=== PATIENT | female | born 1985 | race Caucasian/White ===

== ENCOUNTER 2017-10-03 18:03 | Emergency (ER) | payer MEDICAID, OTHER ==
[~2017-10-03] VITALS: Ht 167.6 cm; Wt 61.2 kg
[2017-10-03] MEDS ORDERED: MEDR150V IM (18:34)
--- NOTE | 2017-10-03 18:38 | ED Abdominal Pain ---
General Chief Complaint: Abdominal/GI Problems Stated Complaint: LOWER ABD PAIN/BLOOD IN URINE Nursing Triage Note: Pt claims her son jumped on her low abdomen with his knees yesterday evening. c/o abd pain and low back pain. States she went to [facility] yesterday and "they didn't do anything for her". Sepsis Screen: No Definite Risk Source of Information: Patient Exam Limitations: No Limitations History of Present Illness Time Seen By Provider: 18:28 Initial Comments Patient has ER by private conveyance with a chief complaint that last night while wrestling with HER-2 stepsons 5 and 7 years old the 7-year-old who is approximately 50 pounds jumped on her abdomen while she was laying on her back and landed with both knees just suprapubically. She started having a lot of pain so she did not go to work at night. She also is expressing pain in her back that runs up her spine and about her thoracic T8 level. She has no history of back pain. She says she also has experienced painful urination since then. She has used ibuprofen which gives her marginal relief. Heating pad worked very well to relieve her pain. She's had a history of 2 sections in the past. No other surgeries on her abdomen. She says she went to [facility] and that took urine but did no further evaluation. She denies any nausea or vomiting , fevers, chills, shortness of breath, chest pain, cough. She has not had a bowel movement since the accident. Allergies and Home Medications Allergies Coded Allergies: Penicillins (Verified Allergy, Unknown, 10/03/17) morphine (Verified Allergy, Unknown, 10/03/17) Home Medications Medroxyprogesterone Acetate 150 Mg/1 Ml Vial, 150 MG IM UD, (Reported) Review of Systems Constitutional: No chills, No fever Respiratory: Denies Cough, Denies Shortness of Air Cardiovascular: Denies Chest Pain, Denies Lightheadedness Gastrointestinal: See HPI, Denies Abdomen Distended, Abdominal Pain, Denies Blood Streaked Stools Genitourinary: See HPI, Burning, Denies Discharge, Denies Drainage, Pain Musculoskeletal: see HPI, back pain, No joint pain Skin: No pruritus, No rash Psychiatric/Neurological: Denies Headache, Denies Numbness, Denies Paresthesia Past Iipvjje-Cmeloa-Tuzyob Hx Patient Social History Alcohol Use: Denies Use Recreational Drug Use: No Smoking Status: Current Everyday Smoker Recent Foreign Travel: No Contact w/Someone Who Travel: No Recent Infectious Disease Expo: No Surgeries History of Surgeries: Yes Surgeries: Section Respiratory History of Respiratory Disorde: Yes Respiratory Disorders: Asthma Cardiovascular History of Cardiac Disorders: No Neurological History of Neurological Disord: No Reproductive System : No Genitourinary History of Genitourinary Disor: No Gastrointestinal History of Gastrointestinal Di: No Musculoskeletal History of Musculoskeletal Dis: No Endocrine History of Endocrine Disorders: No HEENT History of HEENT Disorders: No Cancer History of Cancer: No Psychosocial History of Psychiatric Problem: No Integumentary History of Skin or Integumenta: No Blood Transfusions History of Blood Disorders: No Physical Exam Vital Signs VS - Last 72 Hours, by Label 10/03/17 18:19 Temp 98.2 Pulse 70 Resp 18 B/P (MAP) 139/91 Pulse Ox 98 O2 Delivery Room Air Capillary Refill : Less Than 3 Seconds General Appearance: WD/WN, mild distress HEENT: PERRL/EOMI, pharynx normal Neck: non-tender, normal inspection Respiratory: chest non-tender, lungs clear, normal breath sounds Cardiovascular: normal peripheral pulses, regular rate, rhythm, no edema Gastrointestinal: normal bowel sounds, soft, No rebound, tenderness (suprapubic ), No mass Extremities: non-tender, normal capillary refill Neurologic/Psychiatric: alert, oriented x 3 Skin: normal color, warm/dry Progress/Results/Core Measures Results/Orders Lab Results Laboratory Tests Test 10/03/17 18:20 Range/Units Urine Color YELLOW Urine Clarity CLEAR Urine pH 7 5-9 Urine Specific [place] 1.015 L 1.016-1.022 Urine Protein NEGATIVE NEGATIVE Urine Glucose (UA) NEGATIVE NEGATIVE Urine Ketones NEGATIVE NEGATIVE Urine Nitrite NEGATIVE NEGATIVE Urine Bilirubin NEGATIVE NEGATIVE Urine Urobilinogen 1 NORMAL MG/DL Urine Leukocyte Esterase 1+ H NEGATIVE Urine RBC (Auto) 3+ H NEGATIVE Urine RBC 0-2 /HPF Urine WBC 2-5 /HPF Urine Squamous Epithelial Cells 5-10 /HPF Urine Crystals NONE /LPF Urine Bacteria LARGE H /HPF Urine Casts NONE /LPF Urine Mucus LARGE H /LPF Urine Culture Indicated YES My Orders Orders - NANCY PRADO Ua Culture If Indicated (10/03/17 18:35) Ketorolac Injection (Toradol Injection) (10/03/17 19:00) Urine Culture (10/03/17 18:20) Medications Given in ED Current Medications Medications Dose Ordered Sig/Klever Route Start Time Stop Time Status Last Admin Dose Admin Ketorolac Tromethamine 15 mg ONCE ONCE IVP 10/03/17 19:00 10/03/17 19:01 DC 10/03/17 19:06 15 MG Vital Signs/I&O Vital Sign - Last 12Hours 10/03/17 18:19 Temp 98.2 Pulse 70 Resp 18 B/P (MAP) 139/91 Pulse Ox 98 O2 Delivery Room Air Blood Pressure Mean: 107 Progress Note #1: Time: 18:37 Progress Note We will obtain a UA. If there is no blood or concerning features and will just x -ray early thoracic and lumbar spine. If there is any blood in it we'll get a CT of the abdomen with contrast looking for contusion, rupture, ureter laceration etc. This seems unlikely given the history that this would result in severe injury. However she is describing quite a bit of pain and has now missed 2 shifts of work. Progress Note #2: Time: 19:46 Progress Note UA shows just a few red blood cells in it. Discussed a CT scan with contrast to look for possible damage to urinary system versus observation and follow up outpatient with primary care physician in repeating UA in a few days. Patient feels that she would like to continue the pain medicines and follow up outpatient with her primary care physician for further management. We discussed the risk benefits and alternatives to observation versus further invasive testing to include radiation, incidental illness, falsely negative findings. Departure Impression Impression: Primary Impression: Abdominal wall pain Disposition: 01 HOME, SELF-CARE Condition: Stable Departure-Patient Inst. Decision time for Depature: 19:48 Referrals: NO,LOCAL PHYSICIAN (PCP/Family) Primary Care Physician Patient Instructions: Acute Abdomen (Belly Pain), Adult (DC) Add. Discharge Instructions: Drink plenty of fluids to flush her bladder out. Take Tylenol 1000 mg every 8 hours along with ibuprofen 800 mg every 8 hours or you may use Aleve instead of ibuprofen 2 capsules twice a day. Heating pad is reasonable. Follow up with your primary care physician this week to recheck her urine. All discharge instructions reviewed with patient and/or family. Voiced understanding. Work/School Note: Work Release Form Date Seen in the Emergency Department: Oct 03, 2017 Return to Work: Oct 04, 2017 Restrictions: No Restrictions NANCY PRADO Oct 03, 2017 18:38
[2017-10-03 18:44] LABS: BILIRUBIN,URINE NEGATIVE (NEGATIVE); KETONES,URINE NEGATIVE (NEGATIVE); LEUKOCYTE ESTERASE ,URINE 1+ (NEGATIVE); NITRITE,URINE NEGATIVE (NEGATIVE); PH,URINE 7 (5-9); PROTEIN,URINE NEGATIVE (NEGATIVE); UROBILINOGEN,URINE 1 MG/DL (NORMAL)
[2017-10-03] MEDS ORDERED: KETOROLAC 30 MG/ML VIAL IVP ONE (19:00)
[2017-10-03 19:57] VITALS: BP 120/93
== END 2017-10-03 19:55 | disposition home or self-care (01) ==
LOC: ER 18:06
DX: R10.30 Lower abdominal pain, unspecified (principal); J45.909 Unspecified asthma, uncomplicated; F17.200 Nicotine dependence, unspecified, uncomplicated; Z87.59 Personal history of other complications of pregnancy, childbirth and the puerperium
CPT/HCPCS: 81000; 87088; 96374; 99284

== ENCOUNTER 2017-10-07 22:20 | Emergency (ER) | payer MEDICAID ==
[~2017-10-07] VITALS: Ht 167.6 cm; Wt 59.0 kg
[~2017-10-07 22:20] MED LIST: MEDR150V IM
[2017-10-07] MEDS ORDERED: NS IV 1000 ML 1,000 ML IV ONE (23:23)
[2017-10-07 23:29] LABS: KETONES,URINE 1+ (NEGATIVE); LEUKOCYTE ESTERASE ,URINE 2+ (NEGATIVE); NITRITE,URINE NEGATIVE (NEGATIVE); PH,URINE 6.5 (5-9); PROTEIN,URINE 1+ (NEGATIVE); UROBILINOGEN,URINE 4 MG/DL (NORMAL)
--- NOTE | 2017-10-07 23:29 | ED Abdominal Pain ---
General Chief Complaint: Abdominal/GI Problems Stated Complaint: R SIDE STOMACH PAIN Source of Information: Patient, Old Records Exam Limitations: No Limitations History of Present Illness Time Seen By Provider: 23:22 Initial Comments Patient re-presents to the ER after having a episode of roughhousing with her children in getting kneed in the right side Tuesday, 5 days ago. She was seen that day and examined by this provider and after NSAIDs her pain got better so we elected not to do any further imaging and just do an observation period. Patient says she went home and her pain has came back despite using Tylenol Motrin with no relief. Her pain is now worse than it was before. She is having a hard time stretching out her left leg to full extension because it makes the pain on her right lower quadrant and right upper quadrant worse. She's had no surgeries on her belly except for 2 C-sections. She is having no problems with her bowels and had a bowel movement today. She is been urinating okay without this area or discharge. She's had some nausea and vomited after she ate pizza today. She says she's not to keep anything down after she eats or drinks. She has not seen any blood in the stool or vomit. She has not followed up with her primary care physician yet. Allergies and Home Medications Allergies Coded Allergies: Penicillins (Verified Allergy, Unknown, 10/07/17) morphine (Verified Allergy, Unknown, 10/07/17) Home Medications Albuterol Sulfate 1 Puff Puff, 2 PUFF IH Q4H, (Reported) 1 PUFF = 90 MCG Ibuprofen 200 Mg Tablet, 200 MG PO, (Reported) Medroxyprogesterone Acetate 150 Mg/1 Ml Vial, 150 MG IM UD, (Reported) Review of Systems Constitutional: No chills, No diaphoresis EENTM: No Symptoms Reported Respiratory: Denies Cough, Denies Shortness of Air Cardiovascular: Denies Chest Pain, Denies Lightheadedness Gastrointestinal: See HPI, Denies Abdomen Distended, Abdominal Pain, Nausea, Vomiting, Other Genitourinary: Denies Burning, Denies Discharge, Denies Drainage Musculoskeletal: No back pain, No joint pain Skin: No pruritus, No rash Psychiatric/Neurological: Denies Headache, Denies Numbness, Denies Paresthesia Past Lfgxuwz-Ynadde-Pjidgw Hx Patient Social History Recent Foreign Travel: No Contact w/Someone Who Travel: No Surgeries History of Surgeries: Yes Surgeries: Section Respiratory History of Respiratory Disorde: Yes Respiratory Disorders: Asthma Cardiovascular History of Cardiac Disorders: No Neurological History of Neurological Disord: No Genitourinary History of Genitourinary Disor: No Gastrointestinal History of Gastrointestinal Di: No Musculoskeletal History of Musculoskeletal Dis: No Endocrine History of Endocrine Disorders: No HEENT History of HEENT Disorders: No Cancer History of Cancer: No Psychosocial History of Psychiatric Problem: No Integumentary History of Skin or Integumenta: No Blood Transfusions History of Blood Disorders: No Physical Exam Vital Signs VS - Last 72 Hours, by Label 10/07/17 23:43 Temp 97.8 Pulse 76 Resp 14 B/P (MAP) 130/85 (100) Pulse Ox 98 O2 Delivery Room Air Capillary Refill : General Appearance: WD/WN, moderate distress HEENT: PERRL/EOMI, pharynx normal Neck: non-tender, normal inspection Respiratory: chest non-tender, lungs clear, normal breath sounds, no respiratory distress, no accessory muscle use Cardiovascular: normal peripheral pulses, regular rate, rhythm, no edema Gastrointestinal: normal bowel sounds, soft, no organomegaly, No distended, rebound, tenderness (right lower quadrant also some pain in the right upper quadrant without Martines's positive sign), other (pain to percussion to her heel located to her right lower quadrant. Pain in her right lower quadrant with shaking of her abdomen.) Extremities: normal inspection, no pedal edema, normal capillary refill Back: normal inspection, no CVA tenderness Neurologic/Psychiatric: alert, normal mood/affect, oriented x 3 Skin: normal color, warm/dry Progress/Results/Core Measures Results/Orders Lab Results Laboratory Tests Test 10/07/17 23:15 10/07/17 23:25 Range/Units Urine Color YELLOW Urine Clarity SLIGHTLY CLOUDY Urine pH 6.5 5-9 Urine Specific [place] 1.020 1.016-1.022 Urine Protein 1+ H NEGATIVE Urine Glucose (UA) NEGATIVE NEGATIVE Urine Ketones 1+ H NEGATIVE Urine Nitrite NEGATIVE NEGATIVE Urine Bilirubin 1+ H NEGATIVE Urine Urobilinogen 4 H NORMAL MG/DL Urine Leukocyte Esterase 2+ H NEGATIVE Urine RBC (Auto) 4+ H NEGATIVE Urine RBC 5-10 H /HPF Urine WBC 2-5 /HPF Urine Squamous Epithelial Cells 10-25 H /HPF Urine Crystals NONE /LPF Urine Bacteria LARGE H /HPF Urine Casts NONE /LPF Urine Mucus LARGE H /LPF Urine Culture Indicated YES Urine Test NEGATIVE NEGATIVE Urine Opiates Screen NEGATIVE NEGATIVE Urine Oxycodone Screen NEGATIVE NEGATIVE Urine Methadone Screen NEGATIVE NEGATIVE Urine Propoxyphene Screen NEGATIVE NEGATIVE Urine Barbiturates Screen NEGATIVE NEGATIVE Ur Tricyclic Antidepressants Screen NEGATIVE NEGATIVE Urine Phencyclidine Screen NEGATIVE NEGATIVE Urine Amphetamines Screen NEGATIVE NEGATIVE Urine Methamphetamines Screen NEGATIVE NEGATIVE Urine Benzodiazepines Screen NEGATIVE NEGATIVE Urine Cocaine Screen NEGATIVE NEGATIVE Urine Cannabinoids Screen NEGATIVE NEGATIVE White Blood Count 10.8 4.3-11.0 10^3/uL Red Blood Count 4.86 4.35-5.85 10^6/uL Hemoglobin 14.8 11.5-16.0 G/DL Hematocrit 43 35-52 % Mean Corpuscular Volume 88 80-99 FL Mean Corpuscular Hemoglobin 31 25-34 PG Mean Corpuscular Hemoglobin Concent 35 32-36 G/DL Red Cell Distribution Width 12.5 10.0-14.5 % Platelet Count 223 130-400 10^3/uL Mean Platelet Volume 12.0 H 7.4-10.4 FL Neutrophils (%) (Auto) 66 42-75 % Lymphocytes (%) (Auto) 25 12-44 % Monocytes (%) (Auto) 8 0-12 % Eosinophils (%) (Auto) 1 0-10 % Basophils (%) (Auto) 0 0-10 % Neutrophils # (Auto) 7.1 1.8-7.8 X 10^3 Lymphocytes # (Auto) 2.7 1.0-4.0 X 10^3 Monocytes # (Auto) 0.9 0.0-1.0 X 10^3 Eosinophils # (Auto) 0.1 0.0-0.3 10^3/uL Basophils # (Auto) 0.0 0.0-0.1 10^3/uL Sodium Level 141 135-145 MMOL/L Potassium Level 3.7 3.6-5.0 MMOL/L Chloride Level 108 H 98-107 MMOL/L Carbon Dioxide Level 24 21-32 MMOL/L Anion Gap 9 5-14 MMOL/L Blood Urea Nitrogen 9 7-18 MG/DL Creatinine 0.82 0.60-1.30 MG/DL Estimat Glomerular Filtration Rate > 60 BUN/Creatinine Ratio 11 Glucose Level 91 70-105 MG/DL Calcium Level 9.8 8.5-10.1 MG/DL Magnesium Level 2.3 1.8-2.4 MG/DL Total Bilirubin 0.6 0.1-1.0 MG/DL Aspartate Amino Transf (AST/SGOT) 12 5-34 U/L Alanine Aminotransferase (ALT/SGPT) 13 0-55 U/L Alkaline Phosphatase 54 40-136 U/L Total Protein 7.8 6.4-8.2 GM/DL Albumin 4.5 3.2-4.5 GM/DL Lipase 22 8-78 U/L My Orders Orders - NANCY PRADO Cbc With Automated Diff (10/07/17 23:23) Comprehensive Metabolic Panel (10/07/17 23:23) Drug Screen Stat (Urine) (10/07/17 23:23) Hcg,Qualitative Urine (10/07/17 23:23) Lipase (10/07/17 23:23) Magnesium (10/07/17 23:23) Ua Culture If Indicated (10/07/17 23:23) Saline Lock/Iv-Start (10/07/17 23:23) Ns Iv 1000 Ml (Sodium Chloride 0.9%) (10/07/17 23:23) Ketorolac Injection (Toradol Injection) (10/07/17 23:30) Urine Culture (10/07/17 23:15) Ct Abdomen/Pelvis W (10/08/17 00:01) Iohexol Injection (Omnipaque 350 Mg/Ml 1 (10/08/17 00:45) Ns (Ivpb) (Sodium Chloride 0.9% Ivpb Bag (10/08/17 00:45) Medications Given in ED Current Medications Medications Dose Ordered Sig/Klever Route Start Time Stop Time Status Last Admin Dose Admin Iohexol 100 ml ONCE ONCE IV 10/08/17 00:45 10/08/17 00:46 UNV 10/08/17 00:36 100 ML Ketorolac Tromethamine 15 mg ONCE ONCE IVP 10/07/17 23:30 12 23:31 DC 10/07/17 23:34 15 MG Sodium Chloride 80 ml ONCE ONCE IV 10/08/17 00:45 10/08/17 00:46 UNV 10/08/17 00:36 80 ML Sodium Chloride 1,000 ml @ 0 mls/hr Q0M ONCE IV 10/07/17 23:23 10/07/17 23:25 DC 10/07/17 23:33 0 MLS/HR Vital Signs/I&O Vital Sign - Last 12Hours 10/07/17 23:43 Temp 97.8 Pulse 76 Resp 14 B/P (MAP) 130/85 (100) Pulse Ox 98 O2 Delivery Room Air Progress Note #1: Time: 00:50 Progress Note She had 0-2 red blood cells earlier in the week and now she has 5-10 per high- power field. CT of her abdomen and if we don't see anything over and she may need referral to urology. Progress Note #2: Time: 02:09 Progress Note Pain and nausea has improved. She says that earlier this week she went to follow -up with a nurse practitioner that she seen in the past in [place] after being seen at the ER and they took a urinalysis and told her she had a urinary tract infection. The put her on Bactrim but her symptoms have not gotten any better on the Bactrim. She is still having nausea and pain all week. She says she has one day left of Bactrim. This lends credence to the patient's symptoms not being due to a urinary tract infection. The patient has not had a period in several months because she has been on Depo-Provera most year. Diagnostic Imaging Diagonstic Imaging: CT Plain Films/CT/US/NM/MRI: abdomen, pelvis Comments Stat read impression: No acute intra-abdominal abnormality. Reviewed: Reviewed by Me (with contrast) Consults Consults : Consulting Physician: CHENCHO AREVALO MD Consults Notes Discussed the case imaging and findings and he agrees the patient should be seen in his clinic and she'll probably need cystoscopy. Departure Impression Impression: Primary Impression: Abdominal wall pain Additional Impression: Hematuria Qualified Codes: R31.29 - Other microscopic hematuria Disposition: HOME, SELF-CARE Condition: Improved Departure-Patient Inst. Decision time for Depature: 02:10 Referrals: NO,LOCAL PHYSICIAN (PCP/Family) Primary Care Physician Patient Instructions: Blood in the Urine (Hematuria), Adult (DC) Add. Discharge Instructions: If you're having pain you can use heating pads, icy hot, Biofreeze. You can also use Tylenol 1000 mg every 8 hours mixed with ibuprofen 800 mg every 8 hours. If this does not control your pain then you may also use the hydrocodone one tablet every 6 hours. If you're using hydrocodone you should use the MiraLAX 1 capful in a glass of water, juice, coffee etc. daily. Tuesday morning please call Dr. Arevalo, urologist at his office at [phone] and get an appointment to be followed up for your blood in the urine. All discharge instructions reviewed with patient and/or family. Voiced understanding. Scripts Ondansetron (Ondansetron Odt) 4 Mg Tab.rapdis 4 MG PO Q6H Y for NAUSEA/VOMITING, #12 TAB 0 Refills Prov: NANCY PRADO 10/08/17 Hydrocodone/Acetaminophen (Hydrocodon -Acetaminophen 5-325) 1 Each Tablet 1 EACH PO Q6H Y for BREAKTHROUGH PAIN, #16 TAB 0 Refills Prov: NANCY PRADO 10/08/17 Copy Copies To 1: CHENCHO AREVALO MD, TITUS J Oct 07, 2017 23:29
[2017-10-07] MEDS ORDERED: KETOROLAC 30 MG/ML VIAL IVP ONE (23:30)
[2017-10-07 23:33] LABS: BASOPHILS % (AUTO) 0 % (0-10); EOSINOPHILS # (AUTO) 0.1 10^3/uL (0.0-0.3); EOSINOPHILS % (AUTO) 1 % (0-10); LYMPHOCYTES # (AUTO) 2.7 X 10^3 (1.0-4.0); LYMPHOCYTES % (AUTO) 25 % (12-44); MEAN CORPUSCULAR HEMOGLOBIN 31 PG (25-34); MEAN CORPUSCULAR HGB CONC 35 G/DL (32-36); MEAN CORPUSCULAR VOLUME 88 FL (80-99); MONOCYTES # (AUTO) 0.9 X 10^3 (0.0-1.0); MONOCYTES % (AUTO) 8 % (0-12); NEUTROPHILS # (AUTO) 7.1 X 10^3 (1.8-7.8); NEUTROPHILS % (AUTO) 66 % (42-75); PLATELET COUNT 223 10^3/uL (130-400); RED BLOOD COUNT 4.86 10^6/uL (4.35-5.85); RED CELL DISTRIBUTION WIDTH 12.5 % (10.0-14.5); WHITE BLOOD COUNT 10.8 10^3/uL (4.3-11.0)
[2017-10-07 23:39] LABS: BILIRUBIN,URINE 1+ (NEGATIVE)
[2017-10-07] MEDS ORDERED: RT-ALBUINH IH (23:53)
[2017-10-07] MEDS ORDERED: IBUP-2055 PO (23:53)
[2017-10-07 23:54] LABS: ALANINE AMINOTRANSFERASE 13 U/L (0-55); ALBUMIN 4.5 GM/DL (3.2-4.5); ANION GAP 9 MMOL/L (5-14); ASPARTATE AMINO TRANSFERASE 12 U/L (5-34); BILIRUBIN,TOTAL 0.6 MG/DL (0.1-1.0); BLOOD UREA NITROGEN 9 MG/DL (7-18); BUN/CREATININE RATIO 11; CALCIUM 9.8 MG/DL (8.5-10.1); CARBON DIOXIDE 24 MMOL/L (21-32); CHLORIDE 108 MMOL/L (98-107); CREATININE SERUM 0.82 MG/DL (0.60-1.30); GFR ESTIMATED > 60; GLUCOSE 91 MG/DL (70-105); LIPASE 22 U/L (8-78); MAGNESIUM 2.3 MG/DL (1.8-2.4); POTASSIUM 3.7 MMOL/L (3.6-5.0); SODIUM 141 MMOL/L (135-145); TOTAL PROTEIN 7.8 GM/DL (6.4-8.2)
[2017-10-08] MEDS ORDERED: NS 100 ML (IVPB) BAG IV ONE (00:45)
[2017-10-08] MEDS ORDERED: IOHEXOL 350 MG/ML 100 ML (OMNIPAQUE 350) VIAL IV ONE (00:45)
[2017-10-08] MEDS ORDERED: ONDA4TAB11 PO (02:13)
[2017-10-08] MEDS ORDERED: HYDR-3812 PO (02:13)
[2017-10-08 02:25] VITALS: BP 130/85
--- NOTE | 2017-10-08 09:26 | Diagnostic Imaging Report ---
PROCEDURE: CT abdomen and pelvis with contrast. TECHNIQUE: Multiple contiguous axial images were obtained through the abdomen and pelvis after administration of intravenous contrast. INDICATION: Abdominal pain. COMPARISON: None available FINDINGS: Mild bibasilar atelectasis. The liver, spleen, adrenal glands, and pancreas are unremarkable. The gallbladder is predominantly decompressed, though otherwise unremarkable. The kidneys are unremarkable. No aneurysmal dilatation of abdominal aorta. The uterus and adnexal regions are unremarkable for age. The urinary bladder is predominantly decompressed, though otherwise unremarkable. The appendix is unremarkable. No bowel obstruction or pneumatosis. No significant adenopathy, free air, or free fluid within the abdomen or pelvis. No acute osseous abnormality. IMPRESSION: No acute abnormality identified within abdomen or pelvis. Agree with preliminary interpretation. Dictated by: Dictated on workstation # [id number]
== END 2017-10-08 02:20 | disposition home or self-care (01) ==
LOC: EDUNIT# 22:20 → ER 22:21
DX: R10.31 Right lower quadrant pain (principal); R31.9 Hematuria, unspecified; J45.909 Unspecified asthma, uncomplicated; Z87.59 Personal history of other complications of pregnancy, childbirth and the puerperium
CPT/HCPCS: 36415; 74177; 80053; 80306; 81000; 83690; 83735; 84703; 85025; 87088

== ENCOUNTER 2017-11-28 18:45 | Emergency (ER) | payer MEDICAID ==
[~2017-11-28] VITALS: Ht 167.6 cm; Wt 74.4 kg
[~2017-11-28 18:45] MED LIST changes: +ACHD5005 PO; +IBUP-2055 PO; +ONDA4TAB11 PO; +RT-ALBUINH IH
--- NOTE | 2017-11-28 19:20 | ED Abdominal Pain ---
General Stated Complaint: LUMP ON STOMACH, COUGH Source of Information: Patient Exam Limitations: No Limitations History of Present Illness Date Seen by Provider: Nov 28, 2017 Time Seen by Provider: 19:18 Initial Comments LUQ abdominal wall lump since last night came about after episodes of coughing, fevers x1 week. Nasuea. Normal bowels. Timing/Duration: 1-2 Days Severity/Quality: Moderate Location: LUQ Radiation: No Radiation Activities at Onset: None Allergies and Home Medications Allergies Coded Allergies: Penicillins (Verified Allergy, Unknown, 10/07/17) morphine (Verified Allergy, Unknown, 10/07/17) Home Medications Albuterol Sulfate 1 Puff Puff, 2 PUFF IH Q4H, (Reported) 1 PUFF = 90 MCG Hydrocodone Bit/Acetaminophen 1 Each Tablet, 1 EACH PO Q6H PRN for BREAKTHROUGH PAIN, #16 Ref 0 Prescribed by: NANCY PRADO on 10/08/173 Ibuprofen 200 Mg Tablet, 200 MG PO, (Reported) Medroxyprogesterone Acetate 150 Mg/1 Ml Vial, 150 MG IM UD, (Reported) Ondansetron 4 Mg Tab.rapdis, 4 MG PO Q6H PRN for NAUSEA/VOMITING, #12 Ref 0 Prescribed by: NANCY PRADO on 10/08/17212 Review of Systems Constitutional: see HPI EENTM: No Symptoms Reported Respiratory: No Symptoms Reported Cardiovascular: No Symptoms Reported Gastrointestinal: See HPI, Abdominal Pain Genitourinary: No Symptoms Reported Musculoskeletal: no symptoms reported Skin: no symptoms reported Psychiatric/Neurological: No Symptoms Reported Past Iayxyie-Iwzrgv-Mgfxrg Hx Patient Social History Recent Foreign Travel: No Contact w/Someone Who Travel: No Recent Hopitalizations: No Surgeries History of Surgeries: Yes Surgeries: Section Respiratory History of Respiratory Disorde: Yes Respiratory Disorders: Asthma Cardiovascular History of Cardiac Disorders: No Neurological History of Neurological Disord: No Genitourinary History of Genitourinary Disor: No Gastrointestinal History of Gastrointestinal Di: No Musculoskeletal History of Musculoskeletal Dis: No Endocrine History of Endocrine Disorders: No HEENT History of HEENT Disorders: No Cancer History of Cancer: No Psychosocial History of Psychiatric Problem: No Integumentary History of Skin or Integumenta: No Blood Transfusions History of Blood Disorders: No Physical Exam Vital Signs Capillary Refill : General Appearance: WD/WN, no apparent distress HEENT: PERRL/EOMI, normal ENT inspection Neck: non-tender, full range of motion Respiratory: normal breath sounds, no respiratory distress, no accessory muscle use Gastrointestinal: normal bowel sounds, soft, other (palpable lump Left upper abdominal wall, tender to palpation. bowel sounds normal) Extremities: normal range of motion, non-tender Neurologic/Psychiatric: alert, normal mood/affect, oriented x 3 Progress/Results/Core Measures Results/Orders My Orders Orders - IFEANYI SZYMANSKI APRN Ct Abdomen/Pelvis Wo (11/28/17 19:17) Departure Impression Impression: Primary Impression: Abdominal wall muscle spasm Disposition: HOME, SELF-CARE Condition: Stable Departure-Patient Inst. Decision time for Depature: 19:41 Referrals: NO,LOCAL PHYSICIAN (PCP/Family) Primary Care Physician Patient Instructions: NO INSTRUCTIONS GIVEN Add. Discharge Instructions: Follow up with your doctor next week for recheck. nausea medication as needed. Scripts Ondansetron (Zofran Odt) 8 Mg Tab.rapdis 8 MG PO Q6H Y for NAUSEA/VOMITING-1ST LINE, #10 TAB Prov: IFEANYI SZYMANSKI APRN 11/28/17 IFEANYI SZYMANSKI APRN Nov 28, 2017 19:20
[2017-11-28] MEDS ORDERED: ONDA8TAB9 PO (19:42)
--- NOTE | 2017-11-28 19:43 | Diagnostic Imaging Report ---
Clinical indication: Patient states a lump came out last night on her left upper quadrant with no pain. Patient has had the flu for a week. Exam: CT exam of the abdomen and pelvis is performed without IV or oral contrast using stone protocol. Coronal and sagittal reformatted images were created. Comparisons: CT scan of the abdomen and pelvis with contrast dated 10/08/2017. Findings: Visualized lung bases: There is minimal dependent atelectasis in both lung bases posteriorly. Liver: Unremarkable as visualized. Gallbladder: Unremarkable. Pancreas: Unremarkable as visualized. Spleen: Unremarkable as visualized. Adrenal glands: Unremarkable. Kidneys/ ureters: There is a 1 mm nonobstructive stone involving the upper pole of the right kidney. This was not seen on the prior CT scan. Otherwise, both kidneys are unremarkable. There is no hydronephrosis. Aorta: Unremarkable as visualized. Intraabdominal/ retroperitoneal contents: Unremarkable. Intestines: Unremarkable as visualized. Appendix: Unremarkable. Small amount of high density material seen within the appendix. Bladder: Unremarkable as visualized. Pelvic organs: Unremarkable as visualized. Extra abdominal/ pelvis regions: Unremarkable. Abdominal wall: Stable appearance with no abdominal or inguinal hernia seen. Bones: Unremarkable. Impression: 1: There is a nonobstructive 1 mm stone involving the upper pole of the right kidney. This was seen on the comparison CT scan. 2: Otherwise, stable and unremarkable CT scan of the abdomen and pelvis. There is no abdominal wall abnormality seen. Dictated by: Dictated on workstation # [id number]
[2017-11-28 19:45] VITALS: BP 128/87
== END 2017-11-28 19:45 | disposition home or self-care (01) ==
LOC: EDUNIT# 18:45 → ER 18:47
DX: M62.838 Other muscle spasm (principal); J45.909 Unspecified asthma, uncomplicated; Z87.59 Personal history of other complications of pregnancy, childbirth and the puerperium
CPT/HCPCS: 74176; 99282

== ENCOUNTER 2018-03-26 21:36 | Emergency (ER) | payer MEDICAID ==
[~2018-03-26] VITALS: Ht 167.6 cm; Wt 74.4 kg
[~2018-03-26 21:36] MED LIST changes: +ONDA8TAB9 PO
--- NOTE | 2018-03-26 22:33 | ED Lower Extremity ---
General Chief Complaint: Lower Extremity Stated Complaint: L FOOT TOE INJ Nursing Triage Note: stated that a table fell on left great toe- bruised, swollen pain with movement yesterday Nursing Sepsis Screen: No Definite Risk Source: patient Exam Limitations: no limitations History of Present Illness Date Seen by Provider: March 26, 2018 Time Seen by Provider: 22:33 Initial Comments 33-year-old female patient presents to the emergency department with complaints of left great toe pain after dropping the edge of a table onto the toe yesterday. Now complains of swelling, bruising, and pain. Patient is able to ambulate, but does report increased pain in the toe. Location Injury Occurred: home Onset: yesterday Pain/Injury Location: left 1st toe Method of Injury: direct blow Modifying Factors: Improves With Immobilization; Worse With Movement Allergies and Home Medications Allergies Coded Allergies: Penicillins (Verified Allergy, Unknown, 10/07/17) morphine (Verified Allergy, Unknown, 10/07/17) sertraline (Unverified Allergy, Unknown, 03/26/18) Home Medications Albuterol Sulfate 1 Puff Puff, 2 PUFF IH Q4H, (Reported) 1 PUFF = 90 MCG Hydrocodone Bit/Acetaminophen 1 Each Tablet, 1 EACH PO Q6H PRN for BREAKTHROUGH PAIN Prescribed by: NANCY PRADO on 10/08/17212 Hydrocodone/Acetaminophen 1 Each Tablet, 1 EACH PO Q6H PRN for pain Prescribed by: SERENA MARQUEZ on 03/26/18 9236 Medroxyprogesterone Acetate 150 Mg/1 Ml Vial, 150 MG IM UD, (Reported) Ondansetron 4 Mg Tab.rapdis, 4 MG PO Q6H PRN for NAUSEA/VOMITING Prescribed by: NANCY PRADO on 10/08/17212 Ondansetron 8 Mg Tab.rapdis, 8 MG PO Q6H PRN for NAUSEA/VOMITING-1ST LINE Prescribed by: IFEANYI SZYMANSKI on 11/28/17 194 Patient Home Medication List Home Medication List Reviewed: Yes Constitutional: no symptoms reported Musculoskeletal: see HPI, joint pain (left first toe pain), joint swelling ( left first toe swelling) Skin: change in color (left first toe ecchymosis) Psychiatric/Neurological: Denies Numbness, Denies Paresthesia, Denies Tingling , Denies Weakness All Other Systems Reviewed Negative Unless Noted: Yes (Negative excepted noted.) Past Sximfgm-Ucsfgv-Qtbmhk Hx Past Med/Social Hx: Reviewed Nursing Past Med/Soc Hx Patient Social History Alcohol Use: Denies Use Recreational Drug Use: No Smoking Status: Current Everyday Smoker Type Used: Electronic/Vapor Recent Foreign Travel: No Contact w/Someone Who Travel: No Recent Infectious Disease Expo: No Recent Hopitalizations: No Physical Abuse: No Sexual Abuse: No Mistreated: No Fear: No Immunizations Up To Date Tetanus Booster (TDap): Less than 5yrs Past Medical History Surgeries: Yes Section Respiratory: Yes Asthma Cardiac: No Neurological: No Genitourinary: No Gastrointestinal: No Musculoskeletal: No Endocrine: No HEENT: No Cancer: No Psychosocial: No Nursing Suicide Risk Score: 0 Integumentary: No Blood Disorders: No Family Medical History Reviewed Nursing Family Hx Physical Exam Vital Signs Capillary Refill : Less Than 3 Seconds General Appearance: WD/WN, no apparent distress Cardiovascular: normal peripheral pulses, regular rate, rhythm, no murmur Respiratory: lungs clear, normal breath sounds, no respiratory distress, no accessory muscle use Legs: bilateral leg non-tender, bilateral leg normal inspection, bilateral leg normal range of motion, bilateral leg no evidence of injury Knees: bilateral knee non-tender, bilateral knee normal inspection, bilateral knee normal range of motion, bilateral knee no evidence of injury Ankles: bilateral ankle non-tender, bilateral ankle normal inspection, bilateral ankle normal range of motion, bilateral ankle no evidence of injury Feet: right foot non-tender, right foot normal inspection, right foot normal range of motion, right foot no evidence of injury; left foot bone tenderness ( left 1st toe TTP), left foot ecchymosis (left 1st toe), left foot limited range of motion (left 1st toe), left foot pain (left 1st toe), left foot soft tissue tenderness (left 1st toe), left foot swelling (left 1st toe) Neurologic/Tendon: normal sensation, normal motor functions, normal tendon functions, responds to pain, no evidence tendon injury Neurologic/Psychiatric: no motor/sensory deficits, alert, normal mood/affect, oriented x 3 Skin: normal color, warm/dry, ecchymosis (left 1st toe) Progress/Results/Core Measures Results/Orders My Orders Orders - SERENA MARQUEZ Foot, Left, 3 Views (03/26/18 21:56) Rx-Hydrocodone/Apap 5-325 Mg (Rx-Vicodin (03/27/18 00:00) Vital Signs/I&O Blood Pressure Mean: 92 Diagnostic Imaging Diagonstic Imaging: Xray Plain Films/CT/US/NM/MRI: other (foot) Comments nondisplaced fracture of the distal left 1st phalanx. Reviewed: Reviewed/Discussed Departure Communication (Admissions) Diagnostic findings discussed with the patient. Patient was placed in a rehabilitation shoe. Plan for discharge to home. Impression Primary Impression: Fracture of toe Qualified Codes: S92.425A - Nondisplaced fracture of distal phalanx of left great toe, initial encounter for closed fracture Disposition: HOME, SELF-CARE Condition: Improved Departure-Patient Inst. Decision time for Depature: 23:58 Referrals: NO,LOCAL PHYSICIAN (PCP) Primary Care Physician VALENTINA MILES MD Patient Instructions: Toe Fracture (DC) Add. Discharge Instructions: All discharge instructions reviewed with patient and/or family. Voiced understanding. Medications as instructed. Elevate the left foot on pillows. Ice pack for 20 minute intervals as needed. Follow-up with your primary care provider or Dr Miles for recheck as an outpatient within the next 7 days. Call for appointment time. Return to the emergency department for worsened symptoms or any other concerns. 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
[2018-03-26] MEDS ORDERED: HYDR-3812 PO (23:59)
[2018-03-27] MEDS ORDERED: RX-HYDROCODONE/APAP 5/325 MG #4 TAB PK PO PRN
[2018-03-27 00:12] VITALS: BP 110/83
--- NOTE | 2018-03-27 07:16 | Diagnostic Imaging Report ---
Indication: Pain and swelling. Comparison: None. Findings: Three views of the left foot are obtained. No acute fracture, malalignment or osseous destructive process is seen. There is very minimal plantar calcaneal spurring. Impression: Minimal plantar calcaneal spurring. No additional abnormality is demonstrated. Dictated by: Dictated on workstation # [id number]
== END 2018-03-27 00:13 | disposition home or self-care (01) ==
LOC: EDUNIT# 21:36 → ER 21:37
DX: S92.402A Displaced unspecified fracture of left great toe, initial encounter for closed fracture (principal); J45.909 Unspecified asthma, uncomplicated; F17.290 Nicotine dependence, other tobacco product, uncomplicated; Z87.59 Personal history of other complications of pregnancy, childbirth and the puerperium; Z88.0 Allergy status to penicillin; Z88.5 Allergy status to narcotic agent; Z88.8 Allergy status to other drugs, medicaments and biological substances; Z79.51 Long term (current) use of inhaled steroids; W20.8XXA Other cause of strike by thrown, projected or falling object, initial encounter
CPT/HCPCS: 73630

== ENCOUNTER → 2018-05-26 | Outpatient (CLI) | payer MEDICAID ==
[~2018-05-26] MED LIST changes: +HYDR-3812 PO
--- NOTE | 2018-05-26 14:54 | Diagnostic Imaging Report ---
PROCEDURE: US abdomen complete. TECHNIQUE: Multiple real-time grayscale images were obtained over the abdomen in various projections. INDICATION: Right upper quadrant pain. FINDINGS: Liver is normal in size and without focal lesions. There is no biliary ductal dilatation. Common bile duct measures less than 3 mm. There is a 4 mm polyp in the gallbladder. There is no cholelithiasis, gallbladder wall thickening or pericholecystic fluid. Visualized portions of the pancreas are unremarkable. The spleen is normal in size. Aorta is nonaneurysmal. The IVC is patent. Both kidneys are normal. There is no ascites. IMPRESSION: 4 mm gallbladder polyp; otherwise, unremarkable right upper quadrant ultrasound. Dictated by: Dictated on workstation # [id number]
--- NOTE | 2018-05-26 15:11 | Diagnostic Imaging Report ---
PROCEDURE: US Non-ob pelvis comp/trans. TECHNIQUE: Multiple realtime grayscale images were obtained of the pelvis in various projections endovaginally. Transabdominal imaging was also performed. INDICATION: Right lower quadrant pain. Uterus measures 6.9 x 4.5 x 4.0 cm. The endometrium is 8 mm in thickness. No myometrial mass is seen. The right ovary measures 3.7 x 2.9 x 2.1 cm. Left ovary measures 2.9 x 2.2 x 2.0 cm. There is blood flow to both ovaries. No adnexal mass or free fluid is seen. IMPRESSION: Unremarkable transabdominal and transvaginal pelvic ultrasound. Dictated by: Dictated on workstation # [id number]
== END ==
LOC: RAD 13:44
PROVIDERS: ATTEND Nurse Practitioner Family
DX: K82.4 Cholesterolosis of gallbladder (principal)
CPT/HCPCS: 76700; 76830; 76856

== ENCOUNTER → 2018-06-09 | Outpatient (CLI) | payer MEDICAID ==
[~2018-06-09] MED LIST changes: +IOHEXOL 350 MG/ML 100 ML (OMNIPAQUE 350) VIAL IV ONE; +NS 250 ML (IVPB) BAG IV ONE
--- NOTE | 2018-06-09 14:43 | Diagnostic Imaging Report ---
PROCEDURE: CT abdomen and pelvis with contrast. TECHNIQUE: Multiple contiguous axial images were obtained through the abdomen and pelvis after administration of intravenous contrast. INDICATION: Right-sided abdominal pain. Comparison is made with prior CT from 11/28/2017. The lung bases are clear. No discrete liver mass is identified. The gallbladder is unremarkable. No biliary ductal dilatation is seen. The pancreas and spleen are unremarkable. No adrenal mass is identified. The kidneys are unremarkable. The aorta is non-aneurysmal. The small and large bowel loops are normal caliber. No obstruction is seen. There is no ascites. The uterus, ovaries and bladder are unremarkable. No abdominal or pelvic lymphadenopathy is seen. IMPRESSION: Unremarkable CT of the abdomen and pelvis. No acute abnormality is detected. Dictated by: Dictated on workstation # [id number]
== END ==
LOC: RAD 14:00
PROVIDERS: ATTEND Surgery
DX: R10.9 Unspecified abdominal pain (principal)
CPT/HCPCS: 74177

== ENCOUNTER 2018-06-26 05:47 | Outpatient (CLI) | payer MEDICAID ==
[~2018-06-26] VITALS: Ht 167.6 cm; Wt 74.4 kg
[~2018-06-26 05:47] MED LIST changes: -IOHEXOL 350 MG/ML 100 ML (OMNIPAQUE 350) VIAL IV ONE; -NS 250 ML (IVPB) BAG IV ONE
== END 2018-06-26 14:18 | disposition home or self-care (01) ==
LOC: PREOP 05:47
PROVIDERS: ATTEND Surgery
DX: Z01.818 Encounter for other preprocedural examination (principal)

== ENCOUNTER 2018-09-15 15:43 | Emergency (ER) | payer MEDICAID ==
[~2018-09-15] VITALS: Ht 165.1 cm; Wt 77.6 kg
--- OUTSIDE RECORDS SUMMARY | 2018-09-15 15:49 | XMS REPORT ---
Author Author AMELIA ANTONIO Organization [facility] Address [address] [place] [address] Care Team Providers Care Heart Specialist Name Role Phone AMELIA ANTONIO Unavailable PROBLEMS Type Condition ICD9-CM Code WZH27-TN Code Onset Dates Condition Status SNOMED Code Problem Gallbladder polyp K82.4 Active 241483281 Problem Muscle strain T14.8XXA Active 01388688 Problem History of asthma Z87.09 Active 536671391 Problem Pain, unspecified R52 Active 97125565 Problem Current mild episode of major depressive disorder without prior episode F32.0 Active 88569463 ALLERGIES No Information ENCOUNTERS Encounter Location Date Diagnosis [facility] [address] [address] Jul, [facility] [address] [address] Jun, [facility] [address] [address] Jun, [facility] [id number] [place] [address] May, [facility] [id number] [place] [address] May, Gallbladder polyp K82.4 and Right upper quadrant abdominal pain R10.11 [facility] [address] [address] May, Right lower quadrant abdominal pain R10.31 [facility] [address] [address] May, [facility] [address] [address] May, [facility] [address] [address] May, [facility] [id number] [place] [address] May, History of asthma Z87.09 [facility] [address], [place] [address] March, Other complications following infusion, transfusion and therapeutic injection, initial encounter T80.89XA ; Pain, unspecified R52 and Muscle strain T14.8XXA [facility] [facility] [id number] [place] [address] Feb, 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 [facility] [id number] [place] [address] Feb, [facility] [id number] [place] [address] Feb, 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 [facility] [id number] [place] [address] 09 Feb, 2018 Hospital discharge follow-up Z09 and 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 [facility] [address] [place] [address] Feb, [facility] [id number] [place] [address] 04 Feb, 2018 Encounter to establish care Z76.89 ; Reactive depression F32.9 and History of asthma Z87.09 IMMUNIZATIONS No Known Immunizations SOCIAL HISTORY Never Assessed REASON FOR VISIT PLAN OF CARE VITAL SIGNS MEDICATIONS Medication Instructions Dosage Frequency Start Date End Date Duration Status Dicyclomine HCl 20 mg Orally Four times a day 1 tablet 6h Jun, Jun, 10 days Active RESULTS No Results PROCEDURES No Known procedures INSTRUCTIONS MEDICATIONS ADMINISTERED No Known Medications MEDICAL (GENERAL) HISTORY Type Description Date Medical History Extrapyramidal and movement disorder Medical History Extrapyramidal and movement disorder Surgical History C-Sections x2 2007, 2011 Hospitalization History Childbirth
--- OUTSIDE RECORDS SUMMARY | 2018-09-15 15:49 | XMS REPORT ---
Author Author AMELIA ANTONIO Organization [facility] Address [address] [place] [address] Care Team Providers Care Vocational Ed Instructor Name Role Phone AMELIA ANTONIO Unavailable PROBLEMS Type Condition ICD9-CM Code [id number] Code Onset Dates Condition Status SNOMED Code Problem Gallbladder polyp K82.4 Active 263274170 Problem Muscle strain T14.8XXA Active 86270452 Problem History of asthma Z87.09 Active 672998853 Problem Pain, unspecified R52 Active 84875423 Problem Current mild episode of major depressive disorder without prior episode F32.0 Active 19181145 ALLERGIES No Information ENCOUNTERS Encounter Location Date Diagnosis [facility] [address] [address] Jul, [facility] [address] [address] Jun, [facility] [address] [address] Jun, [facility] [id number] [place] [address] May, [facility] [id number] [place] [address] May, Gallbladder polyp K82.4 and Right upper quadrant abdominal pain R10.11 [facility] [address] [address] May, Right lower quadrant abdominal pain R10.31 [facility] [address] [address] May, [facility] [address] [address] May, [facility] [address] [address] May, [facility] [id number] [address] May, History of asthma Z87.09 [facility] [address] [address] March, Other complications following infusion, transfusion and therapeutic injection, initial encounter T80.89XA ; Pain, unspecified R52 and Muscle strain T14.8XXA [facility] [id number] [place] [address] Feb, 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 [facility] [id number] [place] [address] Feb, [facility] [id number] [place] [address] Feb, 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 [facility] [id number] [place] [address] Feb, Hospital discharge follow-up Z09 and 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 [facility] [address] [place] [address] Feb, [facility] [place] [address] [place] [address] Feb, Encounter to establish care Z76.89 ; Reactive depression F32.9 and History of asthma Z87.09 IMMUNIZATIONS No Known Immunizations SOCIAL HISTORY Never Assessed REASON FOR VISIT Requests return call PLAN OF CARE VITAL SIGNS MEDICATIONS Unknown Medications RESULTS No Results PROCEDURES No Known procedures INSTRUCTIONS MEDICATIONS ADMINISTERED No Known Medications MEDICAL (GENERAL) HISTORY Type Description Date Medical History Extrapyramidal and movement disorder Medical History Extrapyramidal and movement disorder Surgical History C-Sections x2 2007, 2011 Hospitalization History Childbirth
--- OUTSIDE RECORDS SUMMARY | 2018-09-15 15:49 | XMS REPORT ---
Author Author AMELIA ANTONIO Organization [facility] Address [address] [place] [address] Care Team Providers Care Manager Employee Benefits Name Role Phone AMELIA ANTONIO Unavailable PROBLEMS Type Condition ICD9-CM Code IIL41-ZU Code Onset Dates Condition Status SNOMED Code Problem Gallbladder polyp K82.4 Active 876872340 Problem Muscle strain T14.8XXA Active 40260649 Problem History of asthma Z87.09 Active 754348865 Problem Pain, unspecified R52 Active 32652456 Problem Current mild episode of major depressive disorder without prior episode F32.0 Active 51503956 ALLERGIES No Information ENCOUNTERS Encounter Location Date Diagnosis [facility] [address] [address] Jul, [facility] [address] [address] Jun, [facility] [address] [address] Jun, [facility] [id number] [place] [address] May, [facility] [id number] [place] [address] May, Gallbladder polyp K82.4 and Right upper quadrant abdominal pain R10.11 [facility] [address] [address] May, Right lower quadrant abdominal pain R10.31 [facility] [address] [address] May, [facility] [address] [address] May, [facility] [address], [place] [address] May, [facility] [id number] [place] [address] May, History of asthma Z87.09 [facility] [id number], [place] [address] March, Other complications following infusion, transfusion and therapeutic injection, initial encounter T80.89XA ; Pain, unspecified R52 and Muscle strain T14.8XXA [place] [facility] [id number] [place] [address] Feb, 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 [place] [id number] [place] [address] Feb, [facility] [id number] [place] [address] Feb, 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 [facility] [id number] [place] [address] Feb, Hospital discharge follow-up Z09 and 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
--- OUTSIDE RECORDS SUMMARY | 2018-09-15 15:49 | XMS REPORT ---
Author Author AMELIA ANTONIO Organization [facility] Address [address] [place] [address] Care Team Providers Care Manufacturing Development Engineer Name Role Phone AMELIA ANTONIO Unavailable PROBLEMS Type Condition ICD9-CM Code TGK09-LL Code Onset Dates Condition Status SNOMED Code Problem History of asthma Z87.09 Active 337642231 Problem Migraine without aura and without status migrainosus, not intractable G43.009 Active 645263656 Problem History of cholecystectomy Z90.49 Active 658509182 Problem Muscle strain T14.8XXA Active 31365137 Problem Current mild episode of major depressive disorder without prior episode F32.0 Active 91505968 Problem Gallbladder polyp K82.4 Active 449441302 Problem Pain, unspecified R52 Active 20377435 ALLERGIES Substance Reaction Event Type Date Status Zoloft extrapyramidal symptoms Drug Allergy Jul, Active Propranolol HCl vomiting Drug Allergy Jul, Active Penicillin V Potassium hives Drug Allergy Jul, Active Morphine Sulfate Metal Poisoning Drug Allergy Jul, Active ENCOUNTERS Encounter Location Date Diagnosis [place] [id number] [place] [address] Aug, [facility] [id number] [place] [address] Aug, [facility] [id number] [place] [address] Jul, Migraine without aura and without status migrainosus, not intractable G43.009 ; Enlarged uterus N85.2 and Ovarian enlargement, right N83.8 [facility] [id number] [place] [address] Jun, [facility] [id number] [place] [address] Jun, [facility] [address], [place] [address] May, [facility] [id number] [place] [address] May, Gallbladder polyp K82.4 and Right upper quadrant abdominal pain R10.11 [facility] [id number] [address] May, Right lower quadrant abdominal pain R10.31 [facility] [id number] [address] May, [place] [id number] [place] [address] May, [facility] [id number] [place] [address] May, [place] [id number] [place] [address] May, History of asthma Z87.09 [facility] [facility] [address], [place] [address] March, Other complications following infusion, transfusion and therapeutic injection, initial encounter T80.89XA ; Pain, unspecified R52 and Muscle strain T14.8XXA [place] [address], [place] [address] Feb, 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 [place] [facility] [address], [place] [address] Feb, [place] [facility] [id number] [address] Feb, 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 [place] [facility] [address], [place] [address] Feb, Hospital discharge follow-up Z09 and 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 Booth Reason:enlarged uterus & rt ovary VITAL SIGNS Height 66 in 2018-07-26 Weight 177.8 lbs 2018-07-26 Temperature 97.9 degrees Fahrenheit 2018-07-26 Heart Rate 75 bpm 2018-07-26 Respiratory Rate 18 2018-07-26 BMI 28.69 kg/m2 2018-07-26 Blood pressure systolic 108 mmHg 2018-07-26 Blood pressure diastolic 60 mmHg 2018-07-26 MEDICATIONS Medication Instructions Dosage Frequency Start Date End Date Duration Status Sumatriptan Succinate 50 mg Orally Twice a day maximum Take 1 tablet when feel migraine beginning. Wait 2 hours to take second tablet if headache persists. Jul, 30 days Active Albuterol Sulfate HFA 108 (90 Base) MCG/ACT Inhalation every 6 hrs 2 puffs as needed 6h 30 days Active Ibuprofen 800 MG Orally Three times a day 1 tablet with food or milk as needed 8h Active Nexplanon 68 MG as directed Active RESULTS No Results PROCEDURES No Known procedures INSTRUCTIONS MEDICATIONS ADMINISTERED No Known Medications MEDICAL (GENERAL) HISTORY Type Description Date Medical History Extrapyramidal and movement disorder - after beginning Zoloft 02/2018 Surgical History C-Sections x2 2007, 2011 Surgical History Cholecystectomy 06/29/2018 Hospitalization History Childbirth
--- OUTSIDE RECORDS SUMMARY | 2018-09-15 15:49 | XMS REPORT ---
Author Author AMELIA ANTONIO Organization [facility] Address [address] [place] [address] Care Team Providers Care Hypnotherapist Name Role Phone AMELIA ANTONIO Unavailable PROBLEMS Type Condition ICD9-CM Code [id number] Code Onset Dates Condition Status SNOMED Code Problem Gallbladder polyp K82.4 Active 865847273 Problem Muscle strain T14.8XXA Active 09235453 Problem History of asthma Z87.09 Active 681680786 Problem Pain, unspecified R52 Active 09251815 Problem Current mild episode of major depressive disorder without prior episode F32.0 Active 98310823 ALLERGIES Substance Reaction Event Type Date Status Zoloft extrapyramidal symptoms Drug Allergy May, Active Propranolol HCl vomiting Drug Allergy May, Active Penicillin V Potassium hives Drug Allergy May, Active Morphine Sulfate Metal Poisoning Drug Allergy May, Active ENCOUNTERS Encounter Location Date Diagnosis [facility] [id number] [place] [address] 29277- 7310 Jul, [facility] [id number] [place] [address] 74491- 8151 Jun, [facility] [id number] [place] [address] 43427- 0188 Jun, [facility] [id number] [place] [address] 46000- 3495 May, [facility] [id number] [place] [address] 13517 -6284 May, Gallbladder polyp K82.4 and Right upper quadrant abdominal pain R10.11 [facility] [address] [place] [address] 10177 -9037 May, Right lower quadrant abdominal pain R10.31 [facility] [id number], [place] [address] May, [place] [id number] [place] [address] 59358- 8539 May, [facility] [id number] [place] [address] 66981 -9356 May, [place] [id number] [place] [address] 50501- 5207 May, History of asthma Z87.09 [place] [id number] [place] [address] 90202- 6808 March, Other complications following infusion, transfusion and therapeutic injection, initial encounter T80.89XA ; Pain, unspecified R52 and Muscle strain T14.8XXA [place] [id number] [place] [address] 71422- 1572 Feb, 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 [place] [id number] [place] [address] 99878- 8089 Feb, [place] [id number] [place] [address] 24532- 5453 Feb, 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 reports it is a constant pain. hurst worse with movement. denies dysuria, denies pain with intercourse, last BM was last noc et normal for her, last menstural period-doesnt have them has an implant for control. [email or web address] PLAN OF CARE Activity Details Follow Up w/ PCP pending US results Reason:RLQ abdominal pain VITAL SIGNS Height 66 in 2018-05-26 Weight 171.8 lbs 2018-05-26 Temperature 98.0 degrees Fahrenheit 2018-05-26 Heart Rate 80 bpm 2018-05-26 Respiratory Rate 2018-05-26 BMI 27.73 kg/m2 2018-05-26 Blood pressure systolic 122 mmHg 2018-05-26 Blood pressure diastolic 72 mmHg 2018-05-26 MEDICATIONS Medication Instructions Dosage Frequency Start Date End Date Duration Status Ibuprofen 800 MG Orally Three times a day 1 tablet with food or milk as needed 8h Active Albuterol Sulfate HFA 108 (90 Base) MCG/ACT Inhalation every 6 hrs 2 puffs as needed 6h 30 days Active RESULTS Name Result Date Reference Range Ultrasound : Abdominal, COMPLETE Ultrasound : Pelvic, COMPLETE (REFLEX [id number]) 2018-05-26 PROCEDURES No Known procedures INSTRUCTIONS MEDICATIONS ADMINISTERED No Known Medications MEDICAL (GENERAL) HISTORY Type Description Date Medical History Extrapyramidal and movement disorder Medical History Extrapyramidal and movement disorder Surgical History C-Sections x2 2007, 2011 Hospitalization History Childbirth
--- OUTSIDE RECORDS SUMMARY | 2018-09-15 15:49 | XMS REPORT ---
Author Author AMELIA ANTONIO Organization [facility] Address [address] [place] [address] Care Team Providers Care Smoke Inspector Name Role Phone AMELIA ANTONIO Unavailable PROBLEMS Type Condition ICD9-CM Code ADW22-BF Code Onset Dates Condition Status SNOMED Code Problem History of asthma Z87.09 Active 315220531 Problem Migraine without aura and without status migrainosus, not intractable G43.009 Active 054269934 Problem History of cholecystectomy Z90.49 Active 762264588 Problem Muscle strain T14.8XXA Active 00388571 Problem Current mild episode of major depressive disorder without prior episode F32.0 Active 00625678 Problem Gallbladder polyp K82.4 Active 466042010 Problem Pain, unspecified R52 Active 65764169 ALLERGIES No Information ENCOUNTERS Encounter Location Date Diagnosis [facility] [address] [address]- [address]309 Aug, [facility] [address] 21461- 2501 Jul, Migraine without aura and without status migrainosus, not intractable G43.009 ; Enlarged uterus N85.2 and Ovarian enlargement, right N83.8 [facility] [id number] [place] [address] 00933- 9933 Jun, [facility] [id number] [place] [address] 64409- 6799 Jun, [facility] [address] 93691- 7697 May, [facility] [id number] [place] [address] 28767 -8422 May, Gallbladder polyp K82.4 and Right upper quadrant abdominal pain R10.11 [facility] [address] [place] [address] 98977 -6610 May, Right lower quadrant abdominal pain R10.31 [place] [id number] [place] [address] 29114- 0340 May, [place] [id number] [place] [address] 34575- 3084 May, [facility] [id number] [place] [address] 19399 -4700 May, [place] [id number] [place] [address] 69059- 4195 May, History of asthma Z87.09 [place] [id number] [place] [address] 93537- 2600 March, Other complications following infusion, transfusion and therapeutic injection, initial encounter T80.89XA ; Pain, unspecified R52 and Muscle strain T14.8XXA [place] [id number] [place] [address] 85309- 5842 Feb, 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 [place] [id number] [place] [address] 47893- 9136 Feb, [place] [id number] [place] [address] 10189- 9503 Feb, 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
--- OUTSIDE RECORDS SUMMARY | 2018-09-15 15:49 | XMS REPORT ---
Author Author AMELIA ANTONIO Organization [facility] Address [address] [place] [address] Care Team Providers Care Director Of Marketing Communications Name Role Phone AMELIA ANTONIO Unavailable PROBLEMS Type Condition ICD9-CM Code UUS60-FA Code Onset Dates Condition Status SNOMED Code Problem Gallbladder polyp K82.4 Active 122452257 Problem Muscle strain T14.8XXA Active 29550790 Problem History of asthma Z87.09 Active 993080496 Problem Pain, unspecified R52 Active 97453658 Problem Current mild episode of major depressive disorder without prior episode F32.0 Active 37119695 ALLERGIES No Information ENCOUNTERS Encounter Location Date Diagnosis [facility] [address] 70952- 2836 Jun, [facility] [address] 84148- 4235 Jun, [facility] [address] 17863- 5232 May, [facility] [id number] [place] [address] 94085 -7410 May, Gallbladder polyp K82.4 and Right upper quadrant abdominal pain R10.11 [facility] [id number] [place] [address] 92613 -4530 May, Right lower quadrant abdominal pain R10.31 [facility] [address] 51803- 0949 17 May, 2018 [facility] [address] 55089- 8989 May, [facility] [address] 12153 -9892 May, [place] [address] [place] [address] 56993- 9082 May, History of asthma Z87.09 [place] [id number] [place] [address] 57428- 6976 March, Other complications following infusion, transfusion and therapeutic injection, initial encounter T80.89XA ; Pain, unspecified R52 and Muscle strain T14.8XXA [place] [id number] [place] [address] 64454- 6210 Feb, 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 [place] [address] 91014- 9430 Feb, [place] [address] 13053- 6121 Feb, 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 [place] [id number] [place] [address] 46863- 7201 Feb, Hospital discharge follow-up Z09 and 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 [place] [id number] [place] [address] 26810- 1173 Feb, [place] [id number] [place] [address] 22676- 7463 Feb, Encounter to establish care Z76.89 ; Reactive depression F32.9 and History of asthma Z87.09 IMMUNIZATIONS No Known Immunizations SOCIAL HISTORY Never Assessed REASON FOR VISIT PLAN OF CARE VITAL SIGNS MEDICATIONS Unknown Medications RESULTS No Results PROCEDURES No Known procedures INSTRUCTIONS MEDICATIONS ADMINISTERED No Known Medications MEDICAL (GENERAL) HISTORY Type Description Date Medical History Extrapyramidal and movement disorder Medical History Extrapyramidal and movement disorder Surgical History C-Sections x2 2007, 2011 Hospitalization History Childbirth
--- OUTSIDE RECORDS SUMMARY | 2018-09-15 15:49 | XMS REPORT ---
Author Author AMELIA ANTONIO Organization [facility] Address [address] [place] [address] Care Team Providers Care Statistics Professor Name Role Phone AMELIA ANTONIO Unavailable PROBLEMS Type Condition ICD9-CM Code SNK36-BJ Code Onset Dates Condition Status SNOMED Code Problem Gallbladder polyp K82.4 Active 642464834 Problem Muscle strain T14.8XXA Active 52687360 Problem History of asthma Z87.09 Active 664519306 Problem Pain, unspecified R52 Active 41160249 Problem Current mild episode of major depressive disorder without prior episode F32.0 Active 84336605 ALLERGIES Substance Reaction Event Type Date Status Zoloft extrapyramidal symptoms Drug Allergy May, Active Propranolol HCl vomiting Drug Allergy May, Active Penicillin V Potassium hives Drug Allergy May, Active Morphine Sulfate Metal Poisoning Drug Allergy May, Active ENCOUNTERS Encounter Location Date Diagnosis [facility] [id number] [place] [address] 98002- 3566 Jul, [facility] [id number] [place] [address] 75100- 6826 Jun, [facility] [id number] [place] [address] 23868- 1630 Jun, [facility] [id number] [place] [address] 76212- 0793 May, [facility] [id number] [place] [address] 74174 -6641 May, Gallbladder polyp K82.4 and Right upper quadrant abdominal pain R10.11 [facility] [address] [place] [address] 92790 -7450 May, Right lower quadrant abdominal pain R10.31 [facility] [id number] [address]- 2191 May, [facility] [address] [place] [address] 09096- 4116 May, [facility] [address] [place] [address] 84972 -7232 May, [facility] [id number] [place] [address] 51504- 5487 May, History of asthma Z87.09 [place] [address] [place] [address] 92447- 0520 March, Other complications following infusion, transfusion and therapeutic injection, initial encounter T80.89XA ; Pain, unspecified R52 and Muscle strain T14.8XXA [place] [id number] [place] [address] 79904- 9326 Feb, 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 [place] [id number] [place] [address] 02374- 3362 Feb, [place] [id number] [place] [address] 83473- 6670 Feb, 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 [place] [address] [place] [address] 07746- 7961 Feb, Hospital discharge follow-up Z09 and 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 Cedillo Reason:gallbladder polyp removal VITAL SIGNS Height 66 in 2018-05-31 Weight 173.6 lbs 2018-05-31 Temperature 98.3 degrees Fahrenheit 2018-05-31 Heart Rate 72 bpm 2018-05-31 Respiratory Rate 20 2018-05-31 BMI 28.02 kg/m2 2018-05-31 Blood pressure systolic 112 mmHg 2018-05-31 Blood pressure diastolic 74 mmHg 2018-05-31 MEDICATIONS Medication Instructions Dosage Frequency Start Date End Date Duration Status Ibuprofen 800 MG Orally Three times a day 1 tablet with food or milk as needed 8h Active Bentyl 10 mg Orally Four times a day 2 capsules 6h May, May, 03 days Active Albuterol Sulfate HFA 108 (90 Base) MCG/ACT Inhalation every 6 hrs 2 puffs as needed 6h 30 days Active RESULTS No Results PROCEDURES No Known procedures INSTRUCTIONS MEDICATIONS ADMINISTERED No Known Medications MEDICAL (GENERAL) HISTORY Type Description Date Medical History Extrapyramidal and movement disorder Medical History Extrapyramidal and movement disorder Surgical History C-Sections x2 2007, 2011 Hospitalization History Childbirth
--- OUTSIDE RECORDS SUMMARY | 2018-09-15 15:49 | XMS REPORT ---
Author Author AMELIA ANTONIO Organization [facility] Address [address] [place] [address] Care Team Providers Care Cardiology Associate Name Role Phone AMELIA ANTONIO Unavailable PROBLEMS Type Condition ICD9-CM Code RFL06-TV Code Onset Dates Condition Status SNOMED Code Problem History of asthma Z87.09 Active 851223251 Problem Migraine without aura and without status migrainosus, not intractable G43.009 Active 948111667 Problem History of cholecystectomy Z90.49 Active 421799904 Problem Muscle strain T14.8XXA Active 98860876 Problem Current mild episode of major depressive disorder without prior episode F32.0 Active 28337489 Problem Gallbladder polyp K82.4 Active 930180724 Problem Pain, unspecified R52 Active 67887055 ALLERGIES No Information ENCOUNTERS Encounter Location Date Diagnosis [place] [address] [address]91 Aug, Enlarged uterus N85.2 [place] [address] 65385- 0418 Aug, [place] [id number] [place] [address] 76407- 6166 Aug, Encounter for immunization Z23 [place] [address] 45122- 9257 Jul, Migraine without aura and without status migrainosus, not intractable G43.009 ; Enlarged uterus N85.2 and Ovarian enlargement, right N83.8 [place] [address] 63075- 7007 Jun, [place] [id number] [place] [address] 74642- 2938 Jun, [place] [id number] [address] 2824 May, [facility] [id number] [place] [address] 98927 -1018 May, Gallbladder polyp K82.4 and Right upper quadrant abdominal pain R10.11 [facility] [id number] [place] [address] 29902 -7666 May, Right lower quadrant abdominal pain R10.31 [place] [id number] [place] [address] 31166- 5100 May, [place] [id number] [place] [address] 51197- 3200 May, [facility] [id number] [place] [address] 91015 -6142 May, [place] [id number] [place] [address] 01000- 3025 May, History of asthma Z87.09 [place] [address] [place] [address] 16147- 9063 March, Other complications following infusion, transfusion and therapeutic injection, initial encounter T80.89XA ; Pain, unspecified R52 and Muscle strain T14.8XXA [place] [address] [place] [address] 29033- 9388 Feb, 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 [place] [address] [place] [address] 88677- 8424 Feb, [place] [id number] [place] [address] 20005- 7906 Feb, 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 [place] [id number] [place] [address] 51776- 6752 Feb, Hospital discharge follow-up Z09 and 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 [place] [id number] [place] [address] 73894- 3436 Feb, [facility] [address] [facility] [id number] [place] [address] Feb, Encounter to establish care Z76.89 ; Reactive depression F32.9 and History of asthma Z87.09 IMMUNIZATIONS No Known Immunizations SOCIAL HISTORY Never Assessed REASON FOR VISIT Eye Exam PLAN OF CARE VITAL SIGNS MEDICATIONS Unknown Medications RESULTS No Results PROCEDURES No Known procedures INSTRUCTIONS MEDICATIONS ADMINISTERED No Known Medications MEDICAL (GENERAL) HISTORY Type Description Date Medical History Extrapyramidal and movement disorder - after beginning Zoloft 02/2018 Surgical History C-Sections x2 2007, 2011 Surgical History Cholecystectomy 06/29/2018 Hospitalization History Childbirth
--- OUTSIDE RECORDS SUMMARY | 2018-09-15 15:50 | XMS REPORT ---
Author Author AMELIA ANTONIO Organization [facility] Address [address] [place] [address] Care Team Providers Care Leather Stamper Name Role Phone AMELIA ANTONIO Unavailable PROBLEMS Type Condition ICD9-CM Code XJU99-OY Code Onset Dates Condition Status SNOMED Code Problem Gallbladder polyp K82.4 Active 699155681 Problem Muscle strain T14.8XXA Active 11319349 Problem History of asthma Z87.09 Active 797444679 Problem Pain, unspecified R52 Active 18819494 Problem Current mild episode of major depressive disorder without prior episode F32.0 Active 43544257 ALLERGIES No Information ENCOUNTERS Encounter Location Date Diagnosis [facility] [address] [address]- [address]88 Jun, [facility] [address] 23835- 3411 Jun, [facility] [address] 90100- 4786 May, [facility] [id number] [place] [address] 83980 -2380 May, Gallbladder polyp K82.4 and Right upper quadrant abdominal pain R10.11 [facility] [id number] [place] [address] 91160 -1107 May, Right lower quadrant abdominal pain R10.31 [facility] [address] [address]56- 7577 17 May, 2018 [facility] [address] 54685- 1788 May, [facility] [address] 18805 -4581 May, [place] [address] [place] [address] 38014- 9905 May, History of asthma Z87.09 [place] [id number] [place] [address] 84319- 3467 March, Other complications following infusion, transfusion and therapeutic injection, initial encounter T80.89XA ; Pain, unspecified R52 and Muscle strain T14.8XXA [place] [id number] [place] [address] 43646- 0699 Feb, 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
--- OUTSIDE RECORDS SUMMARY | 2018-09-15 15:50 | XMS REPORT ---
Author Author AMELIA ANTONIO Organization [facility] Address [address] [place] [address] Care Team Providers Care Birth Attendant Name Role Phone AMELIA ANTONIO Unavailable PROBLEMS Type Condition ICD9-CM Code IPG02-OZ Code Onset Dates Condition Status SNOMED Code Problem Gallbladder polyp K82.4 Active 167692976 Problem Muscle strain T14.8XXA Active 70277998 Problem History of asthma Z87.09 Active 406206396 Problem Pain, unspecified R52 Active 65293970 Problem Current mild episode of major depressive disorder without prior episode F32.0 Active [id number] ALLERGIES No Information ENCOUNTERS Encounter Location Date Diagnosis [facility] [address] [phone] Jun, [facility] [address] [address] Jun, [facility] [address] [address] May, [facility] [id number] [place] [phone] May, Gallbladder polyp K82.4 and Right upper quadrant abdominal pain R10.11 [facility] [id number] [place] [phone] May, Right lower quadrant abdominal pain R10.31 [facility] [address] [address] 17 May, 2018 [facility] [address] [address] May, [facility] [address] [phone] May, [facility] [id number] [place] [address] 10 May, 2018 History of asthma Z87.09 [facility] [id number] [place] [phone] March, Other complications following infusion, transfusion and therapeutic injection, initial encounter T80.89XA ; Pain, unspecified R52 and Muscle strain T14.8XXA [facility] [id number] [place] [address] Feb, 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 [facility] [address] [address] Feb, [facility] [address] [address] Feb, 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 [facility] [id number] [place] [phone] Feb, Hospital discharge follow-up Z09 and 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
--- NOTE | 2018-09-15 16:18 | ED GU-Female ---
General Chief Complaint: Abdominal/GI Problems Stated Complaint: ABDOMEN PAIN Nursing Triage Note: pt presents to ed with complaints of lower pelvic pain and abdominal pain below umbilicus. pt reports pain x 2 days but worse today. pt deniess n/v/d. pt denies any vaginal discharge or urinary s/s. Nursing Sepsis Screen: No Definite Risk Source: patient Exam Limitations: no limitations History of Present Illness Date Seen by Provider: Sep 15, 2018 Time Seen by Provider: 16:18 Initial Comments 33 yo female patient presents to the ED with c/o lower abdominal pain x 2 days, but worse today. denies n/v/d, dysuria, vaginal dsch, vaginal bleeding, or frequency. She has "a bar in my arm so I don't have periods." Nexplanon placed approx 6 mo ago. She is scheduled to see Dr. Whitley in 2 wks for a pap smear. Timing/Duration: other (2 day onset. waxes and wanes.) Severity/Quality: aching, cramping Location: suprapubic Radiation: none Activities at Onset: none Prior Genitourinary Problems: none Allergies and Home Medications Allergies Coded Allergies: Penicillins (Verified Allergy, Mild, HIVES, 06/26/18) morphine (Verified Allergy, Mild, RED LINES, 06/26/18) sertraline (Unverified Allergy, Mild, STUTTERING, 06/26/18) Home Medications Albuterol Sulfate 1 Puff Puff, 2 PUFF IH Q4H, (Reported) 1 PUFF = 90 MCG Hydrocodone Bit/Acetaminophen 1 Tab Tab, 1 TAB PO Q6H PRN Prescribed by: GIANLUCA PARRA on 06/29/18 1157 Patient Home Medication List Home Medication List Reviewed: Yes Review of Systems Review of Systems Constitutional: No chills, No fever, No malaise EENTM: no symptoms reported Respiratory: No cough, No short of breath Cardiovascular: No chest pain, No palpitations Gastrointestinal: see HPI, abdominal pain; No diarrhea, No hematemesis, No loss of appetite, No melena, No nausea, No vomiting Genitourinary: see HPI; denies burning, denies discharge, denies dysuria, denies frequency, denies flank pain, denies hematuria; pain : No Musculoskeletal: no symptoms reported Skin: no symptoms reported Psychiatric/Neurological: No Symptoms Reported All Other Systemes Reviewed Negative Unless Noted: Yes (Negative excepted noted.) Past Mwxlktt-Qqxadp-Tpsbcz Hx Past Med/Social Hx: Reviewed Nursing Past Med/Soc Hx Patient Social History Alcohol Use: Denies Use Recreational Drug Use: No Smoking Status: Former Smoker Type Used: Cigarettes Former Smoker, Quit: Jun 26, 2007 Recent Foreign Travel: No Contact w/Someone Who Travel: No Recent Infectious Disease Expo: No Recent Hopitalizations: No Physical Abuse: No Sexual Abuse: No Fear: No Immunizations Up To Date Tetanus Booster (TDap): Less than 5yrs Date of Influenza Vaccine: Aug 22, 2017 Seasonal Allergies Seasonal Allergies: No Past Medical History Surgeries: Yes (CS X2) Section, Gallbladder Respiratory: Yes Asthma Cardiac: No Neurological: Yes Headaches /Migraines : No Hx : 7 Hx Para: 2 Hx Total # of Abortions (Sp): 5 Reproductive Disorders: No Female Reproductive Disorders: Ovarian Cyst Sexually Transmitted Disease: No HIV/AIDS: No Genitourinary: No Gastrointestinal: Yes Gall Bladder Disease Musculoskeletal: No Endocrine: Yes (sarcoidosis) HEENT: No Loss of Vision: Bilateral Cancer: No Psychosocial: No Integumentary: No Blood Disorders: No Adverse Reaction/Blood Tranf: No (N/A) Family Medical History Reviewed Nursing Family Hx No Pertinent Family Hx Physical Exam Vital Signs Vital Signs - First Documented 09/15/18 15:57 Temp 98.1 Pulse 85 Resp 20 B/P (MAP) 133/83 (100) Pulse Ox 96 Capillary Refill : Less Than 3 Seconds Height, Weight, BMI Height: 5'5.00" Weight: 171lbs. 0.0oz. 77.542264mr; 26.5 BMI Method:Stated General Appearance: WD/WN, no apparent distress HEENT: PERRL/EOMI, pharynx normal Neck: supple, normal inspection Cardiovascular: normal peripheral pulses, regular rate, rhythm, no edema, no murmur Respiratory: lungs clear, normal breath sounds, no respiratory distress, no accessory muscle use Gastrointestinal: normal bowel sounds, soft, no organomegaly; No distended, No guarding, No rebound; tenderness (suprapubic and BLQ TTP); No mass Back: normal inspection, no CVA tenderness Extremities: no pedal edema, normal capillary refill Neurologic/Psychiatric: alert, normal mood/affect, oriented x 3 Skin: normal color, warm/dry Progress/Results/Core Measures Suspected Sepsis Recent Fever Within 48 Hours: No Infection Criteria Present: None New/Unexplained Altered Menta: No Sepsis Screen: No Definite Risk SIRS Temperature:98.1 Pulse: 85 Respiratory Rate: 20 Laboratory Tests 09/15/18 17:16: White Blood Count 6.3 Blood Pressure 133 /83 Mean: 100 Laboratory Tests 09/15/18 17:16: Creatinine 0.72, Platelet Count 229, Total Bilirubin 0.4 Results/Orders Lab Results Laboratory Tests Test 09/15/18 16:30 09/15/18 17:16 Range/Units Urine Color YELLOW Urine Clarity SLIGHTLY CLOUDY Urine pH 8 5-9 Urine Specific [place] 1.010 L 1.016-1.022 Urine Protein NEGATIVE NEGATIVE Urine Glucose (UA) NEGATIVE NEGATIVE Urine Ketones NEGATIVE NEGATIVE Urine Nitrite NEGATIVE NEGATIVE Urine Bilirubin NEGATIVE NEGATIVE Urine Urobilinogen NORMAL NORMAL MG/DL Urine Leukocyte Esterase 1+ H NEGATIVE Urine RBC (Auto) NEGATIVE NEGATIVE Urine RBC NONE /HPF Urine WBC 0-2 /HPF Urine Squamous Epithelial Cells 10-25 H /HPF Urine Crystals NONE /LPF Urine Bacteria FEW H /HPF Urine Casts NONE /LPF Urine Mucus NEGATIVE /LPF Urine Culture Indicated NO White Blood Count 6.3 4.3-11.0 10^3/uL Red Blood Count 4.94 4.35-5.85 10^6/uL Hemoglobin 15.4 11.5-16.0 G/DL Hematocrit 44 35-52 % Mean Corpuscular Volume 90 80-99 FL Mean Corpuscular Hemoglobin 31 25-34 PG Mean Corpuscular Hemoglobin Concent 35 32-36 G/DL Red Cell Distribution Width 12.0 10.0-14.5 % Platelet Count 229 130-400 10^3/uL Mean Platelet Volume 11.5 H 7.4-10.4 FL Neutrophils (%) (Auto) 49 42-75 % Lymphocytes (%) (Auto) 40 12-44 % Monocytes (%) (Auto) 8 0-12 % Eosinophils (%) (Auto) 2 0-10 % Basophils (%) (Auto) 1 0-10 % Neutrophils # (Auto) 3.1 1.8-7.8 X 10^3 Lymphocytes # (Auto) 2.5 1.0-4.0 X 10^3 Monocytes # (Auto) 0.5 0.0-1.0 X 10^3 Eosinophils # (Auto) 0.1 0.0-0.3 10^3/uL Basophils # (Auto) 0.0 0.0-0.1 10^3/uL Sodium Level 138 135-145 MMOL/L Potassium Level 4.1 3.6-5.0 MMOL/L Chloride Level 109 H 98-107 MMOL/L Carbon Dioxide Level 21 21-32 MMOL/L Anion Gap 8 5-14 MMOL/L Blood Urea Nitrogen 8 7-18 MG/DL Creatinine 0.72 0.60-1.30 MG/DL Estimat Glomerular Filtration Rate > 60 BUN/Creatinine Ratio 11 Glucose Level 98 70-105 MG/DL Calcium Level 9.5 8.5-10.1 MG/DL Corrected Calcium 9.3 8.5-10.1 MG/DL Total Bilirubin 0.4 0.1-1.0 MG/DL Aspartate Amino Transf (AST/SGOT) 17 5-34 U/L Alanine Aminotransferase (ALT/SGPT) 13 0-55 U/L Alkaline Phosphatase 49 40-136 U/L C-Reactive Protein High Sensitivity 0.08 0.00-0.50 MG/DL Total Protein 6.9 6.4-8.2 GM/DL Albumin 4.2 3.2-4.5 GM/DL Lipase 27 8-78 U/L My Orders Orders - SERENA MARQUEZ Cbc With Automated Diff (09/15/18 16:40) Comprehensive Metabolic Panel (09/15/18 16:40) Hs C Reactive Protein (09/15/18 16:40) Lipase (09/15/18 16:40) Ua Culture If Indicated (09/15/18 16:40) Saline Lock/Iv-Start (09/15/18 16:40) Urine Bedside (09/15/18 16:40) Ct Abdomen/Pelvis W (09/15/18 16:40) Ns Iv 1000 Ml (Sodium Chloride 0.9%) (09/15/18 16:40) Ketorolac Injection (Toradol Injection) (09/15/18 16:40) Iohexol Injection (Omnipaque 350 Mg/Ml 1 (09/15/18 17:00) Contrast Received (Contrast Received) (09/15/18 17:00) Sodium Chloride Flush (Catheter Flush Sy (09/15/18 17:00) Ns (Ivpb) (Sodium Chloride 0.9%) (09/15/18 17:00) Medications Given in ED Current Medications Medications Dose Ordered Sig/Klever Route Start Time Stop Time Status Last Admin Dose Admin Iohexol 100 ml ONCE ONCE IV 09/15/18 17:00 09/15/18 17:01 DC 09/15/18 17:33 100 ML Sodium Chloride 250 ml ONCE ONCE IV 09/15/18 17:00 09/15/18 17:01 DC 09/15/18 17:33 80 ML Sodium Chloride 1,000 ml @ 0 mls/hr Q0M ONCE IV 09/15/18 16:40 09/15/18 16:44 DC 09/15/18 17:21 0 MLS/HR Vital Signs/I&O 09/15/18 09/15/18 15:57 18:58 Temp 98.1 Pulse 85 74 Resp 20 18 B/P (MAP) 133/83 (100) 118/76 (90) Pulse Ox 96 98 09/16/18 00:00 Intake Total 1000 ml Balance 1000 ml Capillary Refill : Less Than 3 Seconds Blood Pressure Mean: 100 Diagnostic Imaging Diagonstic Imaging: Xray Plain Films/CT/US/NM/MRI: chest Comments CT ABDOMEN/PELVIS W INDICATION: Sharp pains all over the abdomen since yesterday with no nausea, vomiting or diarrhea. Previous history of a cholecystectomy. COMPARISON STUDY: CT scan from 06/09/2018. FINDINGS: The lung bases are clear. The gallbladder is absent. No ductal dilatation is present. Liver, spleen, pancreas, adrenal glands and kidneys appear normal. There is a normal appearance of the appendix. The cervix appears a little prominent and has some increased enhancement. This could be due to timing of the bolus. Possible inflammation of the cervix. Recommend clinical correlation. There is no ascites, free air or abnormal adenopathy. No hernias are present. The osseous and vascular structures are normal. IMPRESSION: Cervix appears a little prominent with some increased enhancement which could be due to vascular timing. Recommend clinical correlation for inflammation of the cervix. Dictated on workstation # [id number] Reviewed: Reviewed by Me (radiol) Departure Communication (Admissions) Laboratory findings and diagnostic study findings discussed with the patient. I discussed recommendations for the pelvic exam in the emergency department today. Patient states she is supposed to have a Pap smear done by Dr. Whitley in approximately 2 weeks. Patient refuses pelvic exam on this visit. I discussed all risks, benefits, possible complications associated with not performing the pelvic exam in the emergency department. Patient verbalize understanding and continues to refuse pelvic exam in the emergency department. Patient is to call Dr. Whitley's office Tuesday to see about scheduling an earlier pelvic exam/Pap smear. Patient is to return immediately for worsened symptoms or any other concerns. Impression Primary Impression: Abdominal pain, lower Disposition: 01 HOME, SELF-CARE Condition: Improved Departure-Patient Inst. Decision time for Depature: 18:25 Ref[facility]: [facility] [place] Primary Care Physician AMELIA ANTONIO APRN (Family) Primary Care Physician VALENTINA WHITLEY DO Patient Instructions: Acute Pelvic Pain (DC) Add. Discharge Instructions: All discharge instructions reviewed with patient and/or family. Voiced understanding. Tylenol Extra Strength tvyc-bya-sniuvla as directed for pain. Ibuprofen 800 mg by mouth every 8 hours as needed for pain. Follow-up with Dr. Whitley next week for recheck and pelvic exam/Pap smear. Call Tuesday for appointment time. Return in the emergency department for worsened pain, fever, abdominal swelling, vomiting, diarrhea, or any other concerns. SERENA MARQUEZ Sep 15, 2018 16:18
[2018-09-15] MEDS ORDERED: KETOROLAC 30 MG/ML VIAL IVP STA (16:40)
[2018-09-15] MEDS ORDERED: NS IV 1000 ML 1,000 ML IV ONE (16:40)
[2018-09-15 16:48] LABS: BILIRUBIN,URINE NEGATIVE (NEGATIVE); CLARITY,URINE SLIGHTLY CLOUDY; COLOR,URINE YELLOW; GLUCOSE, URINE (UA) NEGATIVE (NEGATIVE); KETONES,URINE NEGATIVE (NEGATIVE); LEUKOCYTE ESTERASE ,URINE 1+ (NEGATIVE); NITRITE,URINE NEGATIVE (NEGATIVE); PH,URINE 8 (5-9); PROTEIN,URINE NEGATIVE (NEGATIVE); UROBILINOGEN,URINE NORMAL (NORMAL)
[2018-09-15 16:54] LABS: BACTERIA,URINE FEW /HPF; WBC,URINE 0-2 /HPF
[2018-09-15] MEDS ORDERED: NS 250 ML (IVPB) BAG IV ONE (17:00)
[2018-09-15] MEDS ORDERED: IOHEXOL 350 MG/ML 100 ML (OMNIPAQUE 350) VIAL IV ONE (17:00)
[2018-09-15] MEDS ORDERED: CATHETER FLUSH 10 ML SYR IV PRN (17:00)
[2018-09-15] MEDS ORDERED: RECEIVED CONTRAST (Hold Metformin) IV SCH (17:00)
[2018-09-15 17:24] LABS: BASOPHILS % (AUTO) 1 % (0-10); EOSINOPHILS # (AUTO) 0.1 10^3/uL (0.0-0.3); EOSINOPHILS % (AUTO) 2 % (0-10); HEMATOCRIT 44 % (35-52); HEMOGLOBIN 15.4 G/DL (11.5-16.0); LYMPHOCYTES # (AUTO) 2.5 X 10^3 (1.0-4.0); LYMPHOCYTES % (AUTO) 40 % (12-44); MEAN CORPUSCULAR HEMOGLOBIN 31 PG (25-34); MEAN CORPUSCULAR HGB CONC 35 G/DL (32-36); MEAN CORPUSCULAR VOLUME 90 FL (80-99); MEAN PLATELET VOLUME 11.5 FL (7.4-10.4); MONOCYTES # (AUTO) 0.5 X 10^3 (0.0-1.0); MONOCYTES % (AUTO) 8 % (0-12); NEUTROPHILS # (AUTO) 3.1 X 10^3 (1.8-7.8); NEUTROPHILS % (AUTO) 49 % (42-75); PLATELET COUNT 229 10^3/uL (130-400); RED BLOOD COUNT 4.94 10^6/uL (4.35-5.85); WHITE BLOOD COUNT 6.3 10^3/uL (4.3-11.0)
[2018-09-15 17:41] LABS: ALANINE AMINOTRANSFERASE 13 U/L (0-55); ALBUMIN 4.2 GM/DL (3.2-4.5); ALKALINE PHOSPHATASE 49 U/L (40-136); BILIRUBIN,TOTAL 0.4 MG/DL (0.1-1.0); BUN/CREATININE RATIO 11; CALCIUM 9.5 MG/DL (8.5-10.1); CARBON DIOXIDE 21 MMOL/L (21-32); CHLORIDE 109 MMOL/L (98-107); CREATININE SERUM 0.72 MG/DL (0.60-1.30); GFR ESTIMATED > 60; GLUCOSE 98 MG/DL (70-105); LIPASE 27 U/L (8-78); POTASSIUM 4.1 MMOL/L (3.6-5.0); SODIUM 138 MMOL/L (135-145); TOTAL PROTEIN 6.9 GM/DL (6.4-8.2)
--- NOTE | 2018-09-15 17:50 | Diagnostic Imaging Report ---
INDICATION: Sharp pains all over the abdomen since yesterday with no nausea, vomiting or diarrhea. Previous history of a cholecystectomy. COMPARISON STUDY: CT scan from 06/09/2018. FINDINGS: The lung bases are clear. The gallbladder is absent. No ductal dilatation is present. Liver, spleen, pancreas, adrenal glands and kidneys appear normal. There is a normal appearance of the appendix. The cervix appears a little prominent and has some increased enhancement. This could be due to timing of the bolus. Possible inflammation of the cervix. Recommend clinical correlation. There is no ascites, free air or abnormal adenopathy. No hernias are present. The osseous and vascular structures are normal. IMPRESSION: Cervix appears a little prominent with some increased enhancement which could be due to vascular timing. Recommend clinical correlation for inflammation of the cervix. Dictated by: Dictated on workstation # [id number]
[2018-09-15 18:58] VITALS: BP 118/76
== END 2018-09-15 19:00 | disposition home or self-care (01) ==
LOC: EDUNIT# 15:43 → ER 15:45
DX: R10.31 Right lower quadrant pain (principal); R10.32 Left lower quadrant pain; J45.909 Unspecified asthma, uncomplicated; G43.909 Migraine, unspecified, not intractable, without status migrainosus; Z87.448 Personal history of other diseases of urinary system; Z88.0 Allergy status to penicillin; Z88.5 Allergy status to narcotic agent; Z88.8 Allergy status to other drugs, medicaments and biological substances; Z79.51 Long term (current) use of inhaled steroids; Z87.891 Personal history of nicotine dependence; Z98.890 Other specified postprocedural states
CPT/HCPCS: 36415; 74177; 80053; 81000; 83690; 84703; 85025; 86141

== ENCOUNTER → 2018-10-11 | Outpatient (CLI) | payer MEDICAID ==
--- NOTE | 2018-10-11 12:30 | Diagnostic Imaging Report ---
PROCEDURE: US Non-ob pelvis comp/trans. TECHNIQUE: Multiple realtime grayscale images were obtained of the pelvis in various projections endovaginally. Transabdominal imaging was also performed. INDICATION: Pelvic pain. The uterus measures 7.5 x 4.5 x 3.9 cm. Endometrium is 4 mm in thickness. There is trace fluid within the endometrial canal. No myometrial mass is seen. The right ovary measures 2.7 x 3.7 x 3.1 cm and the left ovary measures 3.8 x 2.5 x 3.3 cm. Ovaries contain small follicles. There is blood flow present bilaterally. No adnexal mass or free fluid is seen. IMPRESSION: Unremarkable pelvic ultrasound. Dictated by: Dictated on workstation # [id number]
== END ==
LOC: RAD 10:19
PROVIDERS: ATTEND Obstetrics & Gynecology
DX: R10.2 Pelvic and perineal pain (principal)
CPT/HCPCS: 76830; 76856

== ENCOUNTER 2018-10-12 17:58 | Emergency (ER) | payer MEDICAID ==
[~2018-10-12] VITALS: Ht 172.7 cm; Wt 77.1 kg
[2018-10-12 19:30] LABS: BILIRUBIN,URINE NEGATIVE (NEGATIVE); CLARITY,URINE CLEAR; COLOR,URINE YELLOW; GLUCOSE, URINE (UA) NEGATIVE (NEGATIVE); KETONES,URINE NEGATIVE (NEGATIVE); LEUKOCYTE ESTERASE ,URINE 1+ (NEGATIVE); NITRITE,URINE NEGATIVE (NEGATIVE); PH,URINE 6 (5-9); PROTEIN,URINE NEGATIVE (NEGATIVE); UROBILINOGEN,URINE NORMAL (NORMAL)
--- NOTE | 2018-10-12 19:31 | ED Abdominal Pain ---
General Chief Complaint: Abdominal/GI Problems Stated Complaint: ABD PAIN Nursing Triage Note: Pt ambulated to rm 3 w/o difficulty. Pt reports lower abdominal pain that has persisted since July. Pt reports having an ultrasound at [facility] yesterday. Pt reports loose stool which is not normal for pt. Pt reports taking 800 mg ibuprophen and 500 mg tylenol daily. Sepsis Screen: No Definite Risk History of Present Illness Date Seen by Provider: Oct 12, 2018 Time Seen by Provider: 18:45 Initial Comments 33-year-old female presents for abdominal pain, right lower quadrant. In addition to the last 12 hours she's been having multiple episodes of diarrhea , she has not taken any antidiarrheal medication for this. She had an ultrasound done yesterday, she reports that Dr. Whitley's office called her with results and said there was a cyst on her right ovary. Patient last had ibuprofen at noon today. Timing/Duration: Intermittent Severity/Quality: Mild Location: RLQ, Epigastric Radiation: No Radiation Activities at Onset: None Associated Symptoms: Denies Symptoms Allergies and Home Medications Allergies Coded Allergies: Penicillins (Verified Allergy, Mild, HIVES, 06/26/18) morphine (Verified Allergy, Mild, RED LINES, 06/26/18) sertraline (Unverified Allergy, Mild, STUTTERING, 06/26/18) Home Medications Albuterol Sulfate 1 Puff Puff, 2 PUFF IH Q4H, (Reported) 1 PUFF = 90 MCG Hydrocodone Bit/Acetaminophen 1 Tab Tab, 1 TAB PO Q6H PRN Prescribed by: GIANLUCA PARRA on 06/29/18 1157 Patient Home Medication List Home Medication List Reviewed: Yes Review of Systems Review of Systems Constitutional: no symptoms reported, see HPI Gastrointestinal: See HPI, Abdominal Pain, Diarrhea All Other Systems Reviewed Negative Unless Noted: Yes Past Dhnafyl-Otrjpz-Kqxxjd Hx Past Med/Social Hx: Reviewed Nursing Past Med/Soc Hx Patient Social History Alcohol Use: Denies Use Recreational Drug Use: No Smoking Status: Former Smoker Type Used: Cigarettes Former Smoker, Quit: Jun 26, 2007 Recent Foreign Travel: No Contact w/Someone Who Travel: No Recent Infectious Disease Expo: No Recent Hopitalizations: No Immunizations Up To Date Tetanus Booster (TDap): Less than 5yrs Date of Influenza Vaccine: Aug 22, 2017 Seasonal Allergies Seasonal Allergies: No Past Medical History Surgeries: Yes (CS X2) Section, Gallbladder Respiratory: Yes Asthma Cardiac: No Neurological: Yes Headaches /Migraines : No (Pt denies; has implant) Reproductive Disorders: No Female Reproductive Disorders: Ovarian Cyst Sexually Transmitted Disease: No HIV/AIDS: No Genitourinary: No Gastrointestinal: Yes Gall Bladder Disease Musculoskeletal: No Endocrine: Yes (sarcoidosis) HEENT: No Loss of Vision: Bilateral Cancer: No Psychosocial: No Integumentary: No Blood Disorders: No Adverse Reaction/Blood Tranf: No (N/A) Family Medical History No Pertinent Family Hx Physical Exam Vital Signs Vital Signs - First Documented 10/12/18 18:03 Temp 98.6 Pulse 82 Resp 16 B/P (MAP) 120/73 (89) Pulse Ox 98 O2 Delivery Room Air Capillary Refill : Less Than 3 Seconds Height/Weight/BMI Height: 5'8.00" Weight: 170lbs. 0.0oz. 77.855142nk; 26.5 BMI Method:Stated General Appearance: WD/WN, no apparent distress Neck: non-tender, full range of motion, supple, normal inspection Respiratory: chest non-tender, lungs clear, normal breath sounds, no respiratory distress Cardiovascular: normal peripheral pulses Gastrointestinal: normal bowel sounds, soft; No distended, No guarding, No rebound; tenderness; No mass, No hepatomegaly, No spleenomegaly Back: normal inspection, no CVA tenderness, no vertebral tenderness Neurologic/Psychiatric: no motor/sensory deficits, alert, normal mood/affect, oriented x 3 Skin: normal color, warm/dry Progress/Results/Core Measures Results/Orders Lab Results Laboratory Tests Test 10/12/18 19:25 Range/Units Urine Color YELLOW Urine Clarity CLEAR Urine pH 6 5-9 Urine Specific [place] 1.020 1.016-1.022 Urine Protein NEGATIVE NEGATIVE Urine Glucose (UA) NEGATIVE NEGATIVE Urine Ketones NEGATIVE NEGATIVE Urine Nitrite NEGATIVE NEGATIVE Urine Bilirubin NEGATIVE NEGATIVE Urine Urobilinogen NORMAL NORMAL MG/DL Urine Leukocyte Esterase 1+ H NEGATIVE Urine RBC (Auto) NEGATIVE NEGATIVE Urine RBC NONE /HPF Urine WBC RARE /HPF Urine Squamous Epithelial Cells 5-10 /HPF Urine Crystals NONE /LPF Urine Bacteria FEW H /HPF Urine Casts NONE /LPF Urine Mucus NEGATIVE /LPF Urine Culture Indicated NO My Orders Orders - JIN GANT Tramadol Tablet (Ultram Tablet) (10/12/18 19:13) Ua Culture If Indicated (10/12/18 19:16) Rx-Tramadol Hcl (Rx-Ultram) (10/12/18 20:02) Rx-Diphenoxylate/Atropine (Rx-Lomotil 2. (10/12/18 20:02) Vital Signs/I&O 10/12/18 10/12/18 18:03 20:28 Temp 98.6 98.7 Pulse 82 78 Resp 16 15 B/P (MAP) 120/73 (89) 110/72 (85) Pulse Ox 98 99 O2 Delivery Room Air Room Air Blood Pressure Mean: 89 Progress Progress Note : Time: 18:45 Progress Note Initial evaluation completed, recommended Ultram 50 mg orally for pain and urine analysis. Reviewed ultrasound results from yesterday, no evidence of ovarian cyst noted or other abnormalities. 1939 UA essentially normal. Patient denies diarrhea since admission to the emergency department. Patient does report pain has improved since taking the Ultram. 1999 discussed further options and treatment or follow-up with Dr. Whitley, patient feels she can manage at home. Discharge instructions and return precautions reviewed with her. Diagnostic Imaging Diagonstic Imaging: Ultrasound Comments NAME: MONICA ACOSTA [facility] REC#: [id number] PT STATUS: REG CLI : 1985 PHYSICIAN: VALENTINA WHITLEY DO ADMIT DATE: 10/11/18/RAD Signed Date of Exam: 10/11/18 US NON OB PELVIS COMP/TRANSVAG PROCEDURE: US Non-ob pelvis comp/trans. TECHNIQUE: Multiple realtime grayscale images were obtained of the pelvis in various projections endovaginally. Transabdominal imaging was also performed. INDICATION: Pelvic pain. The uterus measures 7.5 x 4.5 x 3.9 cm. Endometrium is 4 mm in thickness. There is trace fluid within the endometrial canal. No myometrial mass is seen. The right ovary measures 2.7 x 3.7 x 3.1 cm and the left ovary measures 3.8 x 2.5 x 3.3 cm. Ovaries contain small follicles. There is blood flow present bilaterally. No adnexal mass or free fluid is seen. IMPRESSION: Unremarkable pelvic ultrasound. Dictated by: Dictated on workstation # [id number] Dict: 10/11/18 1227 Trans: 10/11/18 1532 Interpreted by: MIMI TREVIZO MD Electronically signed by: MIMI TREVIZO MD 10/11/18 1532 Reviewed: Reviewed by Me Departure Impression Primary Impression: Right lower quadrant pain Additional Impression: Diarrhea Qualified Codes: R19.7 - Diarrhea, unspecified Disposition: 01 HOME, SELF-CARE Condition: Improved Departure-Patient Inst. Decision time for Depature: 19:50 Referrals: [facility]/ (PCP) Primary Care Physician AMELIA ANTONIO APRN (Family) Primary Care Physician Patient Instructions: Diarrhea in Adolescents and Adults Add. Discharge Instructions: Clear liquid diet until diarrhea resolves. Then bland diet. Take Lomotil every 4 hours as needed for diarrhea. Take the tramadol every 6-8 hours as needed for pain. Follow-up with Dr. Whitley if symptoms persist or worsen. Return to the emergency department for new, acute health care problems. All discharge instructions reviewed with patient and/or family. Voiced understanding. Copy Copies To 1: VALENTINA WHITLEY AMY ARNP Oct 12, 2018 19:31
[2018-10-12 19:38] LABS: BACTERIA,URINE FEW /HPF; WBC,URINE RARE /HPF
[2018-10-12] MEDS ORDERED: RX-DIPHENO./ATROP. 2.5/0.25 MG (LOMOTIL) TAB PPK#4 PO STA (20:02)
[2018-10-12] MEDS ORDERED: RX-TRAMADOL 50 MG (ULTRAM) TAB PPK#4 PO STA (20:02)
[2018-10-12 20:28] VITALS: BP 110/72
== END 2018-10-12 20:28 | disposition home or self-care (01) ==
LOC: EDUNIT# 17:58 → ER 17:59
DX: R10.31 Right lower quadrant pain (principal); R19.7 Diarrhea, unspecified; J45.909 Unspecified asthma, uncomplicated; G43.909 Migraine, unspecified, not intractable, without status migrainosus; Z88.0 Allergy status to penicillin; Z88.5 Allergy status to narcotic agent; Z88.8 Allergy status to other drugs, medicaments and biological substances; Z79.51 Long term (current) use of inhaled steroids; Z87.448 Personal history of other diseases of urinary system; Z87.891 Personal history of nicotine dependence; Z98.890 Other specified postprocedural states
CPT/HCPCS: 81000; 99283

== ENCOUNTER → 2019-11-22 | Outpatient (CLI) | payer MEDICAID, OTHER ==
[~2019-11-22] MED LIST changes: +ALBU2.5V4 INH; -IBUP-2055 PO; +IBUP-2473 PO; +PRD20T PO
--- NOTE | 2019-11-22 14:56 | Diagnostic Imaging Report ---
PROCEDURE: US Non-ob pelvis comp/trans. TECHNIQUE: Multiple real-time grayscale images were obtained of the pelvis in various projections endovaginally. Transabdominal imaging was also performed. INDICATION: Acute pelvic pain. FINDINGS: The uterus is anteverted measuring 7.5 x 3.9 x 5.0 cm. Endometrium is 3 mm in thickness. IUD appears to be appropriately centered in the endometrial canal. No myometrial mass is seen. Right ovary measures 4.4 x 1.9 x 2.9 cm and the left ovary measures 3.7 x 2.1 x 2.6 cm. Ovaries contain small follicles. There is blood flow to the ovaries. No adnexal mass or free fluid is detected. Note is made of a small cervical nabothian cyst. IMPRESSION: 1. The IUD appears to be appropriately centered in the endometrial canal. 2. No abnormality is detected. Dictated by: Dictated on workstation # [id number]
== END ==
LOC: RAD 13:52
PROVIDERS: ATTEND Obstetrics & Gynecology
DX: R10.2 Pelvic and perineal pain (principal); Z30.431 Encounter for routine checking of intrauterine contraceptive device
CPT/HCPCS: 76830; 76856

== ENCOUNTER 2019-11-23 11:22 | Emergency (ER) | payer OTHER, MEDICAID ==
[~2019-11-23] VITALS: Ht 167.7 cm; Wt 90.4 kg
[~2019-11-23 11:22] MED LIST changes: -ALBU2.5V4 INH; -PRD20T PO
--- NOTE | 2019-11-23 11:47 | ED Cough/URI ---
General Chief Complaint: Respiratory Problems Stated Complaint: SOB DX W PNEUMONIA/RSV Nursing Triage Note: Ambulatory to 1. Pt reports having walking pneumonia for three weeks and finishing antibiotics on Tuesday. Pt reports symptoms have not improved. Pt reports taking a breathing treatment this morning with no relief. Sepsis Screen: No Definite Risk Source: patient Exam Limitations: no limitations History of Present Illness Date Seen by Provider: Nov 23, 2019 Time Seen by Provider: 11:45 Initial Comments Patient presents to the emergency department with complaints of "walking pneumonia" for 3 weeks. Patient reports symptoms started as nasal congestion, r hinorrhea, sore throat, and productive cough. Now states she has a residual dry cough, wheezing, and intermittent shortness of breath. Patient reports finishing Levaquin yesterday. Patient was seen by Janki Walsh and given Levaquin, prednisone, and Tessalon Perles on 11/08/19 and Virtussin on 11/20/19. Denies having a chest x-ray or labs. Also reports using an albuterol breathing treatment twice daily without improvement. Patient denies improvement in symptoms. Patient does have a history of asthma. Timing/Duration: other (3 week onset) Severity/Quality: dry cough Prior Episodes/Possible Cause: occasional episodes Modifying Factors: Worse With Albuterol Nebulizer (no improvement with nebulizer), Worse With Antibiotics (no improvement with antibiotics), Worse With Coughing Allergies and Home Medications Allergies Coded Allergies: Penicillins (Verified Allergy, Mild, HIVES, 06/26/18) morphine (Verified Allergy, Mild, RED LINES, 06/26/18) sertraline (Unverified Allergy, Mild, STUTTERING, 06/26/18) Home Medications Albuterol Sulfate 1 Puff Puff, 2 PUFF IH Q4H, (Reported) 1 PUFF = 90 MCG Albuterol Sulfate 2.5 Mg/3 Ml Vial.neb, 2.5 MG INH Q4H PRN for WHEEZING Prescribed by: SERENA MARQUEZ on 11/23/19 1442 Hydrocodone Bit/Acetaminophen 1 Tab Tab, 1 TAB PO Q6H PRN Prescribed by: GIANLUCA PARRA on 06/29/18 1157 Prednisone 20 Mg Tab, 40 MG PO DAILY Prescribed by: SERENA MARQUEZ on 11/23/19 1442 Patient Home Medication List Home Medication List Reviewed: Yes Review of Systems Review of Systems Constitutional: No chills, No diaphoresis, No dizziness, No fever; other (fatigue) EENTM: No ear pain, No hoarseness, No mouth pain, No nose congestion, No throat pain Respiratory: see HPI, cough; No phlegm; short of breath, wheezing Cardiovascular: No chest pain, No edema, No palpitations, No syncope Gastrointestinal: No abdominal pain, No constipation, No diarrhea, No nausea, No vomiting Genitourinary: no symptoms reported Musculoskeletal: No other (denies body aches or joint pain) Skin: no symptoms reported Psychiatric/Neurological: No Symptoms Reported Immunological/Allergic: no symptoms reported All Other Systems Reviewed Negative Unless Noted: Yes (Negative excepted noted.) Past Ryqshqj-Arndjx-Xiigxo Hx Past Med/Social Hx: Reviewed Nursing Past Med/Soc Hx Patient Social History Alcohol Use: Denies Use Recreational Drug Use: No Smoking Status: Former Smoker Type Used: Cigarettes Former Smoker, Quit: Jun 26, 2007 2nd Hand Smoke Exposure: No Recent Foreign Travel: No Contact w/Someone Who Travel: No Recent Infectious Disease Expo: No Recent Hopitalizations: No Immunizations Up To Date Tetanus Booster (TDap): Less than 5yrs Date of Influenza Vaccine: Aug 22, 2017 Seasonal Allergies Seasonal Allergies: No Past Medical History Surgeries: Yes (CS X2) Section, Gallbladder Respiratory: Yes Asthma Cardiac: No Neurological: Yes Headaches /Migraines Reproductive Disorders: No 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 0.0oz. [id number]; 32.00 BMI Method:Stated General Appearance: WD/WN, no apparent distress HEENT: PERRL/EOMI, normal ENT inspection, TMs normal, pharynx normal Neck: non-tender, supple, normal inspection Respiratory: lungs clear, no respiratory distress, no accessory muscle use, decreased breath sounds (bilaterally) Cardiovascular: normal peripheral pulses, regular rate, rhythm, no edema, no gallop, no murmur Gastrointestinal: normal bowel sounds, non tender, soft, no organomegaly Extremities: no pedal edema, no calf tenderness, normal capillary refill Neurologic/Psychiatric: alert, normal mood/affect, oriented x 3 Skin: normal color, warm/dry Lymphatic: no adenopathy Progress/Results/Core Measures Suspected Sepsis Recent Fever Within 48 Hours: No Infection Criteria Present: None New/Unexplained Altered Menta: No Sepsis Screen: No Definite Risk SIRS Temperature: Pulse: 84 Respiratory Rate: 16 Blood Pressure 130 /76 Mean: 94 Results/Orders My Orders Orders - SERENA MARQUEZ PA Chest Pa/Lat (2 View) (11/23/19 11:43) Albuterol/Ipra Inhalation Soln (Duoneb I (11/23/19 12:15) Svn Small Volume Nebulizer (11/23/19 12:05) Dexamethasone Injection (Decadron Inject (11/23/19 12:15) Albuterol Pre-Mix Nebs (Rt) (Proventil (11/23/19 13:11) Albuterol/Ipra Inhalation Soln (Duoneb I (11/23/19 13:15) Svn Small Volume Nebulizer (11/23/19 13:11) Svn Small Volume Nebulizer (11/23/19 13:11) Acetaminophen Tablet (Tylenol Tablet) (11/23/19 14:20) Medications Given in ED Current Medications Medications Dose Ordered Sig/Klever Route Start Time Stop Time Status Last Admin Dose Admin Albuterol/ Ipratropium 3 ml ONCE ONCE INH 11/23/19 12:15 11/23/19 12:16 DC 11/23/19 12:57 3 ML Albuterol/ Ipratropium 3 ml ONCE ONCE INH 11/23/19 13:15 11/23/19 13:16 DC 11/23/19 13:18 3 ML Dexamethasone Sodium Phosphate 20 mg ONCE ONCE IH 11/23/19 12:15 11/23/19 12:16 DC 11/23/19 12:57 20 MG Vital Signs/I&O 11/23/19 11/23/19 11/23/19 11:25 12:57 13:21 Temp 37.5 Pulse 84 Resp 16 B/P (MAP) 130/76 (94) Pulse Ox 96 98 99 O2 Delivery Room Air Room Air Room Air Capillary Refill : Less Than 3 Seconds Blood Pressure Mean: 94 Diagnostic Imaging Diagonstic Imaging: Xray Plain Films/CT/US/NM/MRI: chest Comments Date of Exam:11/23/19 CHEST PA/LAT (2 VIEW) INDICATION: Wheezing and cough. TIME OF EXAM: 11:59 a.m. COMPARISON: No prior studies are available for comparison. FINDINGS: The heart size is normal. The pulmonary vascularity is unremarkable. The lungs are clear. No infiltrate, effusion or pneumothorax is detected. IMPRESSION: No acute cardiopulmonary process is detected. Dictated on workstation # [id number] Reviewed: Reviewed by Me (radiology report reviewed by me) Departure Communication (Admissions) Patient seen and evaluated. CXR obtained. patient given 1 duoneb tx and inhaled decadron with expiratory wheezing bilaterally and minimal improvement in symptoms. patient was then given 1 duoneb with 12.5mg of albuterol neb with improvement in symptoms. patient dsch to home with f/u with janki walsh pa-c Tuesday or Tuesday. patient to return to the ED for worsened symptoms or any other concerns. Impression Primary Impression: Asthma exacerbation Qualified Codes: J45.901 - Unspecified asthma with (acute) exacerbation Disposition: HOME, SELF-CARE Condition: Improved Departure-Patient Inst. Decision time for Depature: 14:16 Referrals: VALENTINA WALSH (PCP/Family) Primary Care Physician Patient Instructions: Asthma Action Plan, Asthma, Adult (DC) Add. Discharge Instructions: All discharge instructions reviewed with patient and/or family. Voiced understan augusto. Medications as instructed. Tylenol [id number] as directed for pain or fever. Ibuprofen 600 mg by mouth every 6-8 hours as needed. Follow-up with your family practitioner for recheck as an outpatient Tuesday or Tuesday. Call Tuesday morning for appointment time. Return to the emergency department for worsened symptoms, fever, coughing up blood, vomiting blood, diarrhea, or any other concerns. Scripts Albuterol Sulfate (Albuterol Sulfate) 2.5 Mg/3 Ml Vial.neb 2.5 MG INH Q4H PRN for WHEEZING, #28 EA 0 Refills Prov: SERENA MARQUEZ 11/23/19 Prednisone (Prednisone) 20 Mg Tab 40 MG PO DAILY, #10 TAB 0 Refills Prov: SERENA MARQUEZ 11/23/19 Work/School Note: Work Release Form Date Seen in the Emergency Department: Nov 23, 2019 Return to Work: Nov 26, 2019 SERENA MARQUEZ Nov 23, 2019 11:46
--- NOTE | 2019-11-23 12:04 | Diagnostic Imaging Report ---
INDICATION: Wheezing and cough. TIME OF EXAM: 11:59 a.m. COMPARISON: No prior studies are available for comparison. FINDINGS: The heart size is normal. The pulmonary vascularity is unremarkable. The lungs are clear. No infiltrate, effusion or pneumothorax is detected. IMPRESSION: No acute cardiopulmonary process is detected. Dictated by: Dictated on workstation # [id number]
[2019-11-23] MEDS ORDERED: RT-ALBUTEROL/IPRATROPIUM 3 ML (DUONEB) VIAL INH ONE ×2 (12:15→13:15)
[2019-11-23] MEDS ORDERED: DEXAMETHASONE 4 MG/ML SDV (DECADRON) IH ONE (12:15)
--- NOTE | 2019-11-23 12:40 | NUR ---
RT called for breathing treatment.
[2019-11-23] MEDS ORDERED: RT-ALBUTEROL SULF 2.5 MG/3 ML PRE-MIX VIAL INH STA (13:11)
--- NOTE | 2019-11-23 13:40 | NUR ---
Pt still undergoing hour long breathing treatment; denies needs at this time.
--- NOTE | 2019-11-23 14:02 | NUR ---
Pt denies needs at this time.
[2019-11-23] MEDS ORDERED: ACETAMINOPHEN 500 MG TAB (TYLENOL) PO STA (14:20)
[2019-11-23] MEDS ORDERED: PRD20T PO (14:42)
[2019-11-23] MEDS ORDERED: ALBU2.5V4 INH (14:42)
[2019-11-23 14:49] VITALS: BP 132/88
== END 2019-11-23 14:50 | disposition home or self-care (01) ==
LOC: EDUNIT# 11:22 → ER 11:24
DX: J45.901 Unspecified asthma with (acute) exacerbation (principal); G43.909 Migraine, unspecified, not intractable, without status migrainosus; Z88.0 Allergy status to penicillin; Z88.5 Allergy status to narcotic agent; Z88.8 Allergy status to other drugs, medicaments and biological substances; Z87.891 Personal history of nicotine dependence
CPT/HCPCS: 71046; 94640; 94644

== ENCOUNTER 2020-01-14 16:31 | Emergency (ER) | payer MEDICAID, OTHER ==
[~2020-01-14] VITALS: Ht 167 cm; Wt 93.7 kg
[~2020-01-14 16:31] MED LIST changes: +ALBU2.5V4 INH; -HYDR-3812 PO; +PRD20T PO
[2020-01-14] MEDS ORDERED: PROMETHAZINE 25 MG (PHENERGAN) TAB PO ONE (17:00)
[2020-01-14] MEDS ORDERED: ACETAMINOPHEN 500 MG TAB (TYLENOL) PO ONE (17:00)
[2020-01-14] MEDS ORDERED: diphenhydrAMINE 25 MG TAB (BENADRYL) PO ONE (17:00)
[2020-01-14] MEDS ORDERED: KETOROLAC 60 MG/2 ML VIAL IM ONE (17:00)
--- NOTE | 2020-01-14 17:03 | ED Headache ---
General Chief Complaint: Cardiac/General Problems Stated Complaint: B/P HIGH Nursing Triage Note: COMPLAINS OF HIGH BP OF 200/96 AND A HEADACHE X3 DAYS. HAS NOT TAKEN ANYTHING FOR BOTH. Nursing Sepsis Screen: No Definite Risk Source: patient Exam Limitations: no limitations History of Present Illness Date Seen by Provider: Jan 14, 2020 Time Seen by Provider: 16:50 Initial Comments The patient presents to ER by private conveyance from work with chief complaint she's having a headache for the past couple days and has been measuring her blood pressure and its been high. She does not have a history of high blood pressure but she did have high blood pressure with her in 2011 and was temporarily on medications for it. She now follows with Isaac Walsh for primary care. She does not routinely take any medications except for NuvaRing. She says that she has taken some ibuprofen 800 mg this morning but did not have good relief. She has a history of migraine headaches but does not take anything prevent migraines nor does she take triptan's. She's not having any nausea. For the Past couple days she's had poor appetite. No fever chills vomiting diarrhea rash cough shortness of breath or exposure to sick contacts. Allergies and Home Medications Allergies Coded Allergies: Penicillins (Verified Allergy, Mild, HIVES, 06/26/18) morphine (Verified Allergy, Mild, RED LINES, 06/26/18) sertraline (Unverified Allergy, Mild, STUTTERING, 06/26/18) Home Medications Albuterol Sulfate 1 Puff Puff, 2 PUFF IH Q4H, (Reported) 1 PUFF = 90 MCG Albuterol Sulfate 2.5 Mg/3 Ml Vial.neb, 2.5 MG INH Q4H PRN for WHEEZING Prescribed by: SERENA MARQUEZ on 11/23/19 1442 Hydrocodone Bit/Acetaminophen 1 Tab Tab, 1 TAB PO Q6H PRN Prescribed by: GIANLUCA PARRA on 06/29/18 1157 Prednisone 20 Mg Tab, 40 MG PO DAILY Prescribed by: SERENA MARQUEZ on 11/23/19 144 Patient Home Medication List Home Medication List Reviewed: Yes Review of Systems Review of Systems Constitutional: No chills, No diaphoresis Eyes: Denies Blindness, Denies Blurred Vision Ears, Nose, Mouth, Throat: denies ear pain, denies ear discharge Respiratory: No cough, No short of breath Cardiovascular: No chest pain, No edema Gastrointestinal: No abdominal pain; loss of appetite; No nausea, No vomiting Genitourinary: No discharge, No dysuria Musculoskeletal: No back pain, No joint pain All Other Systems Reviewed Negative Unless Noted: Yes Past Vdizyrm-Vjspmo-Hpzghn Hx Patient Social History Alcohol Use: Rarely Uses Recreational Drug Use: No Smoking Status: Never a Smoker Type Used: Cigarettes Former Smoker, Quit: Jun 26, 2007 2nd Hand Smoke Exposure: No Recent Foreign Travel: No Contact w/Someone Who Travel: No Recent Infectious Disease Expo: No Recent Hopitalizations: No Immunizations Up To Date Tetanus Booster (TDap): Less than 5yrs Date of Influenza Vaccine: Aug 22, 2017 Seasonal Allergies Seasonal Allergies: No Past Medical History Surgeries: Yes (CS X2) Section, Gallbladder Respiratory: Yes (SCAROIDOSIS) Asthma Cardiac: No Neurological: Yes Headaches /Migraines Reproductive Disorders: No 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 0.0oz. [id number]; 33.00 BMI Method:Stated General Appearance: WD/WN, no apparent distress HEENT: PERRL/EOMI, normal ENT inspection, TMs normal, pharynx normal Neck: non-tender, full range of motion, supple, normal inspection Cardiovascular: normal peripheral pulses, regular rate, rhythm, no edema Respiratory: lungs clear, normal breath sounds, no respiratory distress, no accessory muscle use Extremities: normal inspection, normal capillary refill Psychiatric: alert, oriented x 3 Crainal Nerves: normal hearing, normal speech, PERRL Coordination/Gait: normal gait Skin: normal color, warm/dry Progress/Results/Core Measures Results/Orders My Orders Orders - NANCY PRADO Urine Bedside (01/14/20 16:55) Ketorolac Injection (Toradol Injection) (01/14/20 17:00) Promethazine Tablet (Phenergan Tablet) (01/14/20 17:00) Acetaminophen Tablet (Tylenol Tablet) (01/14/20 17:00) Diphenhydramine Tablet (Benadryl Tablet) (01/14/20 17:00) Vital Signs/I&O 01/14/20 16:33 Temp 36.8 Pulse 76 Resp 16 B/P (MAP) 131/84 (100) Pulse Ox 98 O2 Delivery Room Air Blood Pressure Mean: 100 Progress Progress Note : Time: 17:00 Progress Note Phenergan, Benadryl, Tylenol, Toradol. Bedside test. No red flag symptoms. Departure Impression Primary Impression: Headache Qualified Codes: G44.209 - Tension-type headache, unspecified, not intractable Disposition: 01 HOME, SELF-CARE Condition: Stable Departure-Patient Inst. Decision time for Depature: 17:02 Referrals: ISAAC WALSH (PCP/Family) Primary Care Physician Patient Instructions: Headache, Adult (DC) Add. Discharge Instructions: Go home directly and drink plenty of fluids. Get some sleep. Return to work tomorrow. Tylenol 1000 mg every 8 hours as needed for headache. Ibuprofen 800 mg every 8 hours as needed for headache. All discharge instructions reviewed with patient and/or family. Voiced understanding. Work/School Note: Work Release Form Date Seen in the Emergency Department: Jan 14, 2020 Return to Work: Jan 15, 2020 Restrictions: No Restrictions NANCY PRADO Jan 14, 2020 17:03
[2020-01-14 17:14] VITALS: BP 137/98
--- OUTSIDE RECORDS SUMMARY | 2020-01-17 03:37 | XMS REPORT ---
Author Author Michelle WALSH Organization [facility] Address [address] [place], [place] [id number] Care Team Providers Care General Manager In Training Name Role Phone VALENTINA WALSH PCP VALENTINA WALSH PreferredProvider Allergies and Adverse Reactions Name Reaction Notes morphine pcn Plan of Treatment Not available. Medications Active Name Start Date Estimated Completion Date SIG Co mments Tessalon Perles 100 mg oral capsule 11/08/2019 take 1-2 capsule by oral route Q4-6H PRN cough ibuprofen 800 mg oral tablet roselyn e 1 tablet (800 mg) by oral route 3 times per day with food promethazine-codeine 6.25-10 mg/5 mL oral syrup 11/30/2019 take 5 milliliters by oral route every 6 hours as needed, not to exceed 30 mL in 24 hours albuterol sulfate 2.5 mg /3 mL (0.083 %) inhalation so lution for nebulization 11/30/2019 inhale 3 milliliters (2.5 mg ) by nebulization route 3-4 times per day Name Start Date Expiration Date SIG Comments prednisone 20 mg oral tablet 11/08/2019 11/20/2019 2X4 days 1X4 days 2X4 days dexamethasone 4 mg oral tablet 11/30/2019 12/06/2019 t nilsa 1 tablet (4 mg) by oral route 3 times per day for 2 days 2 times per day 2 days and once daily for 2 days Levaquin 500 mg oral tablet 12/07/2019 12/17/2019 take 1 tablet (500 mg) by oral route once daily for 10 days Problem List Not available. Vital Signs Date Time BP-Sys(mm[Hg] BP-Joyce(mm[Hg]) HR(bpm) RR(rpm) Temp WT HT HC BMI BSA BMI Percentile O2 Sat(%) 12/03/2019 9:44:00 AM 188 mm[Hg] 90 mm[Hg] 121 {beats}/min 16 rpm 98.8 F 199.187 lbs 99 % 11/29/2019 9:35:00 AM 112 mm[Hg] 88 mm[Hg] 71 {beats}/min 16 rpm 98.2 F 200.562 lbs 97 % 11/12/2019 10:46:00 AM 112 mm[Hg] 88 mm[Hg] 98 {beats}/min 18 rpm 98.2 F 202.125 lbs 98 % 11/08/2019 4:16:00 PM 128 mm[Hg] 92 mm[Hg] 103 {beats}/min 19 rpm 98.6 F 201 lbs 96 % Social History Name Description Comments Uses seatbelts Tobacco Never smoker Alcohol Never History of Procedures Date Ordered Description Order Status 11/08/2019 12:00 AM THERAPEUTIC PROPHYLACTIC/DX INJECTION [place] BQ/IM Reviewed 11/08/2019 12:00 AM Decadron 8mg Injection, [facility] Medicaid Rev iewed 11/12/2019 12:00 AM Rocephin 1 gram Injection, [facility] Medicaid Reviewed 11/12/2019 12:00 AM THER/PROPH/DIAG INJ SC/IM Reviewed 11/12/2019 12:00 AM Decadron 8mg Injection Reviewed 11/12/2019 12:00 AM THERAPEUTIC PROPHYLACTIC/DX INJECTION [place] BQ/IM Reviewed 11/12/2019 12:00 AM Decadron 8mg Injection, [facility] Medicaid Rev iewed 11/29/2019 12:00 AM THER/PROPH/DIAG INJ SC/IM Reviewed 11/29/2019 12:00 AM Decadron 4mg Injection Reviewed Results Summary Not available. History Of Immunizations Not available. History of Past Illness Name Date of Onset Comments ADHD Anxiety arthritis Asthma Depression Bronchitis HEADACHES UTI Weight Change Chest congestion Nov 08 2019 4:18PM Sinus pressure Nov 08 2019 4:18PM Upper respiratory tract infection, unspecified type Nov 08 4:18PM Purulent postnasal drainage Nov 08 2019 4:18PM Moderate Acute Right Pleurisy without effusion Nov 08 2019 4:18PM Cough Nov 12 2019 10:57AM Chest congestion Nov 12 2019 10:57AM Upper respiratory tract infection, unspecified type Nov 12 10:57AM Acute bronchitis, unspecified organism Nov 12 2019 10:57AM Cough Dec 03 2019 9:46AM Chest congestion Dec 03 2019 9:46AM Acute bronchitis due to Mycoplasma pneumoniae Dec 03 2019 9 :46AM Chest congestion Nov 29 2019 9:36AM Acute bronchitis, unspecified organism Nov 29 2019 9:36AM Encounter for examination following treatment at hospital 2019 9:36AM Payers Insurance Name Company Name Plan Name Plan Number Policy Number [employer] Group Number Start Date [facility] [id number] N/A History of Encounters Visit Date Visit Type Provider 12/03/2019 Office visit VALENTINA MILLER 11/29/2019 Office visit VALENTINA MILLER 11/12/2019 Office visit VALENTINA MILLER 11/08/2019 Office visit VALENTINA MILLER
--- OUTSIDE RECORDS SUMMARY | 2020-01-17 03:37 | XMS REPORT | Continuity of Care Document ---
Author Organization Unknown Address Unknown Phone Unavailable Allergies Active Description Code Type Severity Reaction Onset Reported/Identified Relationship to Patient Clinical Status Yes MORPHINE UNKNOWN UNKNOWN Yes PENICILLINS UNKNOWN UNKNOWN Yes morphine [id number] Drug Allergy Unknown N/A 10/07/2017 Yes Penicillins [id number] Drug Aller gy Unknown N/A 10/07/2017 Yes sertraline [id number] Drug Allerg y Unknown N/A 03/26/2018 Yes morphine [id number] Drug Allergy Mild RED LINES 06/26/2018 Yes Penicillins [id number] Drug Aller gy Mild HIVES 06/26/2018 Yes sertraline [id number] Drug Allerg y Mild STUTTERING 06/26/2018 Medications Medication Packaging Start Date St op Date Route Dosage Sig EYE WASH IRRIGATION LIQ (EYE WASH) cathy 10/29/2018 10/29/2018 ONCE&1920 TETRACAINE EYE DROP DRP 0.5 % drop 10/29/2018 10/29/2018 ONCE&2026 DEXAMETHASONE VIAL INJ 10 MG/CC (DECADRON VIAL) MG 12/31/2018 12/31/2018 ONCE&1851 Problems Date Dx Coded Attending Type Code Diagnosis Diagnosed By 10/03/2017 NANCY PRADO MD Ot F17.200 NICOTINE DEPENDENCE, UNSPECIFIED, UNCOMP 10/03/2017 NANCY PRADO MD, Ot J45.909 UNSPECIFIED ASTHMA, UNCOMPLICATED 10/03/2017 NANCY PRADO MD Ot R10. 30 LOWER ABDOMINAL PAIN, UNSPECIFIED 10/03/2017 NANCY PRADO MD Ot Z87. 59 PERSONAL HISTORY OF COMP OF PREG, CHLDBR 10/08/2017 NANCY PRADO MD, Ot J45.909 UNSPECIFIED ASTHMA, UNCOMPLICATED 10/08/2017 NNACY PRADO MD Ot R10. 31 RIGHT LOWER QUADRANT PAIN 10/08/2017 NANCY PRADO MD Ot R31. 9 HEMATURIA, UNSPECIFIED 10/08/2017 NANCY PRADO MD Ot Z87. 59 PERSONAL HISTORY OF COMP OF PREG, CHLDBR 11/28/2017 IFEANYI CHAVES APRN Ot J45.909 UNSPECIFIED ASTHMA, UNCOMPLICATED 11/28/2017 IFEANYI CHAVES PITCH GATHERER Ot M62.838 OTHER MUSCLE SPASM 11/28/2017 IFEANYI CHAVES PITCH GATHERER Ot R10.12 LEFT UPPER QUADRANT PAIN 11/28/2017 IFEANYI CHAVES APRN Ot Z87.59 PERSONAL HISTORY OF COMP OF PREG, CHLDBR 03/27/2018 SERENA LAMBERT Ot F17.290 NICOTINE DEPENDENCE, OTHER TOBACCO PRODU 03/27/2018 SERENA LAMBERT Ot J45.909 UNSPECIFIED ASTHMA, UNCOMPLICATED 03/27/2018 SERENA LAMBERT Ot S90.112A CONTUSION OF LEFT GREAT TOE W/O DAMAGE T 03/27/2018 SERENA LAMBERT Ot S92.402A DISPLACED UNSP FRACTURE OF LEFT GREAT TO 03/27/2018 SERENA LAMBERT Ot W20.8XXA OTH CAUSE OF STRIKE BY THROWN, PROJECTED 03/27/2018 SERENA LAMBERT Ot Z79.51 OVEN HEATER HELPER (CURRENT) USE OF INHALED STERO 03/27/2018 SERENA LAMBERT Ot Z87.59 PERSONAL HISTORY OF COMP OF PREG, CHLDBR 03/27/2018 SERENA LAMBERT Ot Z88.0 ALLERGY STATUS TO PENICILLIN 03/27/2018 SERENA LAMBERT Ot Z88.5 ALLERGY STATUS TO NARCOTIC AGENT STATUS 03/27/2018 SERENA LAMBERT Ot Z88.8 ALLERGY STATUS TO OTH DRUG/MEDS/BIOL SUB 03/28/2018 SERENA LAMBERT Ot F17.290 NICOTINE DEPENDENCE, OTHER TOBACCO PRODU 03/28/2018 SERENA LAMBERT Ot J45.909 UNSPECIFIED ASTHMA, UNCOMPLICATED 03/28/2018 SERENA LAMBERT Ot S90.112A CONTUSION OF LEFT GREAT TOE W/O DAMAGE T 03/28/2018 SERENA LAMBERT Ot S92.402A DISPLACED UNSP FRACTURE OF LEFT GREAT TO 03/28/2018 SERENA LAMBERT Ot W20.8XXA OTH CAUSE OF STRIKE BY THROWN, PROJECTED 03/28/2018 SERENA LAMBERT Ot Z79.51 OVEN HEATER HELPER (CURRENT) USE OF INHALED STERO 03/28/2018 SERENA LAMBERT Ot Z87.59 PERSONAL HISTORY OF COMP OF PREG, CHLDBR 03/28/2018 SERENA LAMBERT Ot Z88.0 ALLERGY STATUS TO PENICILLIN 03/28/2018 SERENA LAMBERT Ot Z88.5 ALLERGY STATUS TO NARCOTIC AGENT STATUS 03/28/2018 SERENA LAMBERT Ot Z88.8 ALLERGY STATUS TO OTH DRUG/MEDS/BIOL SUB 04/20/2018 Faith Connor 924.21 CONTUSION OF ANKLE 04/20/2018 Faith Connor S90.01XA CONTUSION OF RIGHT ANKLE, INITIAL ENCOUNTER 05/29/2018 AMELIA ANTONIO APRN Ot K82.4 CHOLESTEROLOSIS OF GALLBLADDER 06/01/2018 AMELIA ANTONIO PITCH GATHERER Ot K82.4 CHOLESTEROLOSIS OF GALLBLADDER 06/26/2018 Ot R10.9 UNSP ECIFIED ABDOMINAL PAIN 06/26/2018 GIANLUCA PARRA DO Ot Z01.8 18 ENCOUNTER FOR OTHER PREPROCEDURAL EXAMIN 06/29/2018 GIANLUCA PARRA DO Ot J45.9 09 UNSPECIFIED ASTHMA, UNCOMPLICATED 06/29/2018 GIANLUCA PARRA DO Ot K81.1 CHRONIC CHOLECYSTITIS 07/22/2018 GIANLUCA PARRA DO Ot J45.9 09 UNSPECIFIED ASTHMA, UNCOMPLICATED 07/22/2018 GIANLUCA PARRA DO Ot K81.1 CHRONIC CHOLECYSTITIS 09/15/2018 SERENA LAMBERT Ot G43.909 MIGRAINE, UNSP, NOT INTRACTABLE, WITHOUT 09/15/2018 SERENA LAMBERT Ot J45.909 UNSPECIFIED ASTHMA, UNCOMPLICATED 09/15/2018 SERENA LAMBERT Ot R10.30 LOWER ABDOMINAL PAIN, UNSPECIFIED 09/15/2018 SERENA LAMBERT Ot R10.31 RIGHT LOWER QUADRANT PAIN 09/15/2018 SERENA LAMBERT Ot R10.32 LEFT LOWER QUADRANT PAIN 09/15/2018 SERENA LAMBERT Ot Z79.51 JAIL (CURRENT) USE OF INHALED STERO 09/15/2018 SERENA LAMBERT Ot Z87.448 PERSONAL HISTORY OF OTHER DISEASES OF UR 09/15/2018 SERENA LAMBERT Ot Z87.891 PERSONAL HISTORY OF NICOTINE DEPENDENCE 09/15/2018 SERENA LAMBERT Ot Z88.0 ALLERGY STATUS TO PENICILLIN 09/15/2018 SERENA LAMBERT Ot Z88.5 ALLERGY STATUS TO NARCOTIC AGENT STATUS 09/15/2018 SERENA LAMBERT Ot Z88.8 ALLERGY STATUS TO OTH DRUG/MEDS/BIOL SUB 09/15/2018 SERENA LAMBERT Ot Z98.890 OTHER SPECIFIED POSTPROCEDURAL STATES 09/18/2018 SERENA LAMBERT Ot G43.909 MIGRAINE, UNSP, NOT INTRACTABLE, WITHOUT 09/18/2018 SERENA LAMBERT Ot J45.909 UNSPECIFIED ASTHMA, UNCOMPLICATED 09/18/2018 SERENA LAMBERT Ot R10.30 LOWER ABDOMINAL PAIN, UNSPECIFIED 09/18/2018 SERENA LAMBERT Ot R10.31 RIGHT LOWER QUADRANT PAIN 09/18/2018 SERENA LAMBERT Ot R10.32 LEFT LOWER QUADRANT PAIN 09/18/2018 SERENA LAMBERT Ot Z79.51 JAIL (CURRENT) USE OF INHALED STERO 09/18/2018 SERENA LAMBERT Ot Z87.448 PERSONAL HISTORY OF OTHER DISEASES OF UR 09/18/2018 SERENA LAMBERT Ot Z87.891 PERSONAL HISTORY OF NICOTINE DEPENDENCE 09/18/2018 SERENA LAMBERT Ot Z88.0 ALLERGY STATUS TO PENICILLIN 09/18/2018 SERENA LAMBERT Ot Z88.5 ALLERGY STATUS TO NARCOTIC AGENT STATUS 09/18/2018 SERENA LAMBERT Ot Z88.8 ALLERGY STATUS TO OTH DRUG/MEDS/BIOL SUB 09/18/2018 SERENA LAMBETR Ot Z98.890 OTHER SPECIFIED POSTPROCEDURAL STATES 09/25/2018 SERENA LAMBERT Ot G43.909 MIGRAINE, UNSP, NOT INTRACTABLE, WITHOUT 09/25/2018 SERENA LAMBERT Ot J45.909 UNSPECIFIED ASTHMA, UNCOMPLICATED 09/25/2018 SERENA LAMBERT Ot R10.30 LOWER ABDOMINAL PAIN, UNSPECIFIED 09/25/2018 SERENA LAMBERT Ot R10.31 RIGHT LOWER QUADRANT PAIN 09/25/2018 SERENA LAMBERT Ot R10.32 LEFT LOWER QUADRANT PAIN 09/25/2018 SERENA LAMBERT Ot Z79.51 JAIL (CURRENT) USE OF INHALED STERO 09/25/2018 SERENA LAMBERT Ot Z87.448 PERSONAL HISTORY OF OTHER DISEASES OF UR 09/25/2018 SERENA LAMBERT Ot Z87.891 PERSONAL HISTORY OF NICOTINE DEPENDENCE 09/25/2018 SERENA LAMBERT Ot Z88.0 ALLERGY STATUS TO PENICILLIN 09/25/2018 SERENA LAMBERT Ot Z88.5 ALLERGY STATUS TO NARCOTIC AGENT STATUS 09/25/2018 SERENA LAMBERT Ot Z88.8 ALLERGY STATUS TO OTH DRUG/MEDS/BIOL SUB 09/25/2018 SERENA LAMBERT Ot Z98.890 OTHER SPECIFIED POSTPROCEDURAL STATES 10/12/2018 VALENTNIA LUA DO S Ot R10.2 PELVIC AND PERINEAL PAIN 10/12/2018 STALIN JIN SHAKER OPERATOR Ot G43.909 MIGRAINE, UNSP, NOT INTRACTABLE, WITHOUT 10/12/2018 STALIN JIN SHAKER OPERATOR Ot J45.909 UNSPECIFIED ASTHMA, UNCOMPLICATED 10/12/2018 STALIN JIN SHAKER OPERATOR Ot R10.31 RIGHT LOWER QUADRANT PAIN 10/12/2018 STALIN JIN SHAKER OPERATOR Ot R19.7 DIARRHEA, UNSPECIFIED 10/12/2018 STALIN JIN SHAKER OPERATOR Ot Z79.51 JAIL (CURRENT) USE OF INHALED STERO 10/12/2018 STALIN JIN SHAKER OPERATOR Ot Z87.448 PERSONAL HISTORY OF OTHER DISEASES OF UR 10/12/2018 STALIN JIN SHAKER OPERATOR Ot Z87.891 PERSONAL HISTORY OF NICOTINE DEPENDENCE 10/12/2018 STALIN JIN SHAKER OPERATOR Ot Z88.0 ALLERGY STATUS TO PENICILLIN 10/12/2018 STALIN JIN SHAKER OPERATOR Ot Z88.5 ALLERGY STATUS TO NARCOTIC AGENT STATUS 10/12/2018 STALIN JIN SHAKER OPERATOR Ot Z88.8 ALLERGY STATUS TO OTH DRUG/MEDS/BIOL SUB 10/12/2018 STALIN JIN SHAKER OPERATOR Ot Z98.890 OTHER SPECIFIED POSTPROCEDURAL STATES 10/16/2018 STALIN, JIN SHAKER OPERATOR Ot G43.909 MIGRAINE, UNSP, NOT INTRACTABLE, WITHOUT 10/16/2018 STALIN, JIN SHAKER OPERATOR Ot J45.909 UNSPECIFIED ASTHMA, UNCOMPLICATED 10/16/2018 STALIN JIN SHAKER OPERATOR Ot R10.31 RIGHT LOWER QUADRANT PAIN 10/16/2018 STALIN JIN SHAKER OPERATOR Ot R19.7 DIARRHEA, UNSPECIFIED 10/16/2018 STALIN JIN SHAKER OPERATOR Ot Z79.51 OVEN HEATER HELPER (CURRENT) USE OF INHALED STERO 10/16/2018 STALIN JIN SHAKER OPERATOR Ot Z87.448 PERSONAL HISTORY OF OTHER DISEASES OF UR 10/16/2018 STALIN JIN SHAKER OPERATOR Ot Z87.891 PERSONAL HISTORY OF NICOTINE DEPENDENCE 10/16/2018 STALIN, JIN SHAKER OPERATOR Ot Z88.0 ALLERGY STATUS TO PENICILLIN 10/16/2018 STALIN JIN SHAKER OPERATOR Ot Z88.5 ALLERGY STATUS TO NARCOTIC AGENT STATUS 10/16/2018 STALIN JIN SHAKER OPERATOR Ot Z88.8 ALLERGY STATUS TO OTH DRUG/MEDS/BIOL SUB 10/16/2018 STALIN JIN SHAKER OPERATOR Ot Z98.890 OTHER SPECIFIED POSTPROCEDURAL STATES 10/29/2018 MADELAINE MUNIZ 918.1 SUPERFICIAL INJURY OF CORNEA 10/29/2018 MADELAINE MUNIZ S05.0 1XA INJ CONJUNCTIVA AND CORNEAL ABRASION W/O FB, RIGHT EYE, INIT 11/01/2018 VALENTINA LAU DO Ot R10.2 PELVIC AND PERINEAL PAIN 12/31/2018 Ifeanyi Chaves 466.0 ACUTE BRONCHITIS 12/31/2018 Ifeanyi Chaves J20.9 ACUTE BRONCHITIS, UNSPECIFIED 01/25/2019 JULIETTE DYE S63.655D SPRAIN OF METACARPOPHALANGEAL JOINT OF LEFT RING FINGER, SUBSEQUENT ENCOUNTER 01/25/2019 JULIETTE DYE V58.89 ENCOUNTER FOR OTHER SPECIFIED AFTERCARE 01/25/2019 JULIETTE DYE 842.12 SPRAIN OF METACARPOPHALANGEAL (JOINT) OF HAND 01/25/2019 JULIETTE DYE S63.655A SPRAIN OF MCP JOINT OF LEFT RING FINGER, INIT 04/11/2019 Remedios Albarado 923.10 CONTUSION OF FOREARM 04/11/2019 Remedios Albarado S50.12 XA CONTUSION OF LEFT FOREARM, INITIAL ENCOUNTER 11/22/2019 PACOAMELIA PITCH GATHERER Ot K82.4 CHOLESTEROLOSIS OF GALLBLADDER 11/22/2019 Ot R10.9 UNSP ECIFIED ABDOMINAL PAIN 11/22/2019 FENECH DO, VALENTINA S Ot R10.2 PELVIC AND PERINEAL PAIN 11/23/2019 [facility], VALENTINA S Ot R10.2 PELVIC AND PERINEAL PAIN 11/23/2019 [facility] DO, VALENTINA S Ot Z30.431 ENCOUNTER FOR ROUTINE CHECKING OF INTRAU 11/27/2019 SERENA LAMBERT Ot G43.909 MIGRAINE, UNSP, NOT INTRACTABLE, WITHOUT 11/27/2019 SERENA LAMBERT Ot J45.901 UNSPECIFIED ASTHMA WITH (ACUTE) EXACERBA 11/27/2019 SERENA LAMBERT Ot R06.02 SHORTNESS OF BREATH 11/27/2019 SERENA LAMBERT Ot Z87.891 PERSONAL HISTORY OF NICOTINE DEPENDENCE 11/27/2019 SERENA LAMBERT Ot Z88.0 ALLERGY STATUS TO PENICILLIN 11/27/2019 SERENA LAMBERT Ot Z88.5 ALLERGY STATUS TO NARCOTIC AGENT STATUS 11/27/2019 SERENA LAMBERT Ot Z88.8 ALLERGY STATUS TO OTH DRUG/MEDS/BIOL SUB [facility] Ot R10.2 PELVIC AND PERINEAL PAIN 11/27/2019 FENECH DO, VALENTINA S Ot Z30.431 ENCOUNTER FOR ROUTINE CHECKING OF INTRAU 11/27/2019 FENECH DO, VALENTINA S Ot R10.2 PELVIC AND PERINEAL PAIN 11/27/2019 [facility] S Ot Z30.431 ENCOUNTER FOR ROUTINE CHECKING OF INTRAU 12/06/2019 [facility] S Ot R10.2 PELVIC AND PERINEAL PAIN 12/06/2019 FENECH DO, VALENTINA S Ot Z30.431 ENCOUNTER FOR ROUTINE CHECKING OF INTRAU Procedures There is no data. Results Test Result Range Complete urinalysis with reflex to cultu re - 10/03/17 18:20 Urine color determination YELLOW NRG Urine clarity determination CLEAR NR G Urine pH measurement by test strip 7 5-9 Specific gravity of urine by test strip 1.015 1.016-1.022 Urine protein assay by test strip, semi-quantitative NEGATIVE NEGATIVE Urine glucose detection by automated test strip NE GATIVE NEGATIVE Erythrocytes detection in urine sediment by light micr oscopy 3+ NEGATIVE Urine ketones detection by automated test strip NE GATIVE NEGATIVE Urine nitrite detection by test strip NEGATIVE NEGATIVE Urine total bilirubin detection by test strip NEGA TIVE NEGATIVE Urine urobilinogen measurement by automated test strip (mass/volume) 1 mg/dL NORMAL Urine leukocyte esterase detection by dipstick 1+ NEGATIVE Automated urine sediment erythrocyte cou nt by microscopy (number/high power field) [HPF] NRG Automated urine sediment leukocyte count by microscopy (number/high power field) [HPF] NRG Bacteria detection in urine sediment by light microsco py LARGE NRG Squamous epithelial cells detection in u rine sediment by light microscopy 5-10 NRG Crystals detection in urine sediment by light microsco py NONE NRG Casts detection in urine sediment by light microscopy NONE NRG Mucus detection in urine sediment by light microscopy LARGE NRG Complete urinalysis with reflex to culture YES NRG Bacterial urine culture - 10/03/17 18:20 URINE CULTURE RESULTS <10,000/ML NRG Complete urinalysis with reflex to cultu re - 10/07/17 23:15 Urine color determination YELLOW NRG Urine clarity determination SLIGHTLY CLOUDY NRG Urine pH measurement by test strip 6.5 5-9 Specific gravity of urine by test strip 1.020 1.016-1.022 Urine protein assay by test strip, semi-quantitative 1+ NEGATIVE Urine glucose detection by automated test strip NE GATIVE NEGATIVE Erythrocytes detection in urine sediment by light micr oscopy 4+ NEGATIVE Urine ketones detection by automated test strip 1+ NEGATIVE Urine nitrite detection by test strip NEGATIVE NEGATIVE Urine total bilirubin detection by test strip 1+ NEGATIVE Urine urobilinogen measurement by automated test strip (mass/volume) 4 mg/dL NORMAL Urine leukocyte esterase detection by dipstick 2+ NEGATIVE Automated urine sediment erythrocyte cou nt by microscopy (number/high power field) [HPF] NRG Automated urine sediment leukocyte count by microscopy (number/high power field) [HPF] NRG Bacteria detection in urine sediment by light microsco py LARGE NRG Squamous epithelial cells detection in u rine sediment by light microscopy 10-25 NRG Crystals detection in urine sediment by light microsco py NONE NRG Casts detection in urine sediment by light microscopy NONE NRG Mucus detection in urine sediment by light microscopy LARGE NRG Complete urinalysis with reflex to culture YES NRG Urine beta human chorionic gonadotropin (hCG) measurement - 10/07/17 23:15 Urine beta human chorionic gonadotropin (hCG) measurem ent NEGATIVE NEGATIVE Urine drug screening test - 10/07/17 23: 15 Urine phencyclidine detection by screening method NEGATIVE NEGATIVE Urine benzodiazepines detection by screening method NEGATIVE NEGATIVE Urine cocaine detection NEGATIVE NEGATI VE Urine amphetamines detection by screening method N EGATIVE NEGATIVE Urine methamphetamine detection by screening method NEGATIVE NEGATIVE Urine cannabinoids detection by screening method N EGATIVE NEGATIVE Urine opiates detection by screening method NEGATI VE NEGATIVE Urine barbiturates detection NEGATIVE N EGATIVE Screening urine tricyclic antidepressants detection NEGATIVE NEGATIVE Urine methadone detection by screening method NEGA TIVE NEGATIVE Urine oxycodone detection NEGATIVE NEGA TIVE Urine propoxyphene detection NEGATIVE N EGATIVE Bacterial urine culture - 10/07/17 23:15 Bacterial urine culture NG NRG Complete blood count (CBC) with automate d white blood cell (WBC) differential - 10/07/17 23:25 Blood leukocytes automated count (number/volume) 10.8 10*3/uL 4.3-11.0 Blood erythrocytes automated count (number/volume) 4.86 10*6/uL 4.35-5.85 Venous blood hemoglobin measurement (mass/volume) 14.8 g/dL 11.5-16.0 Blood hematocrit (volume fraction) 43 % 35-52 Automated erythrocyte mean corpuscular volume 88 [ foz_us] 80-99 Automated erythrocyte mean corpuscular h emoglobin (mass per erythrocyte) 31 pg 25-34 Automated erythrocyte mean corpuscular h emoglobin concentration measurement (mass/volume) 35 g/dL 32-36 Automated erythrocyte distribution width ratio 12. 5 % 10.0- 14.5 Automated blood platelet count (count/volume) 223 10*3/uL 130-400 Automated blood platelet mean volume measurement 12.0 [foz_us] 7.4-10.4 Automated blood neutrophils/100 leukocytes 66 % 42-75 Automated blood lymphocytes/100 leukocytes 25 % 12-44 Blood monocytes/100 leukocytes 8 % 0-12 Automated blood eosinophils/100 leukocytes 1 % 0-10 Automated blood basophils/100 leukocytes 0 % 0-10 Blood neutrophils automated count (number/volume) 7.1 10*3 1.8-7.8 Blood lymphocytes automated count (number/volume) 2.7 10*3 1.0-4.0 Blood monocytes automated count (number/volume) 0. 9 10*3 0.0-1.0 Automated eosinophil count 0.1 10*3/uL 0 .0-0.3 Automated blood basophil count (count/volume) 0.0 10*3/uL 0.0-0.1 Comprehensive metabolic panel - 10/07/17 23:25 Serum or plasma sodium measurement (moles/volume) 141 mmol/L 135-145 Serum or plasma potassium measurement (moles/volume) 3.7 mmol/L 3.6-5.0 Serum or plasma chloride measurement (moles/volume) 108 mmol/L 98-107 Carbon dioxide 24 mmol/L 21-32 Serum or plasma anion gap determination (moles/volume) 9 mmol/L 5-14 Serum or plasma urea nitrogen measurement (mass/volume ) 9 mg/dL 7-18 Serum or plasma creatinine measurement (mass/volume) 0.82 mg/dL 0.60-1.30 Serum or plasma urea nitrogen/creatinine mass ratio 11 NRG Serum or plasma creatinine measurement w ith calculation of estimated glomerular filtration rate > NRG Serum or plasma glucose measurement (mass/volume) 91 mg/dL 70-105 Serum or plasma calcium measurement (mass/volume) 9.8 mg/dL 8.5-10.1 Serum or plasma total bilirubin measurement (mass/volu me) 0.6 mg/dL 0.1-1.0 Serum or plasma alkaline phosphatase magali surement (enzymatic activity/volume) 54 U/L 40-136 Serum or plasma aspartate aminotransfera se measurement (enzymatic activity/volume) 12 U/L 5-34 Serum or plasma alanine aminotransferase measurement (enzymatic activity/volume) 13 U/L 0-55 Serum or plasma protein measurement (mass/volume) 7.8 g/dL 6.4-8.2 Serum or plasma albumin measurement (mass/volume) 4.5 g/dL 3.2-4.5 Magnesium - 10/07/17 23:25 Magnesium 2.3 mg/dL 1.8-2.4 Lipase - 10/07/17 23:25 Lipase 22 U/L 8-78 A1C - 02/08/18 15:12 HEMOGLOBIN A1c 5.0 % of total Hgb <5.7 Methicillin resistant Staphylococcus aur eus (MRSA) screening culture - 06/29/18 08:34 Methicillin resistant Staphylococcus aureus (MRSA) scr eening culture NEG NRG Complete urinalysis with reflex to cultu re - 09/15/18 16:30 Urine color determination YELLOW NRG Urine clarity determination SLIGHTLY CLOUDY NRG Urine pH measurement by test strip 8 5-9 Specific gravity of urine by test strip 1.010 1.016-1.022 Urine protein assay by test strip, semi-quantitative NEGATIVE NEGATIVE Urine glucose detection by automated test strip NE GATIVE NEGATIVE Erythrocytes detection in urine sediment by light micr oscopy NEGATIVE NEGATIVE Urine ketones detection by automated test strip NE GATIVE NEGATIVE Urine nitrite detection by test strip NEGATIVE NEGATIVE Urine total bilirubin detection by test strip NEGA TIVE NEGATIVE Urine urobilinogen measurement by automated test strip (mass/volume) NORMAL NORMAL Urine leukocyte esterase detection by dipstick 1+ NEGATIVE Automated urine sediment erythrocyte cou nt by microscopy (number/high power field) NONE NRG Automated urine sediment leukocyte count by microscopy (number/high power field) [HPF] NRG Bacteria detection in urine sediment by light microsco py FEW NRG Squamous epithelial cells detection in u rine sediment by light microscopy 10-25 NRG Crystals detection in urine sediment by light microsco py NONE NRG Casts detection in urine sediment by light microscopy NONE NRG Mucus detection in urine sediment by light microscopy NEGATIVE NRG Complete urinalysis with reflex to culture NO NRG Complete blood count (CBC) with automate d white blood cell (WBC) differential - 09/15/18 17:16 Blood leukocytes automated count (number/volume) 6.3 10*3/uL 4.3-11.0 Blood erythrocytes automated count (number/volume) 4.94 10*6/uL 4.35-5.85 Venous blood hemoglobin measurement (mass/volume) 15.4 g/dL 11.5-16.0 Blood hematocrit (volume fraction) 44 % 35-52 Automated erythrocyte mean corpuscular volume 90 [ foz_us] 80-99 Automated erythrocyte mean corpuscular h emoglobin (mass per erythrocyte) 31 pg 25-34 Automated erythrocyte mean corpuscular h emoglobin concentration measurement (mass/volume) 35 g/dL 32-36 Automated erythrocyte distribution width ratio 12. 0 % 10.0- 14.5 Automated blood platelet count (count/volume) 229 10*3/uL 130-400 Automated blood platelet mean volume measurement 11.5 [foz_us] 7.4-10.4 Automated blood neutrophils/100 leukocytes 49 % 42-75 Automated blood lymphocytes/100 leukocytes 40 % 12-44 Blood monocytes/100 leukocytes 8 % 0-12 Automated blood eosinophils/100 leukocytes 2 % 0-10 Automated blood basophils/100 leukocytes 1 % 0-10 Blood neutrophils automated count (number/volume) 3.1 10*3 1.8-7.8 Blood lymphocytes automated count (number/volume) 2.5 10*3 1.0-4.0 Blood monocytes automated count (number/volume) 0. 5 10*3 0.0-1.0 Automated eosinophil count 0.1 10*3/uL 0 .0-0.3 Automated blood basophil count (count/volume) 0.0 10*3/uL 0.0-0.1 Comprehensive metabolic panel - 09/15/18 17:16 Serum or plasma sodium measurement (moles/volume) 138 mmol/L 135-145 Serum or plasma potassium measurement (moles/volume) 4.1 mmol/L 3.6-5.0 Serum or plasma chloride measurement (moles/volume) 109 mmol/L 98-107 Carbon dioxide 21 mmol/L 21-32 Serum or plasma anion gap determination (moles/volume) 8 mmol/L 5-14 Serum or plasma urea nitrogen measurement (mass/volume ) 8 mg/dL 7-18 Serum or plasma creatinine measurement (mass/volume) 0.72 mg/dL 0.60-1.30 Serum or plasma urea nitrogen/creatinine mass ratio 11 NRG Serum or plasma creatinine measurement w ith calculation of estimated glomerular filtration rate > NRG Serum or plasma glucose measurement (mass/volume) 98 mg/dL 70-105 Serum or plasma calcium measurement (mass/volume) 9.5 mg/dL 8.5-10.1 Serum or plasma total bilirubin measurement (mass/volu me) 0.4 mg/dL 0.1-1.0 Serum or plasma alkaline phosphatase magali surement (enzymatic activity/volume) 49 U/L 40-136 Serum or plasma aspartate aminotransfera se measurement (enzymatic activity/volume) 17 U/L 5-34 Serum or plasma alanine aminotransferase measurement (enzymatic activity/volume) 13 U/L 0-55 Serum or plasma protein measurement (mass/volume) 6.9 g/dL 6.4-8.2 Serum or plasma albumin measurement (mass/volume) 4.2 g/dL 3.2-4.5 CALCIUM CORRECTED 9.3 mg/dL 8.5-10.1 Lipase - 09/15/18 17:16 Lipase 27 U/L 8-78 Serum or plasma C reactive protein measu rement (mass/volume) - 09/15/18 17:16 Serum or plasma C reactive protein measurement (mass/v olume) 0.08 mg/dL 0.00-0.50 Complete urinalysis with reflex to cultu re - 10/12/18 19:25 Urine color determination YELLOW NRG Urine clarity determination CLEAR NR G Urine pH measurement by test strip 6 5-9 Specific gravity of urine by test strip 1.020 1.016-1.022 Urine protein assay by test strip, semi-quantitative NEGATIVE NEGATIVE Urine glucose detection by automated test strip NE GATIVE NEGATIVE Erythrocytes detection in urine sediment by light micr oscopy NEGATIVE NEGATIVE Urine ketones detection by automated test strip NE GATIVE NEGATIVE Urine nitrite detection by test strip NEGATIVE NEGATIVE Urine total bilirubin detection by test strip NEGA TIVE NEGATIVE Urine urobilinogen measurement by automated test strip (mass/volume) NORMAL NORMAL Urine leukocyte esterase detection by dipstick 1+ NEGATIVE Automated urine sediment erythrocyte cou nt by microscopy (number/high power field) NONE NRG Automated urine sediment leukocyte count by microscopy (number/high power field) RARE NRG Bacteria detection in urine sediment by light microsco py FEW NRG Squamous epithelial cells detection in u rine sediment by light microscopy 5-10 NRG Crystals detection in urine sediment by light microsco py NONE NRG Casts detection in urine sediment by light microscopy NONE NRG Mucus detection in urine sediment by light microscopy NEGATIVE NRG Complete urinalysis with reflex to culture NO NRG HIV ANTIGEN/ANTIBODY - 02/02/19 10:59 HIV AG/AB, 4TH GEN NON-REACTIVE NON-BRITTNEE CTIVE SYPHILIS (RPR W/ REFLEX CONFIRMATION) - 02/02/19 10:59 RPR (DX) W/REFL TITER AND CONFIRMATORY TESTING NON-REACTIVE NON-REACTIVE GC/CHLAMYDIA (SWAB OR URINE)-RAPID - 11:02 CHLAMYDIA TRACHOMATIS RNA, TMA NOT DETECTED NOT DETECTED NEISSERIA GONORRHOEAE RNA, TMA NOT DETECTED NOT DETECTED COMMENT NRG SUREPATH PAP AND HPV mRNA E6/E7 - 11:02 CLINICAL INFORMATION: NRG LMP: 3/5/19 NRG PREV. PAP: NRG PREV. BX: NONE GIVEN NRG SOURCE: [employer]erv[employer] NRG STATEMENT OF ADEQUACY: NRG INTERPRETATION/RESULT: NRG AERONAUTICAL ENGINEERING OFFICER: NRG HPV mRNA E6/E7, SUREPATH VIAL Not Detected NOT DETECTED REVIEW AERONAUTICAL ENGINEERING OFFICER: NRG INFECTION: NRG COMMENT NRG Comprehensive Metabolic Panel - 12/03/19 09:12 Albumin 4.4 g/dL 3.6-5.1 ALP 58 U/L 35-130 ALT 13 U/L 6-45 Anion Gap 13 6-14 AST 9 U/L 2-40 BUN 10 mg/dL 5-25 Calcium 10.1 mg/dL 8.3-10.4 Chloride 107 mmol/L 95-114 CO2 24 mEq/L 22-33 Creat 0.83 mg/dL 0.50-1.50 eGFR 79 mL/min/1.73m2 >59 Globulin 2.5 g/dL 2.3-3.5 Glucose 163 mg/dL 70-110 Osmo 291 280-295 Potassium 3.9 mmol/L 3.5-5.3 Sodium 140 mmol/L 134-148 TBil 0.4 mg/dL 0.2-1.2 TP 6.9 g/dL 6.0-8.3 Encounters ACCT No. Visit Date/Time Discharge Status Pt. Type Provider Facility Loc./Unit Complaint [id number] 10/22/2019 08:00:00 10/22/2019 23:59: 59 CLS Outpatient [facility] [id number] 02/02/2019 10:00:00 Document Registration [id number] 02/08/2018 14:30:00 Document Registration [id number] 12/03/2019 09:21:43 12/03/2019 23:59: 59 CLS Outpatient VALENTINA KRAMER [id number] 11/29/2019 09:43:21 11/29/2019 23:59: 59 CLS Outpatient VALENTINA KRAMER [id number] 11/12/2019 08:50:45 11/12/2019 23:59: 59 CLS Outpatient VALENTINA KRAMER [id number] 11/08/2019 15:40:45 11/08/2019 23:59: 59 CLS Outpatient VALENTINA KRAMER [id number] 01/15/2020 08:55:40 ACT Outpatient JILLIAN, VALENTINA Jory [id number] 01/14/2020 16:32:00 17:14:00 DIS Emergency NANCY PRADO MD [facility] ER B/P HIGH [id number] 11/23/2019 11:24:00 14:50:00 DIS Outpatient SERENA LAMBERT [facility] ER SOB DX W PNEUMO WESLEY/RSV [id number] 11/22/2019 13:52:00 23:59:59 CLS Outpatient SID VALENTINA FLANAGAN [facility] RAD ACUTE PELVIC PAIN IN F EMALE,IUD CHECK UP [id number] 10/12/2018 17:59:00 018 20:28:00 DIS Emergency STALINJIN So [facility] ER ABD PAIN [id number] 10/11/2018 10:19:00 23:59:59 CLS Outpatient VALENTINA LAU DO [facility] RAD CHRONIC PELVIC PAIN [id number] 09/15/2018 15:45:00 018 19:00:00 DIS Emergency SERENA LAMBERT [facility] ER ABDOMEN PAIN [id number] 06/29/2018 08:16:00 018 14:15:00 DIS Outpatient GIANLUCA PARRA DO [facility] SDC CHOLELITHIASIS [id number] 06/26/2018 05:47:00 018 14:18:00 DIS Outpatient GIANLUCA PARRA DO B [facility] PREOP CHOLELITHIASIS [id number] 05/26/2018 13:44:00 018 23:59:59 CLS Outpatient AMELIA ANTONIO APRN [facility] RAD RLQ ABD PAIN [id number] 03/26/2018 21:37:00 018 00:13:00 DIS Emergency SERENA LAMBERT [facility] ER L FOOT TOE INJ [id number] 11/28/2017 18:47:00 018 19:45:00 DIS Emergency IFEANYI CHAVES APRN [facility] ER LUMP ON STOMACH, COUGH [id number] 10/07/2017 22:21:00 017 02:20:00 DIS Emergency NANCY PRADO MD [facility] ER R SIDE STOMACH PAIN [id number] 10/03/2017 18:06:00 017 19:55:00 DIS Emergency NANCY PRADO MD [facility] ER LOWER ABD PAIN/BLOOD IN URINE [id number] 06/09/2018 14:00:00 Document Registration [id number] 12/03/2019 09:01:00 12/03/2019 23:59 :00 DIS Outpatient Valentina Kramer [id number] 04/11/2019 18:58:00 04/11/2019 19:32: 00 DIS Outpatient Remedios Albarado [facility] ER [id number] 01/24/2019 23:46:00 01/25/2019 01:05: 00 DIS Outpatient JULIETTE DYE [id number] 12/31/2018 18:38:00 12/31/2018 19:15: 00 DIS Outpatient Ifeanyi Chaves [id number] 10/29/2018 19:13:00 10/29/2018 19:50: 00 DIS Outpatient MADELAINE MUNIZ [facility] ER [id number] 04/20/2018 18:31:00 04/20/2018 19:03: 00 DIS Outpatient Faith Connor [facility] ER [id number] 10/29/2018 19:20:16 Document Registration
== END 2020-01-14 17:14 | disposition home or self-care (01) ==
LOC: EDUNIT# 16:31 → ER 16:32
DX: R51 Headache (principal); J45.909 Unspecified asthma, uncomplicated; Z88.0 Allergy status to penicillin; Z88.5 Allergy status to narcotic agent; Z88.8 Allergy status to other drugs, medicaments and biological substances; Z87.891 Personal history of nicotine dependence; Z86.69 Personal history of other diseases of the nervous system and sense organs
CPT/HCPCS: 84703; 99284

== ENCOUNTER → 2020-02-21 | Outpatient (CLI) | payer MEDICAID ==
--- NOTE | 2020-02-21 11:48 | Diagnostic Imaging Report ---
INDICATION: Amenorrhea x2 months. TECHNIQUE: Multiple real time magaña scale sonographic images were obtained of the pelvis transabdominally and endovaginally. CORRELATION STUDY: None FINDINGS: UTERUS: 10.3 x 3.6 x 5.0 cm. The uterus appears unremarkable. ENDOMETRIUM: 4 mm. The endometrium appearing unremarkable. RIGHT OVARY: 2.9 x 1.9 x 3.0 cm LEFT OVARY: 4.9 x 2.1 x 2.7 cm There are a few small cysts and/or follicles of both ovaries. Likely physiologic. Normal blood flow to the ovaries. No significant free pelvic fluid. IMPRESSION: 1. Unremarkable appearing pelvic ultrasound examination. Dictated by: Dictated on workstation # [id number]
== END ==
LOC: RAD 11:11
PROVIDERS: ATTEND Obstetrics & Gynecology
DX: N91.1 Secondary amenorrhea (principal)
CPT/HCPCS: 76856

== ENCOUNTER 2020-05-11 21:34 | Emergency (ER) | payer MEDICAID ==
[~2020-05-11] VITALS: Ht 167 cm; Wt 92.9 kg
--- OUTSIDE RECORDS SUMMARY | 2020-05-11 21:39 | XMS REPORT ---
Author Author Michelle WALSH Organization [facility] Address [address] [place], [place] [address] Care Team Providers Care Wool Buyer Name Role Phone VALENTINA WALSH PCP VALENTINA [...] by nebulization route 3-4 times per day hydrochlorothiazide 25 mg oral tablet 01/15/2020 04/14/2020 take 1 tablet (25 mg) by oral route once daily for 90 days Name Start Date Expiration Date SIG Comments prednisone 20 mg oral tablet 11/08/2019 11/20/2019 2X4 days 1X4 days 1/2X4 days dexamethasone 4 mg oral tablet 11/30/2019 [...] HC BMI BSA BMI Percentile O2 Sat(%) 03/21/2020 9:22:00 AM 122 mm[Hg] 80 mm[Hg] 88 {beats}/min 16 rpm 99 F 213.437 lbs 98 % 01/15/2020 8:52:00 AM 120 mm[Hg] 88 mm[Hg] 97 {beats}/min 16 rpm 98.6 F 207.125 lbs 97 % 12/03/2019 9:44:00 AM 188 mm[Hg] 90 mm[Hg] [...] Reviewed 11/08/2019 12:00 AM Decadron 8mg Injection, [facility] Medicaid Rev iewed 11/12/2019 12:00 AM Rocephin 1 gram Injection, [facility] Medicaid Reviewed 11/12/2019 12:00 AM THER/PROPH/DIAG INJ SC/IM Reviewed 11/12/2019 12:00 AM Decadron 8mg Injection Reviewed 11/12/2019 12:00 AM THERAPEUTIC PROPHYLACTIC/DX INJECTION [place] BQ/IM Reviewed 11/12/2019 12:00 AM Decadron 8mg Injection, [facility] Medicaid Rev iewed 11/29/2019 12:00 AM THER/PROPH/DIAG INJ SC/IM Reviewed 11/29/2019 12:00 AM Decadron 4mg Injection Reviewed 03/21/2020 12:00 AM Decadron 8mg Injection Reviewed 03/21/2020 12:00 AM Depo-Medrol 80mg Injection Reviewed 03/21/2020 12:00 AM THER/PROPH/DIAG INJ SC/IM Reviewed Results Summary Not available. History Of [...] 9:36AM Encounter for examination following treatment at [facility] 2019 9:36AM Elevated blood pressure reading Jan 15 2020 8:53AM Upper respiratory tract infection, unspecified type Jan 14 8:53AM Seasonal allergies Mar 21 2020 9:23AM Reactive airway disease that is not asthma Mar 21 2020 9:23 AM Chest congestion Mar 21 2020 9:23AM Payers Insurance Name Company Name Plan Name Plan Number Policy Number Gregg cy Group Number Start Date [facility] [id number] N/ A [facility] [id number] N/A History of Encounters Visit Date Visit Type Provider 03/21/2020 Office visit VALENTINA MILLER 01/15/2020 Office visit VALENTINA MILLER 12/03/2019 Office visit VALENTINA MILLER 11/29/2019 Office visit VALENTINA MILLER 11/12/2019 Office visit VALENTINA MILLER 11/08/2019 Office visit VALENTINA MILLER
--- OUTSIDE RECORDS SUMMARY | 2020-05-11 21:39 | XMS REPORT ---
Author Author Michelle WALSH Organization [facility] Address [address] [place], [place] [address] Care Team Providers Care Angiographer Name Role Phone VALENTINA WALSH PCP VALENTINA [...] HC BMI BSA BMI Percentile O2 Sat(%) 01/15/2020 8:52:00 AM 120 mm[Hg] 88 mm[Hg] [...] Reviewed 11/08/2019 12:00 AM Decadron 8mg Injection, [facility] Medicaid Rev iewed 11/12/2019 12:00 AM Rocephin 1 gram Injection, [facility] Medicaid Reviewed 11/12/2019 12:00 AM THER/PROPH/DIAG INJ SC/IM Reviewed 11/12/2019 12:00 AM Decadron 8mg Injection Reviewed 11/12/2019 12:00 AM THERAPEUTIC PROPHYLACTIC/DX INJECTION [place] BQ/IM Reviewed 11/12/2019 12:00 AM Decadron 8mg Injection, [facility] Medicaid Rev iewed 11/29/2019 12:00 AM THER/PROPH/DIAG [...] 9:36AM Encounter for examination following treatment at [facility] 2019 9:36AM Elevated blood pressure reading Jan 15 2020 8:53AM Upper respiratory tract infection, unspecified type Jan 14 8:53AM Payers Insurance Name Company Name Plan Name Plan Number Policy Number Gregg cy Group Number Start Date [facility] [id number] N/A History of Encounters Visit Date Visit Type Provider 01/15/2020 Office visit VALENTINA MILLER 12/03/2019 Office visit VALENTINA MILLER 11/29/2019 Office visit VALENTINA MILLER 11/12/2019 Office visit VALENTINA MILLER 11/08/2019 Office visit VALENTINA MILLER
--- OUTSIDE RECORDS SUMMARY | 2020-05-11 21:40 | XMS REPORT | Continuity of Care Document ---
Author Organization Unknown Address Unknown Phone Unavailable Allergies Active Description Code Type Severity Reaction Onset Reported/Identified Relationship to Patient Clinical Status Yes MORPHINE UNKNOWN UNKNOWN Yes PENICILLINS UNKNOWN UNKNOWN Yes morphine [id number] Drug Allergy Unknown N/A 10/07/2017 Yes Penicillins [id number] Drug Aller gy Unknown N/A 10/07/2017 Yes sertraline [id number] Drug Allerg y Unknown N/A 03/26/2018 Yes morphine [id number] Drug Allergy Mild RED LINES 06/26/2018 Yes Penicillins [id number] Drug Aller gy Mild HIVES 06/26/2018 Yes sertraline [id number] Drug Allerg y Mild STUTTERING 06/26/2018 Medications Medication Packaging Start Date St op Date Route Dosage Sig EYE WASH IRRIGATION LIQ (EYE WASH) cathy 10/29/2018 10/29/2018 ONCE&1920 TETRACAINE EYE DROP DRP 0.5 % drop 10/29/2018 10/29/2018 ONCE&2025 DEXAMETHASONE VIAL INJ 10 MG/CC (DECADRON VIAL) MG 12/31/2018 12/31/2018 ONCE&1851 DEXAMETHASONE VIAL INJ 4 MG/CC (DECADRON V IAL) MG 02/19/2020 02/19/2020 ONCE&211 METHYLPREDNISOLONE VIAL INJ 40 MG/CC (DEPO-medrol VIAL) 02/19/2020 02/19/2020 ONCE&211 DEXAMETHASONE VIAL INJ 4 MG/CC (DECADRON V IAL) MG 02/19/2020 02/19/2020 ONCE&2150 Problems Date Dx Coded Attending Type Code Diagnosis Diagnosed By 10/03/2017 NANCY PRADO MD Ot F17.200 NICOTINE DEPENDENCE, UNSPECIFIED, UNCOMP 10/03/2017 NANCY PRADO MD, Ot J45.909 UNSPECIFIED ASTHMA, UNCOMPLICATED 10/03/2017 NANCY PRADO MD Ot R10. 30 LOWER ABDOMINAL PAIN, UNSPECIFIED 10/03/2017 NANCY PRADO MD Ot Z87. 59 PERSONAL HISTORY OF COMP OF PREG, CHLDBR 10/08/2017 NANCY PRADO MD Ot J45.909 UNSPECIFIED ASTHMA, UNCOMPLICATED 10/08/2017 NANCY PRADO MD Ot R10. 31 RIGHT LOWER QUADRANT PAIN 10/08/2017 NANCY PRADO MD Ot R31. 9 HEMATURIA, UNSPECIFIED 10/08/2017 NANCY PRADO MD Ot Z87. 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 03/28/2018 SERENA [...] K82.4 CHOLESTEROLOSIS OF GALLBLADDER 06/01/2018 AMELIA ANTONIO HEDGE FUND PRINCIPAL Ot K82.4 CHOLESTEROLOSIS OF GALLBLADDER 06/26/2018 Ot [...] LAMBERT Ot J45.909 UNSPECIFIED ASTHMA, UNCOMPLICATED 09/15/2018 JIMMY PA, SERENA L Ot R10.30 LOWER ABDOMINAL PAIN, UNSPECIFIED 09/15/2018 SERENA LAMBERT Ot R10.31 RIGHT LOWER QUADRANT PAIN 09/15/2018 SERENA LAMBERT Ot R10.32 LEFT LOWER QUADRANT PAIN 09/15/2018 SERENA LAMBERT Ot 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 09/15/2018 SERENA [...] QUADRANT PAIN 09/18/2018 SERENA LAMBERT Ot 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 09/18/2018 SERENA LAMBERT Ot Z87.448 PERSONAL HISTORY OF OTHER DISEASES OF UR 09/18/2018 SERENA LAMBERT Ot Z87.891 PERSONAL HISTORY OF NICOTINE DEPENDENCE 09/18/2018 SERENA LAMBERT Ot Z88.0 ALLERGY STATUS TO PENICILLIN 09/18/2018 SERENA LAMBERT Ot Z88.5 ALLERGY STATUS TO NARCOTIC AGENT STATUS 09/18/2018 SERENA LAMBERT Ot Z88.8 ALLERGY STATUS TO OTH DRUG/MEDS/BIOL SUB 09/18/2018 SERENA LAMBERT Ot Z98.890 OTHER SPECIFIED POSTPROCEDURAL STATES 09/25/2018 SERENA LAMBERT Ot G43.909 MIGRAINE, UNSP, NOT INTRACTABLE, WITHOUT 09/25/2018 SERENA LAMBERT Ot J45.909 UNSPECIFIED ASTHMA, UNCOMPLICATED 09/25/2018 SERENA LAMBERT Ot R10.30 LOWER ABDOMINAL PAIN, UNSPECIFIED 09/25/2018 SERENA LAMBERT Ot R10.31 RIGHT LOWER QUADRANT PAIN 09/25/2018 SERENA LAMBERT Ot R10.32 LEFT LOWER QUADRANT PAIN 09/25/2018 SERENA LAMBERT Ot 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 09/25/2018 SERENA [...] Ot Z98.890 OTHER SPECIFIED POSTPROCEDURAL STATES 10/12/2018 VALENTINA LAU DO S Ot R10.2 PELVIC AND PERINEAL PAIN 10/12/2018 STALINJIN JOINTER SUBMARINE CABLE Ot G43.909 MIGRAINE, UNSP, NOT INTRACTABLE, WITHOUT 10/12/2018 STALIN JIN JOINTER SUBMARINE CABLE Ot J45.909 UNSPECIFIED ASTHMA, UNCOMPLICATED 10/12/2018 STALIN, JIN JOINTER SUBMARINE CABLE Ot R10.31 RIGHT LOWER QUADRANT PAIN 10/12/2018 STALIN, JIN JOINTER SUBMARINE CABLE Ot R19.7 DIARRHEA, UNSPECIFIED 10/12/2018 STALIN, JIN JOINTER SUBMARINE CABLE Ot Z79.51 SNF (CURRENT) USE OF INHALED STERO 10/12/2018 STALIN JIN JOINTER SUBMARINE CABLE Ot Z87.448 PERSONAL HISTORY OF OTHER DISEASES OF UR 10/12/2018 STALIN, JIN JOINTER SUBMARINE CABLE Ot Z87.891 PERSONAL HISTORY OF NICOTINE DEPENDENCE 10/12/2018 STALIN, JIN JOINTER SUBMARINE CABLE Ot Z88.0 ALLERGY STATUS TO PENICILLIN 10/12/2018 STALIN, JIN JOINTER SUBMARINE CABLE Ot Z88.5 ALLERGY STATUS TO NARCOTIC AGENT STATUS 10/12/2018 STALIN, JIN JOINTER SUBMARINE CABLE Ot Z88.8 ALLERGY STATUS TO OTH DRUG/MEDS/BIOL SUB 10/12/2018 STALIN, JIN JOINTER SUBMARINE CABLE Ot Z98.890 OTHER SPECIFIED POSTPROCEDURAL STATES 10/16/2018 STALIN, JIN JOINTER SUBMARINE CABLE Ot G43.909 MIGRAINE, UNSP, NOT INTRACTABLE, WITHOUT 10/16/2018 STALIN, JIN JOINTER SUBMARINE CABLE Ot J45.909 UNSPECIFIED ASTHMA, UNCOMPLICATED 10/16/2018 STALIN, JIN JOINTER SUBMARINE CABLE Ot R10.31 RIGHT LOWER QUADRANT PAIN 10/16/2018 STALIN, JIN JOINTER SUBMARINE CABLE Ot R19.7 DIARRHEA, UNSPECIFIED 10/16/2018 STALIN, JIN JOINTER SUBMARINE CABLE Ot 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 10/16/2018 STALIN, JIN JOINTER SUBMARINE CABLE Ot Z87.448 PERSONAL HISTORY OF OTHER DISEASES OF UR 10/16/2018 STALIN, JIN JOINTER SUBMARINE CABLE Ot Z87.891 PERSONAL HISTORY OF NICOTINE DEPENDENCE 10/16/2018 STALIN, JIN JOINTER SUBMARINE CABLE Ot Z88.0 ALLERGY STATUS TO PENICILLIN 10/16/2018 STALIN, JIN JOINTER SUBMARINE CABLE Ot Z88.5 ALLERGY STATUS TO NARCOTIC AGENT STATUS 10/16/2018 STALIN, JIN JOINTER SUBMARINE CABLE Ot Z88.8 ALLERGY STATUS TO OTH DRUG/MEDS/BIOL SUB 10/16/2018 STALIN, JIN JOINTER SUBMARINE CABLE Ot Z98.890 OTHER SPECIFIED POSTPROCEDURAL STATES 10/29/2018 MADELAINE MUNIZ 918.1 SUPERFICIAL INJURY OF CORNEA 10/29/2018 MADELAINE MUNIZ S05.0 1XA INJ CONJUNCTIVA AND CORNEAL ABRASION W/O FB, RIGHT EYE, INIT 11/01/2018 VALENTINA LAU DO S Ot R10.2 PELVIC AND PERINEAL PAIN 12/31/2018 Ifeanyi Szymanski 466.0 ACUTE BRONCHITIS 12/31/2018 Ifeanyi Szymanski J20.9 ACUTE BRONCHITIS, UNSPECIFIED 01/25/2019 JULIETTE DYE S63.655D SPRAIN OF METACARPOPHALANGEAL JOINT OF LEFT RING FINGER, SUBSEQUENT ENCOUNTER 01/25/2019 JULIETTE DYE V58.89 ENCOUNTER FOR OTHER SPECIFIED AFTERCARE 01/25/2019 JULIETTE DYE W 842.12 SPRAIN OF METACARPOPHALANGEAL (JOINT) OF HAND 01/25/2019 JULIETTE DYE W S63.655A SPRAIN OF MCP JOINT OF LEFT RING FINGER, INIT 04/11/2019 Remedios Albarado W 923.10 CONTUSION OF FOREARM 04/11/2019 Remedios Albarado W S50.12 XA CONTUSION OF LEFT FOREARM, INITIAL ENCOUNTER 11/22/2019 AMELIA ANTONIO HEDGE FUND PRINCIPAL Ot K82.4 CHOLESTEROLOSIS OF GALLBLADDER 11/22/2019 Ot R10.9 UNSP ECIFIED ABDOMINAL PAIN 11/22/2019 FENECH DO, VALENTINA S Ot R10.2 PELVIC AND PERINEAL PAIN 11/23/2019 FENECH DO, VALENTINA S Ot R10.2 PELVIC AND PERINEAL PAIN 11/23/2019 FENECH DO, VALENTINA S Ot Z30.431 ENCOUNTER [...] ALLERGY STATUS TO OTH DRUG/MEDS/BIOL SUB 11/27/2019 FENECH DO, VALENTINA S Ot R10.2 PELVIC AND PERINEAL PAIN 11/27/2019 FENECH DO, VALENTINA S Ot Z30.431 ENCOUNTER FOR ROUTINE CHECKING OF INTRAU 11/27/2019 FENECH DO, VALENTINA S Ot R10.2 PELVIC AND PERINEAL PAIN 11/27/2019 FENECH DO, VALENTINA S Ot Z30.431 ENCOUNTER FOR ROUTINE CHECKING OF INTRAU 12/06/2019 FENECH DO, VALENTINA S Ot R10.2 PELVIC AND PERINEAL PAIN 12/06/2019 FENECH DO, VALENTINA S Ot Z30.431 ENCOUNTER FOR ROUTINE CHECKING OF INTRAU 01/14/2020 NANCY PRADO MD Ot J45.909 UNSPECIFIED ASTHMA, UNCOMPLICATED 01/14/2020 NANCY PRADO MD Ot R51 HEADACHE 01/14/2020 NANCY PRADO MD Ot Z86. 69 PERSONAL HISTORY OF DIS OF THE NERVOUS S 01/14/2020 NANCY PRADO MD Ot Z87.891 PERSONAL HISTORY OF NICOTINE DEPENDENCE 01/14/2020 NANCY PRADO MD, Ot Z88. 0 ALLERGY STATUS TO PENICILLIN 01/14/2020 NANCY PRADO MD Ot Z88. 5 ALLERGY STATUS TO NARCOTIC AGENT STATUS 01/14/2020 NANCY PRADO MD, Ot Z88. 8 ALLERGY STATUS TO OTH DRUG/MEDS/BIOL SUB 02/19/2020 Randolph Carr 989.5 TOXIC EFFECT OF VENOM 02/19/2020 Randolph Carr J20.9 ACUTE BRONCHITIS, UNSPECIFIED 02/19/2020 Randolph Carr S05.01XA INJ CONJUNCTIVA AND CORNEAL ABRASION W/O FB, RIGHT EYE, INIT 02/19/2020 Randolph Carr S50.12XA CONTUSION OF LEFT FOREARM, INITIAL ENCOUNTER 02/19/2020 Randolph Carr S63.655A SPRAIN OF MCP JOINT OF LEFT RING FINGER, INIT 02/19/2020 Randolph Carr S90.01XA CONTUSION OF RIGHT ANKLE, INITIAL ENCOUNTER 02/19/2020 Randolph Carr T63.461A TOXIC EFFECT OF VENOM OF WASPS, ACCIDENTAL, INIT 02/[facility] VALENTINA Sales Ot N91.1 SECONDARY AMENORRHEA 02/28/2020 [facility] VALENTINA FLANAGAN Ot N91.1 SECONDARY AMENORRHEA Procedures There is no data. Results Test [...] E6/E7 - 11:02 CLINICAL INFORMATION: NRG LMP: 01/09/19 NRG PREV. PAP: NRG PREV. BX: NONE GIVEN NRG SOURCE: Cervix NRG STATEMENT OF ADEQUACY: NRG INTERPRETATION/RESULT: NRG TOBACCO BUYER: CURTIS HPV mRNA E6/E7, SUREPATH VIAL Not Detected NOT DETECTED REVIEW TOBACCO BUYER: CURTIS INFECTION: NRG COMMENT NR Comprehensive Metabolic Panel - 12/03/19 09:12 Albumin [...] 0.4 mg/dL 0.2-1.2 TP 6.9 g/dL 6.0-8.3 Test-Urine - 02/19/20 20:58 Preg Test-U Negative Negative Encounters ACCT No. Visit Date/Time Discharge Status Pt. Type Provider Facility Loc./Unit Complaint [id number] 10/22/2019 08:00:00 10/22/2019 23:59: 59 CLS Outpatient LUCIE LOUISE [facility] [id number] 02/02/2019 10:00:00 Document Registration [id number] 02/08/2018 14:30:00 Document Registration [id number] 03/21/2020 09:45:54 03/21/2020 23:59: 59 CLS Outpatient VALENTINA KRAMER [id number] 01/15/2020 08:55:40 01/15/2020 23:59: 59 CLS Outpatient VALENTINA KRAMER [id number] 12/03/2019 09:21:43 12/03/2019 23:59: 59 CLS Outpatient VALENTINA KRAMER [id number] 11/29/2019 09:43:21 11/29/2019 23:59: 59 CLS Outpatient VALENTINA KRAMER [id number] 11/12/2019 08:50:45 11/12/2019 23:59: 59 CLS Outpatient VALENTINA KRAMER [id number] 11/08/2019 15:40:45 11/08/2019 23:59: 59 CLS Outpatient JILLIAN VALENTINA Corley [id number] 02/21/2020 11:11:00 23:59:59 CLS Outpatient VALENTINA LAU DO [facility] RAD SECONDARY AMENORRHEA [id number] 01/14/2020 16:32:00 17:14:00 DIS Emergency NANCY PRADO MD [facility] ER B/P HIGH [id number] 11/23/2019 11:24:00 14:50:00 DIS Outpatient SERENA LAMBERT [facility] ER SOB DX W PNEUMO WESLEY/RSV [id number] 11/22/2019 13:52:00 23:59:59 CLS Outpatient SDI VALENTINA [facility] RAD ACUTE PELVIC PAIN IN F EMALE,IUD CHECK UP [id number] 10/12/2018 17:59:00 018 20:28:00 DIS Emergency JIN GANT [facility] ER ABD PAIN [id number] 10/11/2018 10:19:00 018 23:59:59 CLS Outpatient CLEOKHRIS DO VALENTINA Henrry [facility] RAD CHRONIC PELVIC PAIN [id number] 09/15/2018 15:45:00 018 19:00:00 DIS Emergency SERENA LAMBERT [facility] ER ABDOMEN PAIN [id number] 06/29/2018 08:16:00 018 14:15:00 DIS Outpatient GIANLUCA PARRA DO [facility] SDC CHOLELITHIASIS [id number] 06/26/2018 05:47:00 018 14:18:00 DIS Outpatient GIANLUCA PARRA DO [facility] PREOP CHOLELITHIASIS [id number] 05/26/2018 13:44:00 018 23:59:59 CLS Outpatient AMELIA ANTONIO APRN [facility] RAD RLQ ABD PAIN [id number] 03/26/2018 21:37:00 018 00:13:00 DIS Emergency SERENA LAMBERT [facility] ER L FOOT TOE INJ [id number] 11/28/2017 18:47:00 018 19:45:00 DIS Emergency IFEANYI SZYMANSKI HEDGE FUND PRINCIPAL [facility] ER LUMP ON STOMACH, COUGH [id number] 10/07/2017 22:21:00 017 02:20:00 DIS Emergency JOHAN JADE, NANCY Massey [facility] ER R SIDE STOMACH PAIN [id number] 10/03/2017 18:06:00 017 19:55:00 DIS Emergency JOHAN JADE, NANCY Massey [facility] ER LOWER ABD PAIN/BLOOD IN URINE [id number] 06/09/2018 14:00:00 Document Registration [id number] 02/19/2020 19:29:00 02/19/2020 21:30 :[address] [facility] ER [id number] 12/03/2019 09:01:00 12/03/2019 23:59 :00 DIS Outpatient Valentina Kramer [id number] 04/11/2019 18:58:00 04/11/2019 19:32: 00 DIS Outpatient Remedios Albarado [facility] ER [id number] 01/24/2019 23:46:00 01/25/2019 01:05: 00 DIS Outpatient MARNIEJULIETTE [id number] 12/31/2018 18:38:00 12/31/2018 19:15: 00 DIS Outpatient Ifeanyi Szymanski [id number] 10/29/2018 19:13:00 10/29/2018 19:50: 00 DIS Outpatient MADELAINE MUNIZ [facility] ER [id number] 04/20/2018 18:31:00 04/20/2018 19:03: 00 DIS Outpatient Faith Connor [facility] ER [id number] 10/29/2018 19:20:16 Document Registration
--- NOTE | 2020-05-11 22:01 | ED Lower Extremity ---
General Stated Complaint: R ANKLE INJ Source: patient Exam Limitations: no limitations History of Present Illness Date Seen by Provider: May 11, 2020 Time Seen by Provider: 22:02 Initial Comments To ER with right lateral ankle pain after she stepped in a hole while carrying her 70 pound son just prior to arrival. She has been unable to bear weight on this since the event. Onset: just prior to arrival Severity: moderate Pain/Injury Location: right ankle Method of Injury: fell Modifying Factors: Worse With Movement Allergies and Home Medications Allergies Coded Allergies: Penicillins (Verified Allergy, Mild, HIVES, 06/26/18) morphine (Verified Allergy, Mild, RED LINES, 06/26/18) sertraline (Unverified Allergy, Mild, STUTTERING, 06/26/18) Home Medications Albuterol Sulfate 1 Puff Puff, 2 PUFF IH Q4H, (Reported) 1 PUFF = 90 MCG Albuterol Sulfate 2.5 Mg/3 Ml Vial.neb, 2.5 MG INH Q4H PRN for WHEEZING Prescribed by: SERENA MARQUEZ on 11/23/19 1442 Hydrocodone Bit/Acetaminophen 1 Tab Tab, 1 TAB PO Q6H PRN Prescribed by: GIANLUCA PARRA on 06/29/18 1157 Prednisone 20 Mg Tab, 40 MG PO DAILY Prescribed by: SERENA MARQUEZ on 11/23/19 1442 Patient Home Medication List Home Medication List Reviewed: Yes Review of Systems Constitutional: see HPI EENTM: see HPI Respiratory: no symptoms reported Cardiovascular: no symptoms reported Genitourinary: no symptoms reported Musculoskeletal: see HPI Skin: no symptoms reported Psychiatric/Neurological: No Symptoms Reported Past Fbatpgo-Kffeew-Zboojt Hx Patient Social History Type Used: Cigarettes Former Smoker, Quit: Jun 26, 2007 2nd Hand Smoke Exposure: No Recent Foreign Travel: No Contact w/Someone Who Travel: No Recent Hopitalizations: No Immunizations Up To Date Tetanus Booster (TDap): Less than 5yrs Date of Influenza Vaccine: Aug 22, 2017 Seasonal Allergies Seasonal Allergies: No Past Medical History Surgeries: Yes (CS X2) Section, Gallbladder Respiratory: Yes (SCAROIDOSIS) Asthma Cardiac: No Neurological: Yes Headaches /Migraines Reproductive Disorders: No Female Reproductive Disorders: Ovarian Cyst SURGICAL ASST History: IUD Sexually Transmitted Disease: No HIV/AIDS: No Genitourinary: No Gastrointestinal: Yes Gall Bladder Disease Musculoskeletal: No Endocrine: Yes (sarcoidosis) HEENT: No Loss of Vision: Bilateral Cancer: No Psychosocial: No Integumentary: No Blood Disorders: No Adverse Reaction/Blood Tranf: No (N/A) Family Medical History No Pertinent Family Hx Physical Exam Vital Signs Capillary Refill : Height, Weight, BMI Height: 5'8.00" Weight: 170lbs. 0.0oz. 77.827530on; 33.00 BMI Method:Stated General Appearance: WD/WN, no apparent distress Neck: non-tender, full range of motion Respiratory: no respiratory distress, no accessory muscle use Hips: bilateral hip non-tender, bilateral hip normal inspection, bilateral hip normal range of motion Legs: bilateral leg non-tender, bilateral leg normal inspection, bilateral leg normal range of motion Knees: bilateral knee non-tender, bilateral knee normal inspection, bilateral knee normal range of motion Ankles: right ankle pain, right ankle soft tissue tenderness, right ankle swelling (impressionable swelling over the lateral malleolus. Strong dorsalis pedis pulse.) Feet: bilateral foot non-tender, bilateral foot normal inspection, bilateral foot normal range of motion Neurologic/Psychiatric: alert, normal mood/affect, oriented x 3 Skin: normal color, warm/dry Progress/Results/Core Measures Results/Orders My Orders Orders - IFEANYI SZYMANSKI APRN Ankle, Right, 3 Views (05/11/20 22:01) Rx-Hydrocodone/Apap 5-325 Mg (Rx-Vicodin (05/11/20 22:15) Crutches (05/11/20 22:11) Departure Impression Primary Impression: Sprain and strain of ankle Disposition: 01 HOME, SELF-CARE Condition: Stable Departure-Patient Inst. Decision time for Depature: 22:13 Referrals: VALENTINA WALSH (PCP/Family) Primary Care Physician Patient Instructions: Ankle Sprain Add. Discharge Instructions: . Elevate the foot as much as possible 2. Ice pack to the area 3. Use the crutches as needed for pain with walking. When you are able to bear weight without significant pain then you can quit using the crutches. Follow-up with your doctor later this week for recheck for any persistent or worsening symptoms. Work/School Note: Work Release Form Date Seen in the Emergency Department: May 11, 2020 Return to Work: May 14, 2020 IFEANYI SZYMANSKI APRN May 11, 2020 22:01
[2020-05-11] MEDS ORDERED: RX-HYDROCODONE/APAP 5/325 MG #4 TAB PK PO PRN (22:15)
[2020-05-11 22:31] VITALS: BP 146/97
--- NOTE | 2020-05-12 05:23 | Diagnostic Imaging Report ---
EXAMINATION: Right ankle, 3 views INDICATION: Traumatic right ankle pain. COMPARISON: None available. FINDINGS: No fracture or acute osseous abnormality. Bony alignment is maintained. The ankle mortise is intact, including medial and lateral clear space. No osteochondral lesion of the talar dome. Mild degenerative changes noted in the dorsum of the midfoot. Incidental note is made of a small plantar calcaneal spur. Soft tissues are unremarkable. IMPRESSION: No acute fracture or dislocation. Dictated by: Dictated on workstation # [id number]
== END 2020-05-11 22:44 | disposition home or self-care (01) ==
LOC: EDUNIT# 21:34 → ER 21:35
DX: S93.401A Sprain of unspecified ligament of right ankle, initial encounter (principal); J45.909 Unspecified asthma, uncomplicated; W17.2XXA Fall into hole, initial encounter; Z88.0 Allergy status to penicillin; Z88.5 Allergy status to narcotic agent; Z88.8 Allergy status to other drugs, medicaments and biological substances; Z79.899 Other long term (current) drug therapy; Z87.891 Personal history of nicotine dependence; G43.909 Migraine, unspecified, not intractable, without status migrainosus; Z79.3 Long term (current) use of hormonal contraceptives
CPT/HCPCS: 73610

== ENCOUNTER 2021-06-15 05:38 | Outpatient (CLI) | payer MEDICAID ==
[~2021-06-15] VITALS: Ht 170.2 cm; Wt 93.4 kg
== END 2021-06-15 09:06 | disposition home or self-care (01) ==
LOC: PREOP 05:38
PROVIDERS: ATTEND Obstetrics & Gynecology
DX: Z01.818 Encounter for other preprocedural examination (principal)

== ENCOUNTER 2021-06-22 06:53 | Day surgery (SDC) | payer MEDICAID ==
[~2021-06-22] VITALS: Ht 170.2 cm; Wt 91.9 kg
[2021-06-22] VITALS (8 sets, daily range): BP systolic 102–130; BP diastolic 47–76
[2021-06-22] MEDS ORDERED: BUPIVACAINE 0.25% 30 ML (SENSORCAINE) VIAL ONE (07:30)
[2021-06-22 07:45] LABS: BASOPHILS % (AUTO) 1 % (0-10); EOSINOPHILS % (AUTO) 1 % (0-10); HEMATOCRIT 42 % (35-52); HEMOGLOBIN 14.3 g/dL (11.5-16.0); LYMPHOCYTES # (AUTO) 1.8 10^3/uL (1.0-4.0); LYMPHOCYTES % (AUTO) 32 % (12-44); MEAN CORPUSCULAR HEMOGLOBIN 31 pg (25-34); MEAN CORPUSCULAR HGB CONC 34 g/dL (32-36); MEAN CORPUSCULAR VOLUME 90 fL (80-99); MEAN PLATELET VOLUME 12.1 fL (9.0-12.2); MONOCYTES # (AUTO) 0.4 10^3/uL (0.0-1.0); MONOCYTES % (AUTO) 8 % (0-12); NEUTROPHILS # (AUTO) 3.2 10^3/uL (1.8-7.8); NEUTROPHILS % (AUTO) 58 % (42-75); PLATELET COUNT 262 10^3/uL (130-400); WHITE BLOOD COUNT 5.5 10^3/uL (4.3-11.0)
[2021-06-22] MEDS ORDERED: ceFAZolin 2 GM IV Premixed 50 ML IV ONE (07:45)
[2021-06-22] MEDS ORDERED: LACTATED RINGERS 1,000 ML IV PRN (07:45)
[2021-06-22] MEDS ORDERED: metroNIDAZOLE 500MG/100ML IVPB 100 ML IV ONE (07:45)
[2021-06-22] MEDS ORDERED: proPOfol 200 MG/20 ML (DIPRIVAN) VIAL IV ONE (07:50)
[2021-06-22] MEDS ORDERED: ONDANSETRON 4 MG/2 ML (SDV) Z0FRAN ONE (07:50)
[2021-06-22] MEDS ORDERED: ROCURONIUM 10 MG/ML 5 ML SYRINGE IV ONE (07:50)
[2021-06-22] MEDS ORDERED: LIDOCAINE PF 2% 5 ML (XYLOCAINE) VIAL ONE (07:52)
[2021-06-22] MEDS ORDERED: MIDAZOLAM 2 MG/2 ML (VERSED) VIAL ONE (07:52)
[2021-06-22] MEDS ORDERED: fentaNYL INJ 100 MCG/2 ML AMP ONE ×2 (07:53→09:51)
--- NOTE | 2021-06-22 08:45 | Progress Note-Pre Operative ---
Pre-Operative Progress Note H&P Reviewed The H&P was reviewed, patient examined and no changes noted. Date Seen by Provider: Jun 22, 2021 Time Seen by Provider: 08:25 Date H&P Reviewed: Jun 22, 2021 Time H&P Reviewed: 08:30 Pre-Operative Diagnosis: CPP, Dysmenorrhea, Dyspareunia VALENTINA LAU DO Jun 22, 2021 08:45
--- NOTE | 2021-06-22 08:48 | Discharge Inst-Women's Service ---
Discharge Inst-Women's Serv Depart Medication/Instructions New, Converted or Re-Newed RX: RX on Chart Problems Reviewed?: Yes Consults/Follow Up Additional Follow Up: Yes Orders/Referrals Dr. Whitley or Ivelisse in 7-10 days, Dr. Whitley in 8 weeks Activity Activity: Activity as Tolerated Driving Instructions: No Driving for 1 Week NO SMOKING: NO SMOKING Nothing Inside Vagina: No Douching, No [place], No Tampons Diet Discharge Diet: No Restrictions Symptoms to Report to : Bleeding Excessive, Pain Increased, Fever Over 101 Degrees F, Vaginal Bleeding Increase, Questions/Concerns For Any Problems or Questions: Contact Your Physician Skin/Wound Care Infection Signs and Symptoms: Increased Redness, Foul Odor of Wound, Increased Drainage, Skin Itchy or Has a Rash, Increased Swelling, Temperature Above 101 F Operative Area Clean and Dry: Keep Incision Clean/Dry Stitches/Devan/Dermabond: Dermabond, Care of Stitches Bathing Instructions: VALENTINA Richard DO Jun 22, 2021 08:48
[2021-06-22] MEDS ORDERED: HYDR-34 PO (08:49)
[2021-06-22] MEDS ORDERED: DCS100C PO (08:49)
[2021-06-22] MEDS ORDERED: IBUP-844 PO (08:49)
[2021-06-22] MEDS ORDERED: BENZ1LOZ64 MM (08:49)
[2021-06-22] MEDS ORDERED: DOCUSATE SODIUM 100 MG (COLACE) CAP PO PRN (09:00)
[2021-06-22] MEDS ORDERED: SIMETHICONE 80 MG (MYLICON) CHEW PO PRN (09:00)
[2021-06-22] MEDS ORDERED: NALOXONE 0.4 MG/ML 1 ML (NARCAN) VIAL IV PRN (09:00)
[2021-06-22] MEDS ORDERED: KETOROLAC 30 MG/ML VIAL IVP PRN (09:00)
[2021-06-22] MEDS ORDERED: CHLORASEPTIC LOZENGE MM PRN (09:00)
[2021-06-22] MEDS ORDERED: ZOLPIDEM 5 MG (AMBIEN) TAB PO PRN (09:00)
[2021-06-22] MEDS ORDERED: ANTACID SUSP 30 ML UDC (MYLANTA) PO PRN (09:00)
[2021-06-22] MEDS ORDERED: ONDANSETRON 4 MG/2 ML (SDV) Z0FRAN IV PRN (09:00)
[2021-06-22] MEDS ORDERED: HYDROcodone/APAP 7.5 MG/325 MG (LORTAB, LORCET PLUS) TABLET PO PRN (09:00)
[2021-06-22] MEDS ORDERED: KETOROLAC 30 MG/ML VIAL ONE (09:48)
[2021-06-22] MEDS ORDERED: GLYCOPYRROLATE 0.2 MG/ML (ROBINUL) 2 ML VIAL ONE (09:51)
[2021-06-22] MEDS ORDERED: NEOSTIGMINE 3 MG/3 ML VIAL ONE (09:51)
[2021-06-22] MEDS: LACTATED RINGERS 1,000 ML IV SCH ×2 (09:58→11:37)
[2021-06-22] MEDS ORDERED: SEVOFLURANE (ULTANE) 15 ML INHAL SOLN ONE ×2 (10:09→10:10)
[2021-06-22] MEDS ORDERED: MEPERIDINE (DEMEROL) INJ 50 MG/ML IVP ONE (11:00)
[2021-06-22] MEDS ORDERED: fentaNYL INJ 100 MCG/2 ML AMP IVP ONE (11:00)
[2021-06-22] MEDS ORDERED: ONDANSETRON 4 MG/2 ML (SDV) Z0FRAN IVP PRN (11:00)
[2021-06-22] MEDS ORDERED: HYDROcodone/APAP 7.5 MG/325 MG (LORTAB, LORCET PLUS) TABLET PO ONE (11:35)
--- NOTE | 2021-06-22 13:16 | Anesthesia-General Post-Op ---
General Patient Condition Mental Status/LOC: Same as Preop Cardiovascular: Satisfactory Nausea/Vomiting: Absent Respiratory: Satisfactory Pain: Controlled Complications: Absent Post Op Complications Complications None Follow Up Care/Instructions Patient Instructions None needed. Anesthesia/Patient Condition Patient Condition Patient is doing well, no complaints, stable vital signs, no apparent adverse anesthesia problems. No complications reported per nursing. SONALI ALBARADO CRNA Jun 22, 2021 13:16
--- NOTE | 2021-06-22 23:07 | OPERATIVE REPORT ---
DATE OF SERVICE: PREOPERATIVE DIAGNOSES: 1. A 36-year-old female with chronic pelvic pain. 2. Dysmenorrhea. 3. Dyspareunia. POSTOPERATIVE DIAGNOSES: 1. A 36-year-old female with chronic pelvic pain. 2. Dysmenorrhea. 3. Dyspareunia. PROCEDURE: Robotic-assisted total laparoscopic hysterectomy with bilateral salpingectomy. SURGEON: Isaac Lau DO NEON TUBE BENDER: Ivelisse Matos DNP, was necessary for manipulation and retraction throughout the procedure. ANESTHESIA: General endotracheal. ESTIMATED BLOOD LOSS: Minimal. URINE OUTPUT: 200 mL clear at the end of procedure. FLUIDS: 1700 mL of lactated Ringer's solution. FINDINGS: Normal appearing uterus, bilateral fallopian tubes and ovaries. SPECIMEN SENT: Uterus, bilateral fallopian tubes. INDICATIONS FOR PROCEDURE: This 36-year-old female is a patient, who had tried conservative measures in the past, multiple measures in fact to try and deal with her chronic pelvic pain and pain with intercourse. The patient progressed with worsening symptoms over the past 4 to 5 years as I have been taking care of her. At this point, she had become extremely frustrated and is wishing to proceed with hysterectomy. She believes this will alleviate some of her symptoms at least correct some of her bleeding and pain with intercourse and pain with periods. Risk of hysterectomy was reviewed with the patient in detail including risk of bleeding, infection, damage to surrounding structures including, but not limited to bowel, bladder, ureter, kidneys, possible need for operation, postoperative complications that may occur, risk from anesthesia, recovery timeframe and even . After everything was discussed with the patient in detail, consent was obtained in the preoperative area, the patient was taken to the operating room. OPERATIVE REPORT IN DETAIL: Once in the operating room, general anesthesia was found to be adequate. She was placed in the dorsal lithotomy position, prepped and draped in normal sterile fashion. A timeout was performed. Thomas catheter was placed using sterile technique. A weighted speculum inserted into the patient's vagina. Right angle retractor was used to visualize the cervix. It was grasped at 12 o'clock position using a long Allis clamp and 0 Vicryl suture was then placed anterior lip of the cervix and Allis clamp was then removed. The Vicryl suture was then used as my retraction point on the cervix. I then gently sound the uterine cavity, depth was found to be 8 cm. I selected an 8 cm PJ uterine manipulator tip and 3.5 cm colpotomy ring placed in the manipulator tip into the uterus deploying the balloon and advancing the colpotomy ring around the vaginal fornix. I then performed a change of gloves after I removed all the other instruments from the patient's vagina. I then took my attention to the abdomen where the midclavicular line on the left side subcostally. I introduced a Veress needle until intraperitoneal placement was confirmed using saline drop test. An opening pressure of 2 mmHg was noted, proceeded to maximum pressure of 15 mmHg, at which point I infiltrated the infraumbilical area using 0.25% Marcaine to make an 8 mm incision with a knife and directed Rocio camera trocar through this incision until intraperitoneal placement was confirmed using the da Rocio laparoscope. A brief scan of the upper abdominal anatomy appears to be normal. There was no evidence of damage upon the entry site of the Veress needle and the Veress needle was then removed. I then have the patient placed in steep Trendelenburg and made visualize all my pelvic anatomy was defined in my findings above. I placed two lateral trocars approximately 8 cm lateral to my infraumbilical trocar. These were both 8 mm trocars. The skin was infiltrated using 0.25% Marcaine. Incisions were made with a knife and trocars were placed under direct visualization and laparoscope. Once both these trocars were in place, I bring in the da Rocio robot and docked in appropriate fashion placing the finger still in the left hand and monopolar derick in the right hand performed the following dissection bilaterally, starting at the uteroovarian ligament, I sealed and transected using the SynchroSeal, then created a window in the mesosalpinx and took this down the mesosalpinx amputating the fallopian tube from its surrounding blood supply. I then grasped the round ligament, which I sealed and transect using the SynchroSeal, then grasped the broad ligament, which I sealed and transected using the SynchroSeal, down to the level of the lower uterine segment, at which point I the anterior and posterior leaflets of the broad ligament. The anterior leaflet dissection was taken around the anterior vaginal fornix and posterior leaflets was taken around the posterior vaginal fornix. This allows me to skeletonize the uterine vessels laterally, which I sealed and transected using the SynchroSeal device. I then created a colpotomy at 12 o'clock position using monopolar derick and took this circumferentially around the vaginal fornix amputating the cervix away from the vagina. The entire specimen was then removed through the vagina. I then closed the lateral vaginal apices of the vaginal cuff using 2-0 Vicryl suture in a [id number] fashion colposuspending them to the uterosacral ligaments. I closed the remainder of the vaginal cuff using 2-0 V-Loc in a running fashion, after which there was no active bleeding noted from any of my dissection planes. I then undocked the da Rocio robot and proceeded with remainder of the case laparoscopically. I copiously irrigated the pelvis using normal saline. Once again, no active bleeding noted from any of my dissection planes. The ureters were identified bilaterally and found to be clear of my dissection planes and peristalsing normally. After which I cover my planes of dissection using FloSeal hemostatic agent to ensure excellent postoperative hemostasis, then I had the patient taken out of steep Trendelenburg where I released insufflation and removed the lateral trocars under direct visualization of the laparoscope, the infraumbilical trocars left in place to release insufflation that was remaining inside and then to introduce 10 mL of 0.25% Marcaine into the peritoneal cavity for postoperative pain management and then removed this trocar as well. The skin reapproximated using 4-0 Monocryl in interrupted subcuticular stitches. Dermabond was applied to the incisions and Band-Aids were placed over the incisions as well. Thomas catheter was left in place. The patient tolerated the procedure well and sent to recovery area in stable condition. Lap and sponge count was correct at the end of the procedure. Instrument counts correct as well. Two grams of Ancef, 500 mg of Flagyl were given preoperatively for infection prophylaxis. Job ID: [id number] DocumentID: [id number] Dictated Date: 06/22/2021 13:37:03 Forensics Team Director Date: 06/22/2021 23:06:42 Dictated By: ISAAC LAU DO
[2021-06-27] MEDS ORDERED: IBUPROFEN 600 MG (MOTRIN) TAB PO SCH (12:00)
== END 2021-06-22 16:45 | disposition home or self-care (01) ==
LOC: SDC 06:53 → WS 11:24 → SDC 16:45
PROVIDERS: ATTEND Obstetrics & Gynecology
DX: N94.6 Dysmenorrhea, unspecified (principal); N94.10 Unspecified dyspareunia; N93.9 Abnormal uterine and vaginal bleeding, unspecified; N94.5 Secondary dysmenorrhea; N94.12 Deep dyspareunia; G89.29 Other chronic pain; I10 Essential (primary) hypertension; J45.909 Unspecified asthma, uncomplicated; G43.909 Migraine, unspecified, not intractable, without status migrainosus; D86.9 Sarcoidosis, unspecified; F90.9 Attention-deficit hyperactivity disorder, unspecified type; Z79.891 Long term (current) use of opiate analgesic; Z87.891 Personal history of nicotine dependence; Z90.49 Acquired absence of other specified parts of digestive tract; Z79.899 Other long term (current) drug therapy; Z80.1 Family history of malignant neoplasm of trachea, bronchus and lung
CPT/HCPCS: 36415; 84703; 85025; 86850; 86900; 86901; 87081

== ENCOUNTER → 2023-03-24 | Outpatient (CLI) | payer MEDICAID ==
[~2023-03-24] VITALS: Ht 170.2 cm; Wt 85.0 kg
[~2023-03-24] MED LIST changes: +ALBU8.5H6 IH; +BENZ1LOZ64 MM; +DOCU-239 PO; +GADOTERATE 0.5 MMOL/ML (CLARISCAN) 15 ML VIAL IV ONE; +HOLD METFORMIN - RECEIVED CONTRAST 20 ML VIAL IV SCH; +HYDR-34 PO; +IBUP-844 PO; +IOHEXOL 300 MG/ML 50 ML (OMNIPAQUE 300) VIAL IV ONE; +LIDOCAINE 1% INJ 10 ML VIAL INJ ONE; +LIDOCAINE 1% INJ 10 ML VIAL ONE; -RT-ALBUINH IH
--- NOTE | 2023-03-24 12:31 | Diagnostic Imaging Report ---
INDICATION: Left shoulder pain After explaining the planned procedure and associated risks to the patient, informed consent was obtained. Maximal sterile barrier and fluoroscopic guidance were utilized for needle placement into the left shoulder joint. Dilute gadolinium contrast was then injected. Patient tolerated the procedure well and was taken to the MRI suite for MR arthrography. Fluoroscopy time was 7.8 seconds. IMPRESSION: Fluoroscopically guided left shoulder joint injection prior to MR arthrography. Dictated by: Dictated on workstation # [id number]
--- NOTE | 2023-03-24 13:30 | Diagnostic Imaging Report ---
PROCEDURE: MRI left joint upper extremity with contrast. TECHNIQUE: Multiplanar, multisequence contrast-enhanced MRI of the left upper extremity was accomplished. INDICATION: Left shoulder pain COMPARISON: None FINDINGS: No acute fracture seen in the left shoulder. Alignment is normal. The joint is well distended with contrast. The supraspinatus tendon is intact. The infraspinatus and teres minor tendons are intact. The subscapularis tendon is intact. There is no muscular atrophy. The long head of the biceps tendon appears normal in course. There may be a small intrasubstance longitudinal split tear near the biceps anchor (image 12 series 6). The glenoid labrum demonstrates fraying and irregularity superiorly and at the anterior superior aspect extending down to about 3 o'clock anteriorly. No paralabral cyst is seen. The acromion has a curved undersurface. There are moderate to severe degenerative changes in the acromioclavicular joints. The coracoclavicular and coracoacromial ligaments are intact. Soft tissues about the left shoulder demonstrate no acute abnormalities. Contrast leakage at the axillary pouch is only seen posteriorly. IMPRESSION: 1. Fraying and irregularity at the anterior superior labrum, concerning for tearing. 2. Suspect split tear of the long head of biceps tendon near the anchor. 3. No rotator cuff tear is seen 4. Moderate to severe degenerative changes in the acromioclavicular joint. Dictated by: Dictated on workstation # [id number]
== END ==
LOC: RAD 10:50
PROVIDERS: ATTEND Registered Nurse Critical Care Medicine
DX: Z04.2 Encounter for examination and observation following work accident (principal); M19.012 Primary osteoarthritis, left shoulder; S39.012D Strain of muscle, fascia and tendon of lower back, subsequent encounter; M75.22 Bicipital tendinitis, left shoulder; W20.8XXA Other cause of strike by thrown, projected or falling object, initial encounter; S46.812A Strain of other muscles, fascia and tendons at shoulder and upper arm level, left arm, initial encounter
CPT/HCPCS: 23350; 73040; 73222